=== PATIENT | male | born 1960 | race Caucasian/White ===

== ENCOUNTER 2020-12-31 11:50 | Outpatient (CLI) | payer MEDICAID | END 2020-12-31 11:51 | disposition home or self-care (01) | LOC: COV 11:50 | PROVIDERS: ATTEND Family Medicine | DX: Z20.822 Contact with and (suspected) exposure to COVID-19 (principal) ==

== ENCOUNTER 2021-10-14 11:04 | Emergency (ER) | payer MEDICAID ==
--- NOTE | 2021-10-14 12:44 | ED Physician Documentation ---
PD HPI LOWER EXT INJURY - Stated complaint Stated Complaint: L HIP PX/WEAKNESS - Chief complaint Chief Complaint: Ext Problem - History obtained from History obtained from: Patient - History of Present Illness PD HPI LOW EXT INJURY LOCATION: Left, Hip Type of injury: Other (he had sat down and felt an abrupt onset of pain left hip down laterally to knee with feeling of tightness/spasm of muscles. Has had pain for few months post ramus fracture and had gotten PT last week for ROM of the hip and Tx of IT band.). No: Fall, Blunt / blow Where injury occurred: Home Timing - onset: How many months ago (has had pain in pelvis and hip since May with fracture of ramus and muscle strain lateral hip. Was Rx opiate meds for initial few weeks. Currently with just Tylenol. ON DOAC for DVT, so not able to take regular NSAIDs.) Timing - details: Abrupt onset, Still present (had been doing reasonably well with slow healing and PT recently helping, but abrupt worse pain today with just sitting and twisting some. No new fall nor notable injury.) Worsened by: Moving (left hip, with feeling of spasm to left lateral thigh down to knee level.) Associated symptoms: No: Weakness, Numbness, Swelling, Discolored Similar symptoms before: Diagnosis (has had some pain in hip and pelvis from ramus fracture and hip muscle injury.) Recently seen: Other (physical therapy) Review of Systems Constitutional: denies: Fever, Chills Nose: denies: Rhinorrhea / runny nose, Congestion Throat: denies: Sore throat Cardiac: denies: Chest pain / pressure Respiratory: denies: Cough GI: denies: Abdominal Pain Skin: denies: Rash, Lesions Neurologic: denies: Focal weakness, Numbness PD PAST MEDICAL HISTORY - Past Medical History Cardiovascular: None Respiratory: None Neuro: None Endocrine/Autoimmune: None - Present Medications Home Medications: Ambulatory Orders Medication Instructions Recorded Confirmed Warfarin Sodium [Coumadin] 2 mg PO QDWARFARIN 10/14/21 10/14/21 Warfarin [Coumadin] 5 mg PO QDWARFARIN 10/14/21 10/14/21 dexAMETHasone [Decadron] 4 mg PO DAILY #5 tablet 10/14/21 oxyCODONE [Roxicodone] 5 mg PO Q8H PRN #18 tablet 10/14/21 tiZANidine [Zanaflex] 4 mg PO Q8H PRN #25 tablet 10/14/21 - Allergies Allergies/Adverse Reactions: Allergies Allergy/AdvReac Type Severity Reaction Status Date / Time adhesive Allergy Unknown Verified 10/14/21 11: meperidine [From Demerol] Allergy Unknown Verified 10/14/21 11: shellfish derived Allergy Anaphylaxis Verified 10/14/21 11:26 PD ED PE NORMAL - Vitals Vital signs reviewed: Yes - General General: Alert and oriented X 3, Well developed/nourished, Other (seems in marked pain with movement of left hip, with complaint of pain and spasms. ) - Back Back: No spinal TTP - Derm Derm: Normal color, Warm and dry, No rash - Extremities Extremities: No tenderness to palpate, Normal ROM s pain, Other (left hip tender laterally. Guarded ROM of the hip, so unable to assess passive ROM extent. ) - Neuro Neuro: Alert and oriented X 3, No motor deficit, No sensory deficit, Normal speech Results - Vitals Vitals: Vital Signs - 24 hr 10/14/21 10/14/21 10/14/21 11:19 13:25 15:00 Temperature 36.9 C Heart Rate 82 75 70 Respiratory 18 16 14 Rate Blood Pressure 117/59 L 112/58 L 121/55 L O2 Saturation 97 99 100 10/14/21 16:00 Temperature Heart Rate 73 Respiratory 19 Rate Blood Pressure 118/60 O2 Saturation 99 Oxygen O2 Source Room air - Rads (name of study) femur left Radiology: Prelim report reviewed (no fracture. Occult injury of hip cannot be excluded. ), See rad report CT pelvis Radiology: Prelim report reviewed (prior ramus fracture healing. No new fractures seen. Arthritic changes. ), See rad report PD MEDICAL DECISION MAKING - ED course Complexity details: reviewed results, re-evaluated patient (improved pain after IM meds for pain and PO antispasmodic. ), considered differential, d/w patient Departure - Departure Disposition: 01 Home, Self Care Clinical Impression: Chronic left hip pain Condition: Stable Record reviewed to determine appropriate education?: Yes Instructions: ED Muscle Pain Leg Cramps Prescriptions: dexAMETHasone [Decadron] 4 mg PO DAILY #5 tablet oxyCODONE [Roxicodone] 5 mg PO Q8H PRN #18 tablet PRN Reason: Pain tiZANidine [Zanaflex] 4 mg PO Q8H PRN #25 tablet PRN Reason: Spasms Comments: No new fractures are seen on your x-ray and CT scan of the pelvis and thigh. Presume some muscle spasms and a flareup of the arthritis. Continue current usual medications. Continue Tylenol 500 mg 4 times a day. To that add oxycodone 3 times a day as needed for worse pain. Also tizanidine muscle relaxant 3 times daily for spasms and stiffness. We can add Decadron steroid anti-inflammatory presuming some inflammation as well. This will not interfere with your Coumadin like NSAIDs would. Follow-up with your primary care, call for an appointment. If transmitted your prescriptions to [facility] pharmacy in [place]. My narcotic instructions I am prescribing a short course of narcotic pain medication for you. These are potentially dangerous and addictive medications that should be used carefully. These medications may constipate you. Take an sumc-dtw-rpqemjc stool softener such as docusate twice daily with plenty of water while taking these medications. If you go 24 hours without a bowel movement, take wsux-mfk-eycsoxs MiraLAX, per package instructions. Do not drink or drive while taking these medications. If you received narcotic or sedating medications while in the emergency departm ent do not drive for 24 hours. Store this medication in a safe, secure place and out of reach of children. It is a violation of federal law to give or sell this medication to another person or to use in a manner other than prescribed. The ED will not refill narcotic prescriptions, including prescriptions lost or stolen. You can dispose of unwanted medications at the [facility]'s office or at several pharmacies such as [facility]. Discharge Date/Time: 10/14/21 16:03
[2021-10-14] MEDS ORDERED: KETOROLAC 30 MG/ML VIAL IM STA (13:08)
[2021-10-14] MEDS ORDERED: HYDROmorphone 1 MG/ML CARPUJECT IM STA (13:09)
[2021-10-14] MEDS ORDERED: methocarbamoL 500 MG TABLET PO STA (13:09)
--- NOTE | 2021-10-14 14:51 | XRAY Report ---
PROCEDURE: Femur 2V LT INDICATIONS: left thigh pain today TECHNIQUE: 2 views of the femur were acquired. COMPARISON: None. FINDINGS: Bones: No fractures or dislocations. No suspicious bony lesions. Osteopenia is present. Soft tissues: No suspicious soft tissue calcifications or masses. IMPRESSION: Limited exam secondary to osteopenia. No visualized acute fracture or dislocation. However, occult in jury cannot be excluded. Recommend short interval imaging follow-up in 7-10 days as clinically indica tiffani for additional evaluation. Reviewed by: Monica Arias MD on 10/14/2021 2:50 PM PST Approved by: Monica Arias MD on 10/14/2021 2:50 PM PST Station ID: [id number]
--- NOTE | 2021-10-14 14:51 | CT Report ---
PROCEDURE: PELVIS WO INDICATIONS: worse pain left hip/pelvis, prior ramus fracture TECHNIQUE: Noncontrast 3 mm axial sections acquired through the bony pelvis, with coronal and sagittal reformatt ing. For radiation dose reduction, the following was used: automated exposure control, adjustment of mA and/or kV according to patient size. COMPARISON: X-ray hip and femur FINDINGS: Image quality: Excellent. Bones: The bones are mottled in appearance with osteopenia. There are areas of irregularity within t he superior acetabulum. In addition, areas of irregularity with superimposed sclerosis is present wit hin the superior and inferior left pubic rami. Soft tissues: The visualized soft tissues are unremarkable. IMPRESSION: 1. No gross fracture. However, there is diffuse osteopenia within the iliac bone and acetabulum as we ll as pubic rami. Rami appears to represent old fracture. While there are areas of irregularity withi n the acetabulum, this could represent areas of osteopenia. If concern for fracture persists, MRI is recommended. Reviewed by: Monica Arias MD on 10/14/2021 2:49 PM PST Approved by: Monica Arias MD on 10/14/2021 2:49 PM PST Station ID: [id number]
[2021-10-14] MEDS ORDERED: oxyCODONE 5 MG TABLET PO STA (15:26)
[2021-10-14] MEDS ORDERED: diazePAM 5 MG TABLET PO STA (15:27)
[2021-10-14 16:03] VITALS: BP 118/60
== END 2021-10-14 16:03 | disposition home or self-care (01) ==
LOC: ED 11:04
DX: M25.552 Pain in left hip (principal); G89.29 Other chronic pain; M79.652 Pain in left thigh; M62.838 Other muscle spasm; M85.89 Other specified disorders of bone density and structure, multiple sites; Z86.718 Personal history of other venous thrombosis and embolism; Z79.01 Long term (current) use of anticoagulants
CPT/HCPCS: 72192; 73552; 96372; 99283; 99284; A9270; J1170

== ENCOUNTER 2021-12-02 14:27 | Emergency (ER) | payer MEDICAID ==
[2021-12-02] MEDS ORDERED: HYDROmorphone 1 MG/ML CARPUJECT IVP STA (14:41)
--- NOTE | 2021-12-02 14:44 | ED Physician Documentation ---
History of Present Illness - Stated complaint Stated Complaint: LEFT HIP PX - Chief complaint Chief Complaint: Ext Problem - Additonal information Additional information: 61-year-old male presents emergency department for evaluation of acute left lower back pain. Reports that he had been shopping when he got back into his car (his sisters which usually causes pain) he developed a sudden pain in his low back with radiation to the thigh. He is unable to walk now without assistance. He has had this similarly in the past and thinks it sciatica. he feels like his right leg and calf are is spasm. No saddle anesthesia or fevers. unable to stand or ambulate secondary to pain and is infact writhing in pain on exam He does take Coumadin secondary to history of previous pulmonary embolus. Daily tobacco user Patient reports that he had a hip fracture in April 2021. It was treated nonoperatively. Chronic pain since then. He did discuss his pain with his primary doctor yesterday. He is prescribed a muscle relaxer as well as tramado l. The tramadol was not filled. denies fevers, saddle anesthesia. no loss of bowel or baldder function. + numbness/tingling lateral leg thigh left Review of Systems Constitutional: reports: Reviewed and negative Eyes: reports: Reviewed and negative Ears: reports: Reviewed and negative Nose: reports: Reviewed and negative Throat: reports: Reviewed and negative Cardiac: reports: Reviewed and negative GI: reports: Reviewed and negative Musculoskeletal: reports: Back pain, Extremity pain Neurologic: reports: Reviewed and negative Psychiatric: reports: Reviewed and negative PD PAST MEDICAL HISTORY - Past Medical History Cardiovascular: None Respiratory: None Neuro: None Endocrine/Autoimmune: None - Present Medications Home Medications: Ambulatory Orders Medication Instructions Recorded Confirmed Warfarin Sodium [Coumadin] 2 mg PO QDWARFARIN 10/14/21 10/14/21 Warfarin [Coumadin] 5 mg PO QDWARFARIN 10/14/21 10/14/21 dexAMETHasone [Decadron] 4 mg PO DAILY #5 tablet 10/14/21 oxyCODONE [Roxicodone] 5 mg PO Q8H PRN #18 tablet 10/14/21 tiZANidine [Zanaflex] 4 mg PO Q8H PRN #25 tablet 10/14/21 oxyCODONE [Roxicodone] 5 mg PO TID PRN #20 tablet 12/02/21 - Allergies Allergies/Adverse Reactions: Allergies Allergy/AdvReac Type Severity Reaction Status Date / Time adhesive Allergy Unknown Verified 12/02/21 14:35 meperidine [From Demerol] Allergy Unknown Verified 12/02/21 14:35 shellfish derived Allergy Anaphylaxis Verified 12/02/21 14:35 - Social History Does the pt smoke?: Yes Smoking Status: Current every day smoker PD ED PE EXPANDED - General General: Alert, In Pain (pt appears to be in pain, unable to find a position of comfort) - Cardiac Cardiac: Regular Rate, Radial strong equal, Pedal strong equal, Cap refill < 2 sec - Respiratory Respiratory: Clear to ausultation jason. No: Distress, Labored - Abdomen Abdomen: Normal Bowel sounds. No: Tender to palpation - Back Back: Soft tissue tenderness (Tenderness at the left SI point with radiation down the buttock into the left leg. No midline vertebral tenderness. motor strength 4/5 left leg. 2+ patellar bilaterally. numbness lateral left leg). No: Vertebral tenderness Results - Vitals Vitals: Vital Signs - 24 hr 12/02/21 14:31 Temperature 36.1 C L Heart Rate 98 Respiratory 20 Rate Blood Pressure 123/70 O2 Saturation 97 Oxygen O2 Source Room air - Rads (name of study) Lumbar/pelvic CT Radiology: Final report received (No significant change in ill-defined lucency and trabecular thickening involving the left iliac wing obturator ring femoral head and neck with surrounding muscular edema. Findings suggestive of patient's disease. Healing pathologic fracture of the left inferior pubic rami. Severe chronic pancreat) PD MEDICAL DECISION MAKING - ED course Complexity details: reviewed results, re-evaluated patient, considered differential, d/w patient ED course: 61-year-old male presents emergency department for evaluation of acute though chronic left low back and hip pain. He did have an iliac fracture in April of this last year which was treated conservatively. He had been out and about today and sat in his sister's car which exacerbated his pain presented to the ER unable to stand and unwilling to walk. No saddle anesthesia or loss of bowel/bladder incontinence Repeat lumbar and pelvic imaging it does show show the healing iliac fracture as well as a findings are suggestive of Paget's disease. Patient was administered multiple doses of Dilaudid here in the emergency department followed by Valium. Once this had occurred the patient was able to stand at the bedside though he was still unwilling to walk. He was thus administered 60 mg of Toradol IM and then able to stand at the bedside and grudgingly walk, albeit painful. Pt has a rx for flexeril. he is encouraged to take motrin and tylenol for pain. Will rx limited oxycodone for severe pain. I am prescribing a short course of short-acting opioid pain medication for this patient. I have reviewed the patients [employer]CISION INSTRUMENT [employer]ER AND REPAIRER and no concerning findings were noted. I have discussed that the opioids are for short term therapy only, and will not be refilled from the ED. Departure - Departure Disposition: Home, Self Care Clinical Impression: Left-sided low back pain with left-sided sciatica Qualifiers: Chronicity: chronic Qualified Code(s): M54.42 - Lumbago with sciatica, left side Condition: Stable Record reviewed to determine appropriate education?: Yes Instructions: ED Back Spasm No Trauma Ch Prescriptions: oxyCODONE [Roxicodone] 5 mg PO TID PRN #20 tablet PRN Reason: Pain Comments: Neil you are seen in the emergency department today for pain in your low back and spasm in your left leg. The CT scan of your back and pelvis did not reveal any new fractures. The old fracture is healing nicely. Please continue to use the muscle relaxer prescribed by your primary care doctor. I encourage use Tylenol or ibuprofen jxxx-csz-[id number] for pain and discomfort. For severe pain I have prescribed a limited amount of oxycodone. If at any point you lose control of your bowel or bladder function, develop high fevers or have numbness in your genital area then please return immediately to the ER. Please discuss this ED visit with your primary care provider. You would benefit from referral for physical therapy for longer-term management of your hip and back pain. Your prescriptions have been electronically sent to the [facility] in [place]. I am prescribing a short course of narcotic pain medication for you. These are potentially dangerous and addictive medications that should be used carefully. These medications may constipate you. Take an wvvo-kin-ipbexfc stool softener (docusate) twice daily with plenty of water while taking these medications. If you go 24 hours without a bowel movement, take wobk-nxp-xsnbjcl miralax, per package instructions. Do not drink or drive while taking these medications. If you received narcotic or sedating medications while in the emergency department, do not drive for 24 hours. Store this medication in a safe, secure place and out of reach of children. It is a violation of federal law to give or sell this medication to another person or to use in a manner other than prescribed. The ED will not refill narcotic prescriptions, including prescriptions lost or stolen. To dispose of unwanted medications: 1. [facility] at [address] in [place] has a medication drop box. They accept prescription medications (in pill form) Tuesday through Tuesday 9:00 a.m. to 5:00 p.m. 2. The [facility] [employer] accepts prescription medications (in pill form only) for disposal year round. Call for more information. 3. Contact the [facility] for the next [facility] sponsored prescription drug collection event. , [phone], or [phone]; Note that many narcotic pain relievers also contain Tylenol/acetaminophen. Please ensure that your total dose of acetaminophen from all sources does not exceed 3 g (3000 mg) per day.
[2021-12-02] MEDS ORDERED: HYDROmorphone 1 MG/ML CARPUJECT IM STA ×2 (14:53→15:39)
--- NOTE | 2021-12-02 16:01 | CT Report ---
PROCEDURE: LUMBAR SPINE WO INDICATIONS: left low back pain with radiation TECHNIQUE: Noncontrast 3 mm thick sections acquired from the T12 level to the sacrum. Sagittal and coronal refo rmats were constructed. For radiation dose reduction, the following was used: automated exposure co ntrol, adjustment of mA and/or kV according to patient size. COMPARISON: 10/14/[address] examination dated 12/02/2021. FINDINGS: Image quality: Excellent. Bones: There is normal bony alignment. No acute vertebral body compression fractures. There is diff use trabecular thickening involving the left femoral head and neck, left obturator ring, and left sofiya ac wing, as before. Healing mildly displaced pathologic fracture of the left inferior pubic ramus. Ce ntral spinal caliber is of normal overall caliber. No pars defects. Mild multilevel canal stenoses secondary to disc and facet disease. Multilevel foraminal stenoses, worst at L3-L4 and L4-L5 where th ere are moderate foraminal stenoses secondary to disc and facet disease. Soft tissues: Severe calcifications of the pancreas. There is thickening of the left iliacus muscle and left gluteus musculature adjacent to the left iliac wing. No retroperitoneal masses or hematomas. Visualized aorta is normal in caliber. IMPRESSION: 1. No significant change in ill-defined lucency and trabecular thickening involving the left iliac wi ng, obturator ring, femoral head and neck, with surrounding muscular edema. Findings suggestive of Pa get's disease. Nonemergent MRI of the pelvis with and without intravenous contrast is recommended for further assessment, and to evaluate for infection and neoplasm. 2. Healing pathologic fracture of the left inferior pubic ramus. 3. Severe chronic pancreatitis. Reviewed by: Jewell Miles MD on 12/02/2021 3:59 PM PST Approved by: Jewell Miles MD on 12/02/2021 3:59 PM PST Station ID: [id number]
--- NOTE | 2021-12-02 16:05 | CT Report ---
PROCEDURE: PELVIS WO INDICATIONS: hip fracture 2020 TECHNIQUE: Noncontrast 3 mm axial sections acquired through the bony pelvis, with coronal and sagittal reformatt ing. For radiation dose reduction, the following was used: automated exposure control, adjustment of mA and/or kV according to patient size. COMPARISON: 10/14/2021. FINDINGS: Image quality: Excellent. Bones: There is diffuse ill-defined lucency and trabecular thickening involving the left iliac wing, obturator ring, femoral head and neck. Ill-defined lucency and sclerosis within the right ischium an d inferior pubic ramus. Healing pathologic left inferior pubic ramus fracture is present. Mildly disp laced pathologic left femoral neck fracture (series 7 image 51). Soft tissues: There is swelling of the left iliacus, obturator internus, and gluteus musculature adj acent to the left iliac wing. IMPRESSION: 1. Lucency and trabecular thickening involving the left iliac bone, obturator ring, right ischium, le ft femoral head and neck, with adjacent muscular edema as described above, most suggestive of Paget's disease. Associated pathologic fractures of the left inferior pubic ramus and femoral neck. 2. Nonemergent MRI of the pelvis with and without intravenous contrast is recommended to assess for i nfection or neoplasm. Reviewed by: Jewell Miles MD on 12/02/2021 4:03 PM PST Approved by: Jewell Miles MD on 12/02/2021 4:03 PM PST Station ID: [id number]
[2021-12-02] MEDS ORDERED: diazePAM INJ 5 MG/ML SYRINGE IM STA (16:15)
[2021-12-02] MEDS ORDERED: KETOROLAC 60 MG/2 ML VIAL IM STA (16:44)
[2021-12-02] MEDS ORDERED: CHERRY SYRUP 10 ML UDC PO ONE (16:46)
[2021-12-02] MEDS ORDERED: DEXAMETHASONE 10 MG/ML VIAL PO STA (16:46)
[2021-12-02 18:46] VITALS: BP 150/60
== END 2021-12-02 18:45 | disposition home or self-care (01) ==
LOC: ED 14:27
DX: M54.42 Lumbago with sciatica, left side (principal); Z72.0 Tobacco use; Z86.711 Personal history of pulmonary embolism; Z79.01 Long term (current) use of anticoagulants
CPT/HCPCS: 72131; 72192; 96372; 99284; A9270; J1170

== ENCOUNTER 2021-12-06 11:10 | Outpatient (CLI) | payer MEDICAID | END 2021-12-06 11:11 | disposition critical access hospital (66) | LOC: EMS 11:10 | DX: R22.42 Localized swelling, mass and lump, left lower limb (principal); M79.605 Pain in left leg | CPT/HCPCS: A0425; A0429; A0999 ==

== ENCOUNTER 2021-12-06 11:26 | Inpatient (IN) | payer MEDICAID ==
[2021-12-06 11:53] LABS: BASOPHILS % (AUTO) 0.3 %; EOSINOPHILS % (AUTO) 0.1 %; HGB - HEMOGLOBIN 12.8 g/dL (14.0-18.0); LYMPHOCYTES # (AUTO) 1.5 10^3/uL (1.5-3.5); LYMPHOCYTES % (AUTO) 10.8 %; MEAN CORPUSCULAR HEMOGLOBIN 31.7 pg (27.0-31.0); MEAN CORPUSCULAR HGB CONC 33.7 g/dL (32.0-36.0); MEAN CORPUSCULAR VOLUME 94.1 fL (80.0-94.0); MEAN PLATELET VOLUME 8.6 fL (7.4-11.4); MONOCYTES # (AUTO) 1.4 10^3/uL (0.0-1.0); MONOCYTES % (AUTO) 10.2 %; NEUTROPHILS # (AUTO) 10.6 10^3/uL (1.5-6.6); NEUTROPHILS % (AUTO) 78.3 %; PLT - PLATELET COUNT 344 10^3/uL (130-450); RED BLOOD COUNT 4.04 10^6/uL (4.70-6.10); RED CELL DISTRIBUTION WIDTH 13.3 % (12.0-15.0); WHITE BLOOD COUNT 13.5 x10^3/uL (4.8-10.8)
[2021-12-06 12:03] LABS: CALCIUM 9.4 mg/dL (8.5-10.3); POTASSIUM 3.9 mmol/L (3.5-5.0)
[2021-12-06 12:07] LABS: ALKALINE PHOSPHATASE 141 IU/L (42-121); ALT ALANINE AMINOTRANSFERASE 13 IU/L (10-60); AST ASPARTATE AMINOTRANSFERASE 14 IU/L (10-42); BILIRUBIN,TOTAL 0.5 mg/dL (0.2-1.0); ETOH - ETHANOL < 5.0 mg/dL; LIPASE 23 U/L (22-51)
[2021-12-06 12:08] LABS: PT - PROTHROMBIN TIME 56.9 secs (9.9-12.6)
[2021-12-06] MEDS ORDERED: HYDROmorphone 1 MG/ML CARPUJECT IVP STA (12:13)
--- NOTE | 2021-12-06 12:17 | ED Physician Documentation ---
PD HPI LOWER EXT INJURY - Stated complaint Stated Complaint: GENERAL PX - Chief complaint Chief Complaint: Ext Problem - History obtained from History obtained from: Patient - Additional information Additional information: 61-year-old gentleman with alcohol and tobacco abuse history, quit drinking alcohol about 4 years ago, quit smoking 3 days ago. In December of last year he started to develop pain on the left side of the pelvis and then it became more severe in the summer and was subsequently diagnosed with pathologic fractures of the left pelvis in May by CT. He was doing okay with physical therapy but continues to have relapses of the pain, the most severe relapse started 5 days ago after getting out of the car. There was no specific injury. 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 He returns today now with more swelling above the left knee and pain that is intractable. He does note a 5 pound weight loss in the last few weeks with very poor appetite. No history of primary malignancy. He does have a history of pancreatitis in the past. 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 Review of Systems Ten Systems: 10 systems reviewed and negative Constitutional: reports: Weight Loss. denies: Fever, Chills Throat: denies: Sore throat Cardiac: denies: Chest pain / pressure, Palpitations Respiratory: denies: Dyspnea, Cough PD PAST MEDICAL HISTORY - Past Medical History Cardiovascular: None Respiratory: None Neuro: None Endocrine/Autoimmune: None - Present Medications Home Medications: Ambulatory Orders Medication Instructions Recorded Confirmed Warfarin Sodium [Coumadin] 2 mg PO QDWARFARIN 10/14/21 10/14/21 Warfarin [Coumadin] 5 mg PO QDWARFARIN 10/14/21 10/14/21 dexAMETHasone [Decadron] 4 mg PO DAILY #5 tablet 10/14/21 oxyCODONE [Roxicodone] 5 mg PO Q8H PRN #18 tablet 10/14/21 tiZANidine [Zanaflex] 4 mg PO Q8H PRN #25 tablet 10/14/21 oxyCODONE [Roxicodone] 5 mg PO TID PRN #20 tablet 12/02/21 - Allergies Allergies/Adverse Reactions: Allergies Allergy/AdvReac Type Severity Reaction Status Date / Time adhesive Allergy Unknown Verified 12/06/21 11:33 meperidine [From Demerol] Allergy Unknown Verified 12/06/21 11:33 shellfish derived Allergy Anaphylaxis Verified 12/06/21 11:33 - Social History Does the pt smoke?: Yes Smoking Status: Current every day smoker Does the pt drink ETOH?: Yes Does the pt have substance abuse?: No - Immunizations Immunizations are current?: No PD ED PE NORMAL - Vitals Vital signs reviewed: Yes - General General: Alert and oriented X 3, No acute distress - HEENT HEENT: PERRL, EOMI - Neck Neck: Supple, no meningeal sign, No bony TTP - Cardiac Cardiac: RRR, No murmur - Respiratory Respiratory: No respiratory distress, Clear bilaterally - Abdomen Abdomen: Normal bowel sounds, Soft, Non tender - Back Back: No CVA TTP, No spinal TTP - Derm Derm: Normal color, Warm and dry - Extremities Extremities: Other (He is holding the left hip externally rotated and flexed. Any movement causes him severe pain in the femur and hip. He is swollen in the area above the knee with tenderness there as well.) - Neuro Neuro: Alert and oriented X 3, Normal speech - Psych Psych: Normal mood, Normal affect Results - Vitals Vitals: Vital Signs - 24 hr 12/06/21 12/06/21 11:30 13:33 Temperature 36.3 C L 36.6 C Heart Rate 99 108 H Respiratory 18 16 Rate Blood Pressure 134/84 H 137/78 H O2 Saturation 100 97 Oxygen O2 Source Room air - Labs Labs: Laboratory Tests 12/06/21 12/06/21 12/06/21 11:47 11:47 11:47 WBC 13.5 H RBC 4.04 L Hgb 12.8 L Hct 38.0 L MCV 94.1 H MCH 31.7 H MCHC 33.7 RDW 13.3 Plt Count 344 MPV 8.6 Neut # (Auto) 10.6 H Lymph # (Auto) 1.5 [place] # (Auto) 1.4 H Eos # (Auto) 0.0 Baso # (Auto) 0.0 Absolute Nucleated RBC 0.00 Nucleated RBC % 0.0 PT 56.9 H INR 5.0 H* Sodium 132 L Potassium 3.9 Chloride 96 L Carbon Dioxide 26 Anion Gap 10.0 BUN 30 H Creatinine 1.0 Estimated GFR (MDRD) 76 L Glucose 169 H Calcium 9.4 Total Bilirubin AST ALT Alkaline Phosphatase Lipase Ethyl Alcohol 12/06/21 11:47 WBC RBC Hgb Hct MCV MCH MCHC RDW Plt Count MPV Neut # (Auto) Lymph # (Auto) [place] # (Auto) Eos # (Auto) Baso # (Auto) Absolute Nucleated RBC Nucleated RBC % PT INR Sodium Potassium Chloride Carbon Dioxide Anion Gap BUN Creatinine Estimated GFR (MDRD) Glucose Calcium Total Bilirubin 0.5 AST 14 ALT 13 Alkaline Phosphatase 141 H Lipase 23 Ethyl Alcohol < 5.0 PD MEDICAL DECISION MAKING - ED course ED course: 61-year-old gentleman Augustine presents with severe pain in the left hip. Extremity x-rays today show a femoral neck fracture, probably pathologic, potentially rela tiffani to Paget's disease although he does not carry a formal diagnosis of this. Differential diagnosis includes metastatic disease with pathologic fracture. As such a chest x-ray was done without pertinent positive findings. He also has more swelling in the leg now so a ultrasound was done to rule out DVT and there was none. He was administered 5 mg of zoledronic acid to treat Paget's disease. His INR is supratherapeutic at 5. Case discussed by phone with our orthopedic surgeon, Dr. West who feels we can manage this here after his INR is fixed or drifts down on the medicine service. Spoke with Dr. Nava for admission at 3:06 PM. Departure - Departure Disposition: [facility] DC/Xfer Clinical Impression: Pathologic fracture of femoral neck, Supratherapeutic INR Condition: Stable
[2021-12-06] MEDS ORDERED: MORPHINE 2 MG/ML CARPUJECT IVP STA (12:52)
[2021-12-06] MEDS ORDERED: KETOROLAC 15 MG/ML VIAL IVP STA (12:52)
--- NOTE | 2021-12-06 13:32 | Ultrasound Report ---
PROCEDURE: Duplex Ext Veins Left INDICATIONS: leg pain TECHNIQUE: Real-time imaging, as well as color and pulse Doppler interrogation, were performed of the lower extr emity deep veins from the inguinal ligament to the popliteal fossa. COMPARISON: None. FINDINGS: The deep veins are normally compressible, and free of intraluminal thrombus. Color and pu lse Doppler demonstrate normal phasic intraluminal flow. There is normal augmentation response to di stal compression maneuver. IMPRESSION: No evidence of left lower extremity deep venous thrombosis. Reviewed by: Dannie Headley DO on 12/06/2021 12:30 PM [facility] Approved by: Dannie Headley DO on 12/06/2021 12:30 PM [facility] Station ID: [id number]
--- NOTE | 2021-12-06 14:14 | XRAY Report ---
PROCEDURE: Chest 1 View X-Ray INDICATIONS: weight loss TECHNIQUE: One view of the chest was acquired. COMPARISON: None FINDINGS: Surgical changes and devices: Kyphoplasty changes of the midthoracic spine. Lungs and pleura: No pleural effusions or pneumothorax. Lungs are clear. Mediastinum: Mediastinal contours appear normal. Heart size is normal. Bones and chest wall: No suspicious bony lesions. Overlying soft tissues appear unremarkable. IMPRESSION: No evidence of an acute cardiopulmonary abnormality. Reviewed by: Dannie Headley DO on 12/06/2021 1:12 PM [facility] Approved by: Dannie Headley DO on 12/06/2021 1:12 PM [facility] Station ID: [id number]
--- NOTE | 2021-12-06 14:15 | XRAY Report ---
PROCEDURE: Knee 3 View LT INDICATIONS: leg pain TECHNIQUE: 3 views of the left knee(s) were acquired. COMPARISON: None. FINDINGS: Bones: No fractures or dislocations. No suspicious bony lesions. Diffuse osseous demineralization. Soft tissues: No joint effusion. No suspicious soft tissue calcifications. IMPRESSION: No evidence of an acute osseous abnormality. Reviewed by: Dannie Headley DO on 12/06/2021 1:14 PM [facility] Approved by: Dannie Headley DO on 12/06/2021 1:14 PM [facility] Station ID: [id number]
--- NOTE | 2021-12-06 14:18 | XRAY Report ---
PROCEDURE: Hip w/Pelvis 2-3V LT INDICATIONS: leg pain TECHNIQUE: AP pelvis with lateral view(s) of the left hip(s). COMPARISON: None. FINDINGS: Exam is limited given obliquity on every image. Bones: There is extensive osseous demineralization. There is a displaced and angulated left femoral n donte fracture. Evaluation of the pubic ring demonstrates no displaced fracture however limited in eval uation given overlying bowel and obliquity along with decreased mineralization. Soft tissues: The visualized bowel gas pattern is normal. No suspicious soft tissue calcifications. IMPRESSION: Displaced and angulated proximal left femur fracture. Reviewed by: Dannie Headley DO on 12/06/2021 1:16 PM [facility] Approved by: Dannie Headley DO on 12/06/2021 1:16 PM [facility] Station ID: [id number]
[2021-12-06] MEDS ORDERED: ZOLEDRONIC ACID 5 MG/100 ML IV STA (14:41)
[2021-12-06] MEDS ORDERED: ZOLEDRONIC ACID 3 MG in SODIUM CHLORIDE 0.9% 100ML 100 ML IV SCH (15:00)
[2021-12-06] MEDS ORDERED: ONDANSETRON 4 MG/2 ML VIAL IVP PRN (15:06)
[2021-12-06] MEDS ORDERED: ONDANSETRON ODT 4 MG TABLET TL PRN (15:06)
[2021-12-06 15:31] LABS: CORONAVIRUS 229E-RESP PCR NOT DETECTED; CORONAVIRUS HKU1-RESP PCR NOT DETECTED; CORONAVIRUS NL63-RESP PCR NOT DETECTED; CORONAVIRUS OC43-RESP PCR NOT DETECTED; HUMAN METAPNEUMOVIRUS NOT DETECTED; INFLUENZA A- RESP PCR PANEL NOT DETECTED; RHINOVIRUS/ENTEROVIRUS NOT DETECTED; SARS-CoV-2 -RESP PCR PANEL NOT DETECTED
[2021-12-06 15:32] LABS: B. PARAPERTUSSIS- RESP PCR PAN NOT DETECTED; B. PERTUSSIS- RESP PCR PANEL NOT DETECTED; C. PNEUMONIAE- RESP PCR PANEL NOT DETECTED; INFLUENZA B - RESP PCR PANEL NOT DETECTED; M. PNEUMONIAE- RESP PCR PANEL NOT DETECTED; PARAINFLUENZA VIRUS 1 NOT DETECTED; PARAINFLUENZA VIRUS 2 NOT DETECTED; PARAINFLUENZA VIRUS 3 NOT DETECTED; PARAINFLUENZA VIRUS 4 NOT DETECTED; RSV- RESP PCR PANEL NOT DETECTED
--- NOTE | 2021-12-06 15:58 | HISTORY & PHYSICAL EXAMINATION ---
Chief Complaint - Chief Complaint Chief Complaint: left hip pain History of Present Illness - Admitted From Admitted From:: emergency department - History of Present Illness HPI Comment/Other: Pt presented today to the ED due to continued left hip pain after he was seen 12/02. He had been in the car with his daughter driving when he had acute onset hip pain and was unable to bear weight. He had a previous left inferior pubic ramous pelvic fracture (05/2021) that occurred suddenly while he was sitting on the edge of his bathtub and was also found to have a femoral neck fracture at the ED on 12/02 that were again visualized today. He states that he has had a history of frequent fractures since the age of 3 when he fractured his left femur, fibula and tibia in a sledding accident. He has fractured ribs, both ra dius and ulna bones, wrist bones, and vertebrae. He denies any fevers, weight loss, decreased appetite, or trauma to the area. His PCP is Dr. Kruse at [facility] - he has not been in a while due to distance. History - Past Medical History Cardiovascular: reports: None Respiratory: reports: None Neuro: reports: Peripheral neuropathy Endocrine/Autoimmune: reports: None : reports: Nocturia HEENT: reports: None Psych: reports: Depression Musculoskeletal: reports: Other (frequent fractures starting at age 3 with left femur and tib/fib from a sledding accident, T7-T8 compression fracture, multiple broken ribs from wrestling, has broken both radius/ulna, multiple metacarpals, stress fx R leg) Derm: reports: None - Past Surgical History Ortho: reports: Other (fracture repairs) HEENT: reports: Tonsil/Adenoidectomy - Family & Social History Family History Comment/Other: The patient's mother is 84 yeras old and has Alzheimer's. His father is 87 years old and has a history of prostate cancer. He has one sister and one brother. He also has 2 half-sisters and 2 half-brothers, one of which struggles with depression. His in 2018 and he has no biological children. Living arrangement: At home Living Situation: With family Social History Notes: Patient lives at home in a 2-story home with his sister. 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 He has not worked since 2017 when he stopped to take care of his . - Substance History Use: Uses substance without health or social issues: Tobacco (patient reports he quit smoking this wk, has a previous history of 2 PPD x 50 years) Abuse: Recurrent use of substance despite neg consequences: Alcohol (patient reports alcohol abuse (bottle of schnapps daily) that he has struggle with for 45 years, he quit drinking in 2018 after the of his who from her alcoholism and liver failure) - POLST Patient has POLST: No Meds/Allgy - Home Medications Home Medications: Ambulatory Orders Medication Instructions Recorded Confirmed Warfarin Sodium [Coumadin] 2 mg PO QDWARFARIN 10/14/21 10/14/21 Warfarin [Coumadin] 5 mg PO QDWARFARIN 10/14/21 10/14/21 dexAMETHasone [Decadron] 4 mg PO DAILY #5 tablet 10/14/21 oxyCODONE [Roxicodone] 5 mg PO Q8H PRN #18 tablet 10/14/21 tiZANidine [Zanaflex] 4 mg PO Q8H PRN #25 tablet 10/14/21 oxyCODONE [Roxicodone] 5 mg PO TID PRN #20 tablet 12/02/21 - Allergies Allergies/Adverse Reactions: Allergies Allergy/AdvReac Type Severity Reaction Status Date / Time adhesive Allergy Unknown Verified 12/06/21 11:33 meperidine [From Demerol] Allergy Unknown Verified 12/06/21 11:33 shellfish derived Allergy Anaphylaxis Verified 12/06/21 11:33 Review of Systems - Constitutional Constitutional: denies: Fever, Poor appetite, Diaphoresis, Night sweats, Weight loss (previous wt loss endorsed but no recent unintentional) - Eyes Eyes: denies: Blurred vision, Spots in vision, Field loss, Vision loss, Dipolpia - Ears, Nose & Throat Ears, Nose & Throat: denies: Hearing loss, Tinnitus, Vertigo, Nosebleeds - Cardiovascular Cariovascular: denies: Irregular heart rate, Palpitations, Chest pain, Edema, Lightheadedness, Syncope - Respiratory Respiratory: denies: Cough, Wheezing, Snoring, SOB at rest, SOB with exertion - Gastrointestinal Gastrointestinal: denies: Abdominal pain, Abdominal distention, Constipation, Diarrhea, Change in bowel habits - Genitourinary Genitourinary: reports: Urgency, Nocturia (waking 4-5 x nightly with weak stream). denies: Dysuria - Musculoskeletal Musculoskeletal: reports: Joint pain (left hip down to knee) - Integumentary Integumentary: denies: Rash, Lesions, Lumps - Neurological Neurological: denies: Headache, Dizziness, Numbness - Psychiatric Psychiatric: reports: Depression, Suicidal. denies: Delusions, Hallucinations, Homicidal - Endocrine Endocrine: denies: Polyuria, Polydypsia - Hematologic/Lymphatic Hematologic/Lymphatic: denies: Anemia, Bruising Prior Level of Functionality: Patient states that he was previously very active with golf and walking. He is able to ambulate independently at home and complete all his daily tasks. His bedroom is upstairs in his home and since his pelvic fracture he has been scooting up the stairs on his buttock and lifting himself up with his arms at the top of the stairs. Exam - Vital Signs Vital Signs: Vital Signs x48h Temp Pulse Resp BP Pulse Ox 12/06/21 13:33 36.6 C 108 H 16 137/78 H 97 12/06/21 11:30 36.3 C L 99 18 134/84 H 100 - Physical Exam General Appearance: positive: No acute distress, Alert Eyes Bilateral: positive: Normal inspection, PERRL Neck: positive: Nml inspection, No JVD Respiratory: positive: Chest non-tender, No respiratory distress, Breath sounds nml Cardiovascular: positive: Regular rate & rhythm, No murmur, No gallop Peripheral Pulses: positive: 1+ Abdomen: positive: Non-tender, Nml bowel sounds, No distention Skin: positive: Color nml, No rash, Warm, Dry Extremities: positive: Nml appearance, No pedal edema, Other (tenderness around left hip and down to left knee, no signs of neurovascular compromise.) Neurologic/Psychiatric: positive: Oriented x3, Mood/affect nml Conclusion/Plan - Problem List (1) Pathologic fracture of femoral neck Conclusion/Plan: This fracture had intended to be fixed surgically tomorrow with Dr. West however after extensive discussion and review of history and imaging, this patient qualifies for a more extensive work up. This fracture would likely heal very poorly after repair due to underlying pathology. (2) Frequent fractures of bone Conclusion/Plan: Discussed case with orthopedic surgeon and there is concern for underlying pathology. Have considered etiologies such as Paget's disease of the bone, multiple myeloma, osteogenesis imperfecta, but his history does not match so far with our differential. His most recent pelvic fracture and femoral neck fracture have both been atraumatic and are pathologic based on xray results. His frequent fractures have severely disabled the patient from doing the things he loves and have contributed to his current suicidal ideation. Called [facility] for possible transfer for further work-up and surgical repair. (3) Supratherapeutic INR Conclusion/Plan: Patient presents with a supratherapeutic INR of 5 today. Has been given Vit K orally to lower this if he is to undergo surgery tomorrow. Will continue to monitor INR frequently. (4) Suicidal ideation Conclusion/Plan: Today he endorses that he has struggled with suicidal ideation that has been increased due to his inability to golf and do the things he loves. He has thought of a specific plan to shoot himself and he does have the means at his home. He states that he has never unlocked the gun cabinet and would not go through with it because "it would kill his mother" and he couldn't do that to her. He is currently taking Fluoxetine 10 mg from his PCP and had discussed increasing his dose to 20 mg recently. We will continue to monitor him and connect him with any resources we can. (5) Elevated WBC count Conclusion/Plan: Patient has elevated WBC at 13.5. Chest xray was unremarkable. Will order urinalysis to investigate further etiology. (6) BPH w urinary obs/LUTS Conclusion/Plan: Patient reports waking 4-5 times nightly to urinate with a weak stream. Recommend f/u with his PCP for further management. (7) Chronic pulmonary embolism Conclusion/Plan: Patient has a hx of developing PE in the past. He is on automotive specialty technician anticoagulation that was previously managed by his PCP. - Lab Results Fish Bones: 12/06/21 11:47 12/06/21 11:47
[2021-12-06] MEDS: MORPHINE 2 MG/ML CARPUJECT IVP PRN ×2 (16:27→19:34)
[2021-12-06] MEDS: SODIUM CHLORIDE 0.9% 1,000 ML IV SCH (17:09)
[2021-12-06] MEDS: SODIUM CHLORIDE FLUSH 0.9% 10 ML SYRINGE IVP SCH (17:09)
[2021-12-06] MEDS ORDERED: PHYTONADIONE 10 MG/ML AMP PO ONE (17:28)
[2021-12-06] MEDS ORDERED: CHERRY SYRUP 10 ML UDC PO ONE (17:28)
--- NOTE | 2021-12-06 19:28 | HISTORY & PHYSICAL EXAMINATION ---
HPI - History Obtained From History obtained from: Patient Exam limitations: No limitations - History of Present Illness Pain/Problem Location Description: Left hip and left thigh Severity at the worst: reports: Moderate HPI Comment/Other: This is a 61-year-old man is getting in a car and had difficulty on about December 02. He had marked difficulty getting out of the car. His pain was in the left hip and thigh. He was seen in the emergency room here at [facility], had CT scan and was discharged to home. He returns today with marked increase in pain in the same area as before without any history of injury. He was doing well up until April 2021. At that time he was playing 18 holes of golf. He sat on the edge of the bathtub, felt a pop and had pain in his pelvis, later diagnosed as having a pubic ramus fracture in September 2021. Is never been worked up for any pathologic fractures. His sister is a nurse and apparently has had fractures of her femur but related to trauma. His parents are alive in their 80s. He has a history of fractures in the past, dating back to a young age. He has been a smoker for approximately 50 years of cigarettes; states he quit smoking this week. He has a history of alcohol use for 40 years or more and quit in about 2018 when his . He has lost about 50 pounds of weight in the past 4 years; he says his weight loss was not intentional. He also has a history of pulmonary embolism; at least 2 or more since 2017.He is been on anticoagulation for the past 3 to 4 years with Coumadin. He denies diabetes. He is not aware of any malignancy. He does have urinary frequency and has to go to the bathroom at least once at night. He denies hematuria. His appetite fluctuates despite persistent weight loss. He does have suicidal ideation but no suicidal attempts. He moved from the [facility] to [facility] to live with his sister. PMH/PSH - Past Medical History Cardiovascular: positive: None Respiratory: positive: None, COPD Neuro: positive: Peripheral neuropathy Endocrine/Autoimmune: positive: None GI: positive: GERD : positive: Nocturia HEENT: positive: None Psych: positive: Depression Musculoskeletal: positive: Other (frequent fractures starting at age 3 with left femur and tib/fib from a sledding accident, T7-T8 compression fracture, multiple broken ribs from wrestling, has broken both radius/ulna, multiple metacarpals, stress fx R leg) Derm: positive: None - Past Surgical History General: positive: Other Ortho: positive: Other (fracture repairs) HEENT: positive: Tonsil/Adenoidectomy Social & Family Hx - Social History Does the pt smoke?: Yes Smoking Status: Former smoker Does the pt drink ETOH?: Yes Does the pt have substance abuse?: No - POLST Patient has POLST: No Meds/Allgy - Home Medications Home Medications: Ambulatory Orders Medication Instructions Recorded Confirmed Warfarin Sodium [Coumadin] 2 mg PO QDWARFARIN 10/14/21 10/14/21 Warfarin [Coumadin] 5 mg PO QDWARFARIN 10/14/21 10/14/21 dexAMETHasone [Decadron] 4 mg PO DAILY #5 tablet 10/14/21 oxyCODONE [Roxicodone] 5 mg PO Q8H PRN #18 tablet 10/14/21 tiZANidine [Zanaflex] 4 mg PO Q8H PRN #25 tablet 10/14/21 oxyCODONE [Roxicodone] 5 mg PO TID PRN #20 tablet 12/02/21 - Allergies Allergies/Adverse Reactions: Allergies Allergy/AdvReac Type Severity Reaction Status Date / Time adhesive Allergy Unknown Verified 12/06/21 11:33 meperidine [From Demerol] Allergy Unknown Verified 12/06/21 11:33 shellfish derived Allergy Anaphylaxis Verified 12/06/21 11:33 Exam - Vital Signs Vital Signs: Vital Signs x48h Temp Pulse Pulse Resp BP BP Pulse Ox 12/06/21 17:09 36.6 C 95 18 129/70 100 12/06/21 16:05 36.7 C 94 16 146/98 H 98 12/06/21 13:33 36.6 C 108 H 16 137/78 H 97 12/06/21 11:30 36.3 C L 99 18 134/84 H 100 - Physical Exam General Appearance: positive: Mild distress Respiratory: positive: Chest non-tender, No respiratory distress Peripheral Pulses: positive: 2+ Neurologic/Psychiatric: positive: Oriented x3, Motor nml, Sensation nml Comments/Other: Left hip is flexed shortened and externally rotated. He has marked pain with any attempted passive movement left hip. Left knee is nontender and without swelling. There is mild swelling to left thigh. Skin intact. There is no sign of expanding hematoma. Results - Lab Results Fish Bones: 12/06/21 11:47 12/06/21 11:47 Other Lab Results: Lab Results x24hrs 12/06/21 12/06/21 12/06/21 Range/Units 14:35 11:47 11:47 WBC (4.8-10.8) x10^3/uL RBC (4.70-6.10) 10^6/uL Hgb (14.0-18.0) g/dL Hct (42.0-52.0) % MCV (80.0-94.0) fL MCH (27.0-31.0) pg MCHC (32.0-36.0) g/dL RDW (12.0-15.0) % Plt Count (130-450) 10^3/uL MPV (7.4-11.4) fL Neut # (Auto) (1.5-6.6) 10^3/uL Lymph # (Auto) (1.5-3.5) 10^3/uL Morrison # (Auto) (0.0-1.0) 10^3/uL Eos # (Auto) (0.0-0.7) 10^3/uL Baso # (Auto) (0.0-0.1) 10^3/uL Absolute Nucleated RBC x10^3/uL Nucleated RBC % /100WBC PT (9.9-12.6) secs INR (0.8-1.2) Sodium 132 L (135-145) mmol/L Potassium 3.9 (3.5-5.0) mmol/L Chloride 96 L (101-111) mmol/L Carbon Dioxide 26 (21-32) mmol/L Anion Gap 10.0 (6-13) BUN 30 H (6-20) mg/dL Creatinine 1.0 (0.6-1.2) mg/dL Estimated GFR (MDRD) 76 L (>89) Glucose 169 H (70-100) mg/dL Calcium 9.4 (8.5-10.3) mg/dL Total Bilirubin 0.5 (0.2-1.0) mg/dL AST 14 (10-42) IU/L ALT 13 (10-60) IU/L Alkaline Phosphatase 141 H (42-121) IU/L Lipase 23 (22-51) U/L Nasal Adenovirus (PCR) NOT DETECTED Nasal B. parapertussis DNA (PCR) NOT DETECTED Nasal Coronavir 229E PCR NOT DETECTED Nasal Coronavir HKU1 PCR NOT DETECTED Nasal Coronavir NL63 PCR NOT DETECTED Nasal Coronavir OC43 PCR NOT DETECTED Nasal Enterovir/Rhinovir PCR NOT DETECTED Nasal Influenza B PCR NOT DETECTED Nasal Influenza A PCR NOT DETECTED Nasal Parainfluen 1 PCR NOT DETECTED Nasal Parainfluen 2 PCR NOT DETECTED Nasal Parainfluen 3 PCR NOT DETECTED Nasal Parainfluen 4 PCR NOT DETECTED Nasal RSV (PCR) NOT DETECTED Nasal B.pertussis DNA PCR NOT DETECTED Nasal C.pneumoniae (PCR) NOT DETECTED Randall Human Metapneumo PCR NOT DETECTED Nasal M.pneumoniae (PCR) NOT DETECTED Nasal SARS-CoV-2 (PCR) NOT DETECTED Ethyl Alcohol < 5.0 mg/dL 12/06/21 12/06/21 Range/Units 11:47 11:47 WBC 13.5 H (4.8-10.8) x10^3/uL RBC 4.04 L (4.70-6.10) 10^6/uL Hgb 12.8 L (14.0-18.0) g/dL Hct 38.0 L (42.0-52.0) % MCV 94.1 H (80.0-94.0) fL MCH 31.7 H (27.0-31.0) pg MCHC 33.7 (32.0-36.0) g/dL RDW 13.3 (12.0-15.0) % Plt Count 344 (130-450) 10^3/uL MPV 8.6 (7.4-11.4) fL Neut # (Auto) 10.6 H (1.5-6.6) 10^3/uL Lymph # (Auto) 1.5 (1.5-3.5) 10^3/uL Morrison # (Auto) 1.4 H (0.0-1.0) 10^3/uL Eos # (Auto) 0.0 (0.0-0.7) 10^3/uL Baso # (Auto) 0.0 (0.0-0.1) 10^3/uL Absolute Nucleated RBC 0.00 x10^3/uL Nucleated RBC % 0.0 /100WBC PT 56.9 H (9.9-12.6) secs INR 5.0 H* (0.8-1.2) Sodium (135-145) mmol/L Potassium (3.5-5.0) mmol/L Chloride (101-111) mmol/L Carbon Dioxide (21-32) mmol/L Anion Gap (6-13) BUN (6-20) mg/dL Creatinine (0.6-1.2) mg/dL Estimated GFR (MDRD) (>89) Glucose (70-100) mg/dL Calcium (8.5-10.3) mg/dL Total Bilirubin (0.2-1.0) mg/dL AST (10-42) IU/L ALT (10-60) IU/L Alkaline Phosphatase (42-121) IU/L Lipase (22-51) U/L Nasal Adenovirus (PCR) Nasal B. parapertussis DNA (PCR) Nasal Coronavir 229E PCR Nasal Coronavir HKU1 PCR Nasal Coronavir NL63 PCR Nasal Coronavir OC43 PCR Nasal Enterovir/Rhinovir PCR Nasal Influenza B PCR Nasal Influenza A PCR Nasal Parainfluen 1 PCR Nasal Parainfluen 2 PCR Nasal Parainfluen 3 PCR Nasal Parainfluen 4 PCR Nasal RSV (PCR) Nasal B.pertussis DNA PCR Nasal C.pneumoniae (PCR) Randall Human Metapneumo PCR Nasal M.pneumoniae (PCR) Nasal SARS-CoV-2 (PCR) Ethyl Alcohol mg/dL - Diagnostic Imaging Results Diagnostic Imaging Results: negative: Read independently (Displaced basilar neck fracture left hip. This is a pathologic fracture with multiple lytic lucencies involving the entire left femur, thinning of cortical bone left hip and left femur and changes in the left hemipelvis of a similar type.) Impression/Plan - Problem List Problem List: 1. Pathologic fracture left hip I do not know the etiology; the differential include metabolic bone disease and certainly malignancy. He needs a work-up for the bone disease including bone biopsy. Blood dyscrasia such as multiple myeloma need to be considered as well as metastatic disease. His alkaline phosphatase is 142 which is mildly elevated and is certainly not necessarily characteristic of Paget's disease as was mentioned by the radiologist.I have recommended the current CT scan of pelvis and entire left femur. Ordinarily, open reduction internal fixation of the left hip would be considered but I am concerned that his fracture will not heal and that an arthroplasty may need to be considered. 2. Chronic anticoagulation with abnormal INR of 5.0 This needs to be corrected as he is likely to need surgery for his hip fracture. He is not safe to proceed to surgery at this time. 3. Chronic anemia 4. Low BMI which suggest chronic disease and poor nutrition; This is associated with weight loss of about 50 pounds in the past 4 years 5. Chronic cigarette smoking history of a least 50 years; this increases his likelihood of malignancy 6. History of chronic alcohol use although he quit in about 2017 7. Benign prostatic hypertrophy by history 8. Suicidal ideation This patient presents a complex problem with pathologic fracture and multiple comorbidities; undiagnosed as to why he has a pathologic fracture. This gent mali would probably best served with a multidisciplinary level of care such as [facility]. However, there is a premium on beds and he may need to be treated here if he cannot be transferred with input from tertiary care center.I have discussed the case with our hospitalist, Dr Nava
[2021-12-06] MEDS: SODIUM CHLORIDE FLUSH 0.9% 10 ML SYRINGE IVP PRN (19:35)
[2021-12-06 19:41] LABS: BILIRUBIN,URINE NEGATIVE (NEGATIVE); GLUCOSE, URINE (UA) NEGATIVE (NEGATIVE); KETONES,URINE (UA) NEGATIVE (NEGATIVE); LEUKOCYTE ESTERASE, URINE NEGATIVE (NEGATIVE); NITRITE,URINE NEGATIVE (NEGATIVE); OCCULT BLOOD,URINE SMALL (NEGATIVE); PH,URINE 5.5 PH (5.0-7.5); PROTEIN,URINE 30 mg/dL (NEGATIVE); UROBILINOGEN,URINE 0.2 (NORMAL) E.U./dL (NORMAL)
[2021-12-06 19:42] LABS: CLARITY,URINE HAZY (CLEAR)
[2021-12-06 19:53] LABS: WBC,URINE 0-3 /HPF (0-3)
[2021-12-06 19:54] LABS: BACTERIA,URINE Rare /HPF (None Seen); MUCUS,URINE Few Strands; SQUAMOUS EPITHELIAL CELL,UR RARE Squamous (<= Few)
[2021-12-06 19:55] LABS: CASTS, URINE 3-5 Hyaline Casts /LPF
[2021-12-06 19:56] LABS: SPERM,URINE PRESENT
[2021-12-06] MEDS: FLUoxetine 10 MG CAPSULE PO SCH (20:26)
[2021-12-06] MEDS: oxyCODONE 5 MG TABLET PO PRN (20:27)
[2021-12-06] MEDS: ACETAMINOPHEN 325 MG TABLET PO PRN (20:27)
[2021-12-06] MEDS: TAMSULOSIN 0.4 MG CAPSULE PO SCH (20:27)
--- NOTE | 2021-12-06 20:47 | CT Report ---
PROCEDURE: PELVIS WO INDICATIONS: fracture TECHNIQUE: Noncontrast 3 mm axial sections acquired through the bony pelvis, with coronal and sagittal reformatt ing. For radiation dose reduction, the following was used: automated exposure control, adjustment of mA and/or kV according to patient size. COMPARISON: CT dated 12/02/2021. FINDINGS: Image quality: Diagnostic. Bones: Diffuse osteopenia as before. Redemonstration of diffuse ill-defined lucency and trabecular t hickening of the left iliac wing as well as the left pelvis. Findings involve the inferior and superi or pubic ramus on the left as well as the inferior pubic ramus on the right. No definite fracture of the right pelvis. Redemonstration of pathologic fracture through the femoral neck and left inferior p ubic ramus. Possible nondisplaced fracture of the proximal left superior pubic ramus. Degenerative ch anges of the bilateral femoral acetabular joints. Soft tissues: Vascular calcifications of the distal abdominal aorta and iliac vessels. No aneurysmal dilatation. Unremarkable noncontrast appearance of the pelvic soft tissues. Soft tissue swelling leland rounding the left femoral neck fracture. Small left hip joint effusion. Prostatomegaly. IMPRESSION: Redemonstration of lucency and trabecular thickening involving the left iliac bone, actually greater ring, ligation, left femoral head and neck consistent with Paget's disease. There is associated patho logic fracture of the left inferior pubic ramus and left femoral neck with possible nondisplaced frac ture of the left superior pubic ramus. Redemonstration of associated soft tissue edema surrounding th e fracture and small joint effusion. As before, consider nonemergent MRI of the pelvis/hip with and w ithout intravenous contrast to assess for possible infectious or neoplastic process. Reviewed by: oLuie Moore MD on 12/06/2021 8:45 PM PST Approved by: Louie Moore MD on 12/06/2021 8:45 PM PST Station ID: [id number]
--- NOTE | 2021-12-06 20:52 | CT Report ---
PROCEDURE: LOWER EXTREMITY WO - LT INDICATIONS: fracture TECHNIQUE: Noncontrast 3 mm axial sections acquired of the left femur, with coronal and sagittal reformats. COMPARISON: CT pelvis dated same day as well as 12/02/2021 FINDINGS: Image quality: Excellent. Diffuse osteopenia. There is lucency and trabecular thickening involving the visualized portions of t he left pelvis as well as the left femur extending from the femoral head through the distal third of the femoral diaphysis. Redemonstration of known pathologic fracture involving the left femoral neck. No other fractures seen. Moderate degenerative changes of the left knee. Associated soft tissue edema of the subcutaneous soft tissues of the left lower extremity. Edema surrounding the femoral neck wit h small left hip effusion. There are multiple enlarged pelvic sidewall lymph nodes on the left. IMPRESSION: Diffuse irregular trabecular thickening and lucency involving the left femur and visualized portions of the left pelvis compatible with suspected Paget's disease. Redemonstration of known fracture of th e left femoral neck. No other fractures identified. There is left pelvic sidewall adenopathy. Recommend nonemergent MRI with and without contrast of the left femur to evaluate for possible underl angélica infectious or neoplastic process. Reviewed by: Louie Moore MD on 12/06/2021 8:50 PM PST Approved by: Louie Moore MD on 12/06/2021 8:50 PM PST Station ID: [id number]
[2021-12-06 23:19] LABS: INR 3.3 (0.8-1.2); PT - PROTHROMBIN TIME 37.1 secs (9.9-12.6)
[2021-12-07] MEDS: SODIUM CHLORIDE FLUSH 0.9% 10 ML SYRINGE IVP SCH ×4 (01:27→23:49)
[2021-12-07] MEDS: SODIUM CHLORIDE 0.9% 1,000 ML IV SCH (02:44)
[2021-12-07] MEDS: MORPHINE 2 MG/ML CARPUJECT IVP PRN ×5 (05:48→23:49)
[2021-12-07 06:04] LABS: BASOPHILS # (AUTO) 0.1 10^3/uL (0.0-0.1); BASOPHILS % (AUTO) 0.7 %; EOSINOPHILS # (AUTO) 0.2 10^3/uL (0.0-0.7); HCT - HEMATOCRIT 31.6 % (42.0-52.0); HGB - HEMOGLOBIN 10.4 g/dL (14.0-18.0); LYMPHOCYTES # (AUTO) 1.5 10^3/uL (1.5-3.5); LYMPHOCYTES % (AUTO) 15.6 %; MEAN CORPUSCULAR HEMOGLOBIN 31.4 pg (27.0-31.0); MEAN CORPUSCULAR HGB CONC 32.9 g/dL (32.0-36.0); MEAN CORPUSCULAR VOLUME 95.5 fL (80.0-94.0); MEAN PLATELET VOLUME 8.7 fL (7.4-11.4); MONOCYTES # (AUTO) 0.9 10^3/uL (0.0-1.0); MONOCYTES % (AUTO) 9.9 %; NEUTROPHILS # (AUTO) 6.7 10^3/uL (1.5-6.6); NEUTROPHILS % (AUTO) 71.4 %; PLT - PLATELET COUNT 301 10^3/uL (130-450); RED BLOOD COUNT 3.31 10^6/uL (4.70-6.10); RED CELL DISTRIBUTION WIDTH 13.6 % (12.0-15.0); WHITE BLOOD COUNT 9.4 x10^3/uL (4.8-10.8)
[2021-12-07 06:08] LABS: CALCIUM 8.4 mg/dL (8.5-10.3); CREATININE 0.9 mg/dL (0.6-1.2); POTASSIUM 4.3 mmol/L (3.5-5.0)
[2021-12-07 06:35] LABS: INR 1.8 (0.8-1.2); PT - PROTHROMBIN TIME 19.6 secs (9.9-12.6)
--- NOTE | 2021-12-07 09:28 | PROVIDER PROGRESS NOTE ---
Subjective - Prog Note Date Prog Note Date: 12/07/21 Prog Note Time: 09:25 - Subjective Pt reports feeling: Worse Subjective: Patient is complaining of worsening pain of the hip today. He states that he was able to get some rest overnight, however no is uncomfortable. He denies any chest pain, shortness of breath or loss of sensation of the extremity. Objective - Vital Signs/Intake & Output Vital Signs: Vital Signs x48h Temp Pulse Resp BP Pulse Ox 12/07/21 08:00 36.6 C 77 21 128/52 L 100 Intake & Output: Intake & Output 12/04/21 12/05/21 12/06/21 12/07/21 23:59 23:59 23:59 23:59 Intake Total 470 958.333 Output Total 150 150 Balance 320 808.333 - Objective General Appearance: positive: Other (patient is drowsy this morning, has just received pain medication. He is in mild distress due to continued hip pain. Speaks in full sentences.) Eyes Bilateral: positive: Normal inspection, PERRL Neck: positive: Nml inspection, No JVD Respiratory: positive: Chest non-tender, No respiratory distress, Breath sounds nml Cardiovascular: positive: Regular rate & rhythm, No murmur, No gallop Peripheral Pulses: 1+ Dorsalis pedis (R), 1+ Dorsalis pedis (L) Abdomen: positive: Non-tender, Nml bowel sounds, No distention Skin: positive: Color nml, No rash, Warm, Dry Extremities: positive: Other (moderate pain around left hip down to knee. swelling has improved and there does not appear to be erythema around the area. no signs of neurovascular compromise.) Neurologic/Psychiatric: positive: Motor nml, Sensation nml, Mood/affect nml, O ther (Oriented to person and time, he recalls where he is but does forget deatils of the admission and does not recall conversation with surgeon last night.) - Lab Results Fish Bones: 12/07/21 05:51 12/07/21 05:51 Other Labs: Lab Results x24hrs 12/07/21 12/07/21 12/07/21 Range/Units 05:51 05:51 05:51 WBC 9.4 (4.8-10.8) x10^3/uL RBC 3.31 L (4.70-6.10) 10^6/uL Hgb 10.4 L (14.0-18.0) g/dL Hct 31.6 L (42.0-52.0) % MCV 95.5 H (80.0-94.0) fL MCH 31.4 H (27.0-31.0) pg MCHC 32.9 (32.0-36.0) g/dL RDW 13.6 (12.0-15.0) % Plt Count 301 (130-450) 10^3/uL MPV 8.7 (7.4-11.4) fL Neut # (Auto) 6.7 H (1.5-6.6) 10^3/uL Lymph # (Auto) 1.5 (1.5-3.5) 10^3/uL [place] # (Auto) 0.9 (0.0-1.0) 10^3/uL Eos # (Auto) 0.2 (0.0-0.7) 10^3/uL Baso # (Auto) 0.1 (0.0-0.1) 10^3/uL Absolute Nucleated RBC 0.00 x10^3/uL Nucleated RBC % 0.0 /100WBC PT 19.6 H (9.9-12.6) secs INR 1.8 H (0.8-1.2) Sodium 135 (135-145) mmol/L Potassium 4.3 (3.5-5.0) mmol/L Chloride 100 L (101-111) mmol/L Carbon Dioxide 25 (21-32) mmol/L Anion Gap 10.0 (6-13) BUN 30 H (6-20) mg/dL Creatinine 0.9 (0.6-1.2) mg/dL Estimated GFR (MDRD) 86 L (>89) Glucose 117 H (70-100) mg/dL Calcium 8.4 L (8.5-10.3) mg/dL Total Bilirubin (0.2-1.0) mg/dL AST (10-42) IU/L ALT (10-60) IU/L Alkaline Phosphatase (42-121) IU/L Lipase (22-51) U/L Urine Color Urine Clarity (CLEAR) Urine pH (5.0-7.5) PH Ur Specific [place] (1.002-1.030) Urine Protein (NEGATIVE) mg/dL Urine Glucose (UA) (NEGATIVE) mg/dL Urine Ketones (NEGATIVE) mg/dL Urine Occult Blood (NEGATIVE) Urine Nitrite (NEGATIVE) Urine Bilirubin (NEGATIVE) Urine Urobilinogen (NORMAL) E.U./dL Ur Leukocyte Esterase (NEGATIVE) Urine RBC (0-5) /HPF Urine WBC (0-3) /HPF Ur Squamous Epith Cells (<= Few) Urine Bacteria (None Seen) /HPF Urine Casts /LPF Urine Mucus Urine Sperm Urine Culture Comments Nasal Adenovirus (PCR) Nasal B. parapertussis DNA (PCR) Nasal Coronavir 229E PCR Nasal Coronavir HKU1 PCR Nasal Coronavir NL63 PCR Nasal Coronavir OC43 PCR Nasal Enterovir/Rhinovir PCR Nasal Influenza B PCR Nasal Influenza A PCR Nasal Parainfluen 1 PCR Nasal Parainfluen 2 PCR Nasal Parainfluen 3 PCR Nasal Parainfluen 4 PCR Nasal RSV (PCR) Nasal B.pertussis DNA PCR Nasal C.pneumoniae (PCR) [place] Human Metapneumo PCR Nasal M.pneumoniae (PCR) Nasal SARS-CoV-2 (PCR) Ethyl Alcohol mg/dL 12/06/21 12/06/21 12/06/21 Range/Units 23:06 19:30 14:35 WBC (4.8-10.8) x10^3/uL RBC (4.70-6.10) 10^6/uL Hgb (14.0-18.0) g/dL Hct (42.0-52.0) % MCV (80.0-94.0) fL MCH (27.0-31.0) pg MCHC (32.0-36.0) g/dL RDW (12.0-15.0) % Plt Count (130-450) 10^3/uL MPV (7.4-11.4) fL Neut # (Auto) (1.5-6.6) 10^3/uL Lymph # (Auto) (1.5-3.5) 10^3/uL [place] # (Auto) (0.0-1.0) 10^3/uL Eos # (Auto) (0.0-0.7) 10^3/uL Baso # (Auto) (0.0-0.1) 10^3/uL Absolute Nucleated RBC x10^3/uL Nucleated RBC % /100WBC PT 37.1 H (9.9-12.6) secs INR 3.3 H (0.8-1.2) Sodium (135-145) mmol/L Potassium (3.5-5.0) mmol/L Chloride (101-111) mmol/L Carbon Dioxide (21-32) mmol/L Anion Gap (6-13) BUN (6-20) mg/dL Creatinine (0.6-1.2) mg/dL Estimated GFR (MDRD) (>89) Glucose (70-100) mg/dL Calcium (8.5-10.3) mg/dL Total Bilirubin (0.2-1.0) mg/dL AST (10-42) IU/L ALT (10-60) IU/L Alkaline Phosphatase (42-121) IU/L Lipase (22-51) U/L Urine Color YELLOW Urine Clarity HAZY (CLEAR) Urine pH 5.5 (5.0-7.5) PH Ur Specific [place] >=1.030 H (1.002-1.030) Urine Protein 30 H (NEGATIVE) mg/dL Urine Glucose (UA) NEGATIVE (NEGATIVE) mg/dL Urine Ketones NEGATIVE (NEGATIVE) mg/dL Urine Occult Blood SMALL H (NEGATIVE) Urine Nitrite NEGATIVE (NEGATIVE) Urine Bilirubin NEGATIVE (NEGATIVE) Urine Urobilinogen 0.2 (NORMAL) (NORMAL) E.U./dL Ur Leukocyte Esterase NEGATIVE (NEGATIVE) Urine RBC 6-10 H (0-5) /HPF Urine WBC 0-3 (0-3) /HPF Ur Squamous Epith Cells RARE Squamous (<= Few) Urine Bacteria Rare (None Seen) /HPF Urine Casts 3-5 Hyaline Casts /LPF Urine Mucus Few Strands Urine Sperm PRESENT Urine Culture Comments NOT INDICATED Nasal Adenovirus (PCR) NOT DETECTED Nasal B. parapertussis DNA (PCR) NOT DETECTED Nasal Coronavir 229E PCR NOT DETECTED Nasal Coronavir HKU1 PCR NOT DETECTED Nasal Coronavir NL63 PCR NOT DETECTED Nasal Coronavir OC43 PCR NOT DETECTED Nasal Enterovir/Rhinovir PCR NOT DETECTED Nasal Influenza B PCR NOT DETECTED Nasal Influenza A PCR NOT DETECTED Nasal Parainfluen 1 PCR NOT DETECTED Nasal Parainfluen 2 PCR NOT DETECTED Nasal Parainfluen 3 PCR NOT DETECTED Nasal Parainfluen 4 PCR NOT DETECTED Nasal RSV (PCR) NOT DETECTED Nasal B.pertussis DNA PCR NOT DETECTED Nasal C.pneumoniae (PCR) NOT DETECTED [place] Human Metapneumo PCR NOT DETECTED Nasal M.pneumoniae (PCR) NOT DETECTED Nasal SARS-CoV-2 (PCR) NOT DETECTED Ethyl Alcohol mg/dL 12/06/21 12/06/21 12/06/21 Range/Units 11:47 11:47 11:47 WBC (4.8-10.8) x10^3/uL RBC (4.70-6.10) 10^6/uL Hgb (14.0-18.0) g/dL Hct (42.0-52.0) % MCV (80.0-94.0) fL MCH (27.0-31.0) pg MCHC (32.0-36.0) g/dL RDW (12.0-15.0) % Plt Count (130-450) 10^3/uL MPV (7.4-11.4) fL Neut # (Auto) (1.5-6.6) 10^3/uL Lymph # (Auto) (1.5-3.5) 10^3/uL [place] # (Auto) (0.0-1.0) 10^3/uL Eos # (Auto) (0.0-0.7) 10^3/uL Baso # (Auto) (0.0-0.1) 10^3/uL Absolute Nucleated RBC x10^3/uL Nucleated RBC % /100WBC PT 56.9 H (9.9-12.6) secs INR 5.0 H* (0.8-1.2) Sodium 132 L (135-145) mmol/L Potassium 3.9 (3.5-5.0) mmol/L Chloride 96 L (101-111) mmol/L Carbon Dioxide 26 (21-32) mmol/L Anion Gap 10.0 (6-13) BUN 30 H (6-20) mg/dL Creatinine 1.0 (0.6-1.2) mg/dL Estimated GFR (MDRD) 76 L (>89) Glucose 169 H (70-100) mg/dL Calcium 9.4 (8.5-10.3) mg/dL Total Bilirubin 0.5 (0.2-1.0) mg/dL AST 14 (10-42) IU/L ALT 13 (10-60) IU/L Alkaline Phosphatase 141 H (42-121) IU/L Lipase 23 (22-51) U/L Urine Color Urine Clarity (CLEAR) Urine pH (5.0-7.5) PH Ur Specific [place] (1.002-1.030) Urine Protein (NEGATIVE) mg/dL Urine Glucose (UA) (NEGATIVE) mg/dL Urine Ketones (NEGATIVE) mg/dL Urine Occult Blood (NEGATIVE) Urine Nitrite (NEGATIVE) Urine Bilirubin (NEGATIVE) Urine Urobilinogen (NORMAL) E.U./dL Ur Leukocyte Esterase (NEGATIVE) Urine RBC (0-5) /HPF Urine WBC (0-3) /HPF Ur Squamous Epith Cells (<= Few) Urine Bacteria (None Seen) /HPF Urine Casts /LPF Urine Mucus Urine Sperm Urine Culture Comments Nasal Adenovirus (PCR) Nasal B. parapertussis DNA (PCR) Nasal Coronavir 229E PCR Nasal Coronavir HKU1 PCR Nasal Coronavir NL63 PCR Nasal Coronavir OC43 PCR Nasal Enterovir/Rhinovir PCR Nasal Influenza B PCR Nasal Influenza A PCR Nasal Parainfluen 1 PCR Nasal Parainfluen 2 PCR Nasal Parainfluen 3 PCR Nasal Parainfluen 4 PCR Nasal RSV (PCR) Nasal B.pertussis DNA PCR Nasal C.pneumoniae (PCR) [place] Human Metapneumo PCR Nasal M.pneumoniae (PCR) Nasal SARS-CoV-2 (PCR) Ethyl Alcohol < 5.0 mg/dL 12/06/21 Range/Units 11:47 WBC 13.5 H (4.8-10.8) x10^3/uL RBC 4.04 L (4.70-6.10) 10^6/uL Hgb 12.8 L (14.0-18.0) g/dL Hct 38.0 L (42.0-52.0) % MCV 94.1 H (80.0-94.0) fL MCH 31.7 H (27.0-31.0) pg MCHC 33.7 (32.0-36.0) g/dL RDW 13.3 (12.0-15.0) % Plt Count 344 (130-450) 10^3/uL MPV 8.6 (7.4-11.4) fL Neut # (Auto) 10.6 H (1.5-6.6) 10^3/uL Lymph # (Auto) 1.5 (1.5-3.5) 10^3/uL [place] # (Auto) 1.4 H (0.0-1.0) 10^3/uL Eos # (Auto) 0.0 (0.0-0.7) 10^3/uL Baso # (Auto) 0.0 (0.0-0.1) 10^3/uL Absolute Nucleated RBC 0.00 x10^3/uL Nucleated RBC % 0.0 /100WBC PT (9.9-12.6) secs INR (0.8-1.2) Sodium (135-145) mmol/L Potassium (3.5-5.0) mmol/L Chloride (101-111) mmol/L Carbon Dioxide (21-32) mmol/L Anion Gap (6-13) BUN (6-20) mg/dL Creatinine (0.6-1.2) mg/dL Estimated GFR (MDRD) (>89) Glucose (70-100) mg/dL Calcium (8.5-10.3) mg/dL Total Bilirubin (0.2-1.0) mg/dL AST (10-42) IU/L ALT (10-60) IU/L Alkaline Phosphatase (42-121) IU/L Lipase (22-51) U/L Urine Color Urine Clarity (CLEAR) Urine pH (5.0-7.5) PH Ur Specific [place] (1.002-1.030) Urine Protein (NEGATIVE) mg/dL Urine Glucose (UA) (NEGATIVE) mg/dL Urine Ketones (NEGATIVE) mg/dL Urine Occult Blood (NEGATIVE) Urine Nitrite (NEGATIVE) Urine Bilirubin (NEGATIVE) Urine Urobilinogen (NORMAL) E.U./dL Ur Leukocyte Esterase (NEGATIVE) Urine RBC (0-5) /HPF Urine WBC (0-3) /HPF Ur Squamous Epith Cells (<= Few) Urine Bacteria (None Seen) /HPF Urine Casts /LPF Urine Mucus Urine Sperm Urine Culture Comments Nasal Adenovirus (PCR) Nasal B. parapertussis DNA (PCR) Nasal Coronavir 229E PCR Nasal Coronavir HKU1 PCR Nasal Coronavir NL63 PCR Nasal Coronavir OC43 PCR Nasal Enterovir/Rhinovir PCR Nasal Influenza B PCR Nasal Influenza A PCR Nasal Parainfluen 1 PCR Nasal Parainfluen 2 PCR Nasal Parainfluen 3 PCR Nasal Parainfluen 4 PCR Nasal RSV (PCR) Nasal B.pertussis DNA PCR Nasal C.pneumoniae (PCR) [place] Human Metapneumo PCR Nasal M.pneumoniae (PCR) Nasal SARS-CoV-2 (PCR) Ethyl Alcohol mg/dL Assessment/Plan - Problem List (1) Pathologic fracture of femoral neck Impression: Conclusion/Plan: This fracture had intended to be fixed surgically tomorrow with Dr. West however after extensive discussion and review of history and imaging, this patient qualifies for a more extensive work up. This fracture would likely heal very poorly after repair due to underlying pathology. Currently managing supportively with pain relief and awaiting transfer. Discussed the plan for transfer with the patient and he understands. (2) Frequent fractures of bone Conclusion/Plan: Discussed case with orthopedic surgeon and there is concern for underlying pathology. Have considered etiologies such as Paget's disease of the bone, multiple myeloma, osteogenesis imperfecta, or neoplastic process but his history does not match so far with our differential. CT of the pelvis and lower extremities were repeated yesterday and confirm the presence of multiple pathologic fractures as well as diffuse lucency of the left pelvis and femur. His frequent fractures have severely disabled the patient from doing the things he loves and have contributed to his current suicidal ideation. Awaiting call from transfer center to send patient to orthopedic oncologist or [facility]. (3) Supratherapeutic INR Conclusion/Plan: Patient presented with a supratherapeutic INR of 5 on admission. After Vit K orally, INR is now 1.8 today which is acceptable if patient is to undergo surgery elsewhere today. Will continue to monitor INR frequently. (4) Suicidal ideation Conclusion/Plan: Today he endorses that he has struggled with suicidal ideation that has been increased due to his inability to golf and do the things he loves. He has thought of a specific plan to shoot himself and he does have the means at his home. He states that he has never unlocked the gun cabinet and would not go through with it because "it would kill his mother" and he couldn't do that to her. He is currently taking Fluoxetine 10 mg from his PCP and had discussed increasing his dose to 20 mg recently. We will continue to monitor him and connect him with any resources we can. (5) Elevated WBC count Conclusion/Plan: Patient WBC levels have stabilized this morning at 9.4. Chest xray and urinalysis were unremarkable for infectious cause. (6) BPH w urinary obs/LUTS Conclusion/Plan: Patient reports waking 4-5 times nightly to urinate with a weak stream. Recommend f/u with his PCP for further management. (7) Chronic pulmonary embolism Conclusion/Plan: Patient has a hx of developing PE in the past. He is on terminal worker anticoagulation that was previously managed by his PCP.
[2021-12-07] MEDS: TAMSULOSIN 0.4 MG CAPSULE PO SCH (09:49)
[2021-12-07] MEDS: polyethylene glycoL 3350 17 GM PACKET PO SCH ×2 (09:50→12:18)
[2021-12-07] MEDS: ACETAMINOPHEN 325 MG TABLET PO PRN ×3 (11:07→21:13)
[2021-12-07] MEDS: oxyCODONE 5 MG TABLET PO PRN ×3 (11:07→21:13)
[2021-12-07] MEDS: CHOLECALCIFEROL 25 MCG TABLET PO SCH (12:15)
[2021-12-07] MEDS: CALCIUM CARBONATE CHEW 500 MG TABLET PO SCH ×2 (12:16→21:12)
--- NOTE | 2021-12-07 12:39 | PHARMACY PROGRESS NOTE ---
- Best Possible Medication History Admit Date and Time: 12/06/21 1506 Processed by: Pharmacy Medication History completed: Yes Patient Interview: Completed Secondary Source(s): Pharmacy records, Insurance records As the person ultimately responsible for medication therapy, providers are able to order a medication from an existing home medication list in [facility] via the "Reconcile Routine" prior to Confirmation of that medication by product support representative. Such practice is discouraged except when the physician, in their clinical judgment, deems that a medical need exists for a medication without regard to previous use.
[2021-12-07] MEDS: SODIUM CHLORIDE FLUSH 0.9% 10 ML SYRINGE IVP PRN (13:13)
[2021-12-07] MEDS: SENNA 8.6 MG TABLET PO SCH (13:18)
[2021-12-07] MEDS: DOCUSATE SODIUM 250 MG CAPSULE PO SCH (13:18)
[2021-12-07] MEDS: FLUoxetine 10 MG CAPSULE PO SCH (21:13)
[2021-12-08] MEDS ORDERED: oxyCODONE 5 MG TABLET PO PRN (00:25)
[2021-12-08] MEDS ORDERED: WARFARIN SODIUM 2 MG PO SCH (00:30)
[2021-12-08] MEDS: HYDROmorphone 1 MG/ML CARPUJECT IVP PRN ×3 (01:26→05:36)
[2021-12-08] MEDS: SODIUM CHLORIDE FLUSH 0.9% 10 ML SYRINGE IVP SCH ×4 (01:26→08:57)
[2021-12-08 05:36] LABS: BASOPHILS # (AUTO) 0.1 10^3/uL (0.0-0.1); BASOPHILS % (AUTO) 0.6 %; EOSINOPHILS # (AUTO) 0.3 10^3/uL (0.0-0.7); HCT - HEMATOCRIT 29.7 % (42.0-52.0); HGB - HEMOGLOBIN 9.8 g/dL (14.0-18.0); LYMPHOCYTES # (AUTO) 1.4 10^3/uL (1.5-3.5); MEAN CORPUSCULAR HEMOGLOBIN 31.3 pg (27.0-31.0); MEAN CORPUSCULAR VOLUME 94.9 fL (80.0-94.0); MEAN PLATELET VOLUME 8.5 fL (7.4-11.4); MONOCYTES # (AUTO) 0.9 10^3/uL (0.0-1.0); MONOCYTES % (AUTO) 9.4 %; NEUTROPHILS # (AUTO) 7.1 10^3/uL (1.5-6.6); NEUTROPHILS % (AUTO) 72.7 %; PLT - PLATELET COUNT 337 10^3/uL (130-450); RED BLOOD COUNT 3.13 10^6/uL (4.70-6.10); RED CELL DISTRIBUTION WIDTH 13.1 % (12.0-15.0); WHITE BLOOD COUNT 9.8 x10^3/uL (4.8-10.8)
[2021-12-08 05:43] LABS: INR 1.2 (0.8-1.2); PT - PROTHROMBIN TIME 13.9 secs (9.9-12.6)
[2021-12-08 05:45] LABS: CALCIUM 7.8 mg/dL (8.5-10.3); CREATININE 0.8 mg/dL (0.6-1.2); POTASSIUM 4.3 mmol/L (3.5-5.0)
[2021-12-08] MEDS: oxyCODONE 5 MG TABLET PO PRN ×2 (05:57→15:03)
--- NOTE | 2021-12-08 08:10 | PROVIDER PROGRESS NOTE ---
Assessment/Plan - Problem List (1) Pathologic fracture of femoral neck Assessment/Plan: CT of the chest and abdomen with contrast pending. MRI of the pelvis and femur with contrast pending. PSA, CEA, CA125 pending. The patient was presented to the orthopedic surgeon Dr. Browne at [facility] on 12/07/21. Given that she was sports medicine orthopedic surgeon she recommended talking to oncologic orthopedic surgery. After discussion with them they recommended medicine be the primary. Dr. Sherrie Bruce with the medicine service was contacted who did not want to admit the patient at the time but requested labs, tumor markers and imaging be done at [facility]. These have been ordered as listed above. (3) Chronic pulmonary embolism Assessment/Plan: Patient is normally on Coumadin 5 mg on Mondays and Tuesdays and 2 mg the rest of the days of the week. At presentation his Coumadin INR was 5. His Coumadin was held and he was given vitamin K 10 mg x 1. Recheck of INR was 1.8 and subsequently 1.2. Coumadin was resumed on 12/08/2021 (4) Elevated WBC count Assessment/Plan: Likely reactive due to pain from fracture. At presentation white blood cell count was 13.5. Currently it is 9.8. (5) Suicidal ideation Assessment/Plan: On fluoxetine 20 mg p.o. daily (6) BPH w urinary obs/LUTS Assessment/Plan: On tamsulosin 0.4 mg p.o. daily. (7) Anemia Assessment/Plan: Etiology: Hemodilution versus fracture/supratherapeutic INR. Hemoglobin at presentation was 12.8. 2 days later is 9.8. Will continue to monitor and transfuse if hemoglobin less than 7 - Current Meds Current Meds: Current Medications Generic Name Dose Route Start Last Admin Trade Name Freq PRN Reason Stop Dose Admin Acetaminophen 650 mg 12/06/21 15:06 12/07/21 21:13 Acetaminophen 325 Mg Tablet PO 650 mg Q4HR PRN Administration Pain 1 to 4 Calcium Carbonate/Glycine 500 mg 12/07/21 12:00 12/07/21 21:12 Calcium Carbonate Chew 500 Mg Tablet PO 500 mg BID PETEY Administration Cholecalciferol 50 mcg 12/07/21 12:00 12/07/21 12:15 Cholecalciferol 25 Mcg Tablet PO 50 mcg DAILY PETEY Administration Docusate Sodium 250 - 500 mg 12/07/21 13:00 12/07/21 13:18 Docusate Sodium 250 Mg Capsule PO 250 mg DAILY PETEY Administration Fluoxetine HCl 20 mg 12/06/21 21:00 12/07/21 21:13 Fluoxetine 10 Mg Capsule PO 20 mg QPM PETEY Administration Hydromorphone HCl 1 mg 12/08/21 01:21 12/08/21 05:36 Hydromorphone 1 Mg/Ml Carpuject IVP 1 mg Q2HR PRN Administration PAIN Oxycodone HCl 5 mg 12/06/21 15:06 12/08/21 05:57 Oxycodone 5 Mg Tablet PO 5 mg Q4HR PRN Administration Pain 5 to 7 Polyethylene Glycol 17 gm 12/07/21 09:00 12/07/21 12:18 Polyethylene Glycol 3350 17 Gm Packet PO 17 gm DAILY PETEY Administration Senna 8.6 - 17.2 mg 12/07/21 13:00 12/07/21 13:18 Senna 8.6 Mg Tablet PO 8.6 mg DAILY PETEY Administration Sodium Chloride 10 ml 12/06/21 15:06 12/07/21 13:13 Sodium Chloride Flush 0.9% 10 Ml Syringe IVP 10 ml PRN PRN Administration NEEDED PER PROVIDER ORDERS Sodium Chloride 10 ml 12/06/21 17:00 12/08/21 05:36 Sodium Chloride Flush 0.9% 10 Ml Syringe IVP 10 ml 0100,0900,1700 PETEY Administration Tamsulosin HCl 0.4 mg 12/06/21 21:00 12/07/21 09:49 Tamsulosin 0.4 Mg Capsule PO 0.4 mg DAILY PETEY Administration - Lab Result Fish Bone Diagrams: 12/08/21 05:19 12/08/21 05:19 Subjective - Subjective Patient Reports: Other (Resting in bed at time of exam. Appears uncomfortable. Reported pain 8 out of 10.) Objective Vital Signs: Vital Signs - 24 hr 12/07/21 12/08/21 12/08/21 16:00 00:00 08:08 Temperature 36.8 C 37.0 C 36.7 C Heart Rate [ 84 87 86 Brachial] Respiratory 14 18 16 Rate Blood Pressure 115/56 L 120/56 L 116/51 L [Right Brachial artery] O2 Saturation 97 98 96 Oxygen O2 Source Room air I&O (Last 24 Hrs): Intake and Output Totals x24h 12/06/21 12/07/21 12/08/21 23:59 23:59 23:59 Intake Total 470 2578.333 Output Total 150 575 450 Balance 320 2003.333 -450 General: Alert, Oriented x3, Moderate distress, Severe distress HEENT: PERRLA, EOMI Neck: Supple, No JVD Neuro: Alert, Non Focal, Oriented Times 3 Cardiovascular: Regular rate, No murmurs Respiratory: Chest non-tender, No respiratory distress, Breath sounds nml Abdomen: Normal bowel sounds, Soft, No tenderness Extremities: No clubbing, No cyanosis, No edema Skin: No rashes, No breakdown - Results Results: Laboratory Results WBC 9.8 x10^3/uL (4.8-10.8) 12/08/21 05:19 RBC 3.13 10^6/uL (4.70-6.10) L 12/08/21 05:19 Hgb 9.8 g/dL (14.0-18.0) L 12/08/21 05:19 Hct 29.7 % (42.0-52.0) L 12/08/21 05:19 MCV 94.9 fL (80.0-94.0) H 12/08/21 05:19 MCH 31.3 pg (27.0-31.0) H 12/08/21 05:19 MCHC 33.0 g/dL (32.0-36.0) 12/08/21 05:19 RDW 13.1 % (12.0-15.0) 12/08/21 05:19 Plt Count 337 10^3/uL (130-450) 12/08/21 05:19 MPV 8.5 fL (7.4-11.4) 12/08/21 05:19 Neut # (Auto) 7.1 10^3/uL (1.5-6.6) H 12/08/21 05:19 Lymph # (Auto) 1.4 10^3/uL (1.5-3.5) L 12/08/21 05:19 [place] # (Auto) 0.9 10^3/uL (0.0-1.0) 12/08/21 05:19 Eos # (Auto) 0.3 10^3/uL (0.0-0.7) 12/08/21 05:19 Baso # (Auto) 0.1 10^3/uL (0.0-0.1) 12/08/21 05:19 Absolute Nucleated RBC 0.00 x10^3/uL 12/08/21 05:19 Nucleated RBC % 0.0 /100WBC 12/08/21 05:19 PT 13.9 secs (9.9-12.6) H 12/08/21 05:19 INR 1.2 (0.8-1.2) 12/08/21 05:19 Sodium 135 mmol/L (135-145) 12/08/21 05:19 Potassium 4.3 mmol/L (3.5-5.0) 12/08/21 05:19 Chloride 101 mmol/L (101-111) 12/08/21 05:19 Carbon Dioxide 26 mmol/L (21-32) 12/08/21 05:19 Anion Gap 8.0 (6-13) 12/08/21 05:19 BUN 17 mg/dL (6-20) 12/08/21 05:19 Creatinine 0.8 mg/dL (0.6-1.2) 12/08/21 05:19 Estimated GFR (MDRD) 98 (>89) 12/08/21 05:19 Glucose 130 mg/dL (70-100) H 12/08/21 05:19 Calcium 7.8 mg/dL (8.5-10.3) L 12/08/21 05:19 Total Bilirubin 0.5 mg/dL (0.2-1.0) 12/06/21 11:47 AST 14 IU/L (10-42) 12/06/21 11:47 ALT 13 IU/L (10-60) 12/06/21 11:47 Alkaline Phosphatase 141 IU/L (42-121) H 12/06/21 11:47 Lipase 23 U/L (22-51) 12/06/21 11:47 25-OH Vitamin D Total 44 ng/mL (30-100) 12/07/21 11:36 Urine Color YELLOW 12/06/21 19:30 Urine Clarity HAZY (CLEAR) 12/06/21 19:30 Urine pH 5.5 PH (5.0-7.5) 12/06/21 19:30 Ur Specific [place] >=1.030 (1.002-1.030) H 12/06/21 19:30 Urine Protein 30 mg/dL (NEGATIVE) H 12/06/21 19:30 Urine Glucose (UA) NEGATIVE mg/dL (NEGATIVE) 12/06/21 19:30 Urine Ketones NEGATIVE mg/dL (NEGATIVE) 12/06/21 19:30 Urine Occult Blood SMALL (NEGATIVE) H 12/06/21 19:30 Urine Nitrite NEGATIVE (NEGATIVE) 12/06/21 19:30 Urine Bilirubin NEGATIVE (NEGATIVE) 12/06/21 19:30 Urine Urobilinogen 0.2 (NORMAL) E.U./dL (NORMAL) 12/06/21 19:30 Ur Leukocyte Esterase NEGATIVE (NEGATIVE) 12/06/21 19:30 Urine RBC 6-10 /HPF (0-5) H 12/06/21 19:30 Urine WBC 0-3 /HPF (0-3) 12/06/21 19:30 Ur Squamous Epith Cells RARE Squamous (<= Few) 12/06/21 19:30 Urine Bacteria Rare /HPF (None Seen) 12/06/21 19:30 Urine Casts 3-5 Hyaline Casts /LPF 12/06/21 19:30 Urine Mucus Few Strands 12/06/21 19:30 Urine Sperm PRESENT 12/06/21 19:30 Urine Culture Comments NOT INDICATED 12/06/21 19:30 Nasal Adenovirus (PCR) NOT DETECTED 12/06/21 14:35 Nasal B. parapertussis DNA (PCR) NOT DETECTED 12/06/21 14:35 Nasal Coronavir 229E PCR NOT DETECTED 12/06/21 14:35 Nasal Coronavir HKU1 PCR NOT DETECTED 12/06/21 14:35 Nasal Coronavir NL63 PCR NOT DETECTED 12/06/21 14:35 Nasal Coronavir OC43 PCR NOT DETECTED 12/06/21 14:35 Nasal Enterovir/Rhinovir PCR NOT DETECTED 12/06/21 14:35 Nasal Influenza B PCR NOT DETECTED 12/06/21 14:35 Nasal Influenza A PCR NOT DETECTED 12/06/21 14:35 Nasal Parainfluen 1 PCR NOT DETECTED 12/06/21 14:35 Nasal Parainfluen 2 PCR NOT DETECTED 12/06/21 14:35 Nasal Parainfluen 3 PCR NOT DETECTED 12/06/21 14:35 Nasal Parainfluen 4 PCR NOT DETECTED 12/06/21 14:35 Nasal RSV (PCR) NOT DETECTED 12/06/21 14:35 Nasal B.pertussis DNA PCR NOT DETECTED 12/06/21 14:35 Nasal C.pneumoniae (PCR) NOT DETECTED 12/06/21 14:35 [place] Human Metapneumo PCR NOT DETECTED 12/06/21 14:35 Nasal M.pneumoniae (PCR) NOT DETECTED 12/06/21 14:35 Nasal SARS-CoV-2 (PCR) NOT DETECTED 12/06/21 14:35 Ethyl Alcohol < 5.0 mg/dL 12/06/21 11:47 ABX Reporting Has patient been on IV antibiotics over the past 48 hours?: No
[2021-12-08] MEDS: polyethylene glycoL 3350 17 GM PACKET PO SCH (08:53)
[2021-12-08] MEDS: CALCIUM CARBONATE CHEW 500 MG TABLET PO SCH ×2 (08:53→21:08)
[2021-12-08] MEDS: SENNA 8.6 MG TABLET PO SCH (08:54)
[2021-12-08] MEDS: CHOLECALCIFEROL 25 MCG TABLET PO SCH (08:54)
[2021-12-08] MEDS: DOCUSATE SODIUM 250 MG CAPSULE PO SCH (08:54)
[2021-12-08] MEDS: TAMSULOSIN 0.4 MG CAPSULE PO SCH (08:55)
[2021-12-08] MEDS ORDERED: IOPAMIDOL-300 50 ML VIAL ONE (10:33)
[2021-12-08] MEDS ORDERED: iohexoL-300 100 ML VIAL ONE (10:33)
[2021-12-08] MEDS: KETOROLAC 15 MG/ML VIAL IVP PRN (11:18)
[2021-12-08] MEDS: SODIUM CHLORIDE FLUSH 0.9% 10 ML SYRINGE IVP PRN (11:19)
[2021-12-08] MEDS ORDERED: GADOBUTROL 7.5 MMOL/7.5 ML VIAL ONE (11:35)
--- NOTE | 2021-12-08 12:14 | CT Report ---
PROCEDURE: CHEST W INDICATIONS: lytic lesions on bones, CONTRAST: IV CONTRAST: Optiray 320 ml: 100 PO CONTRAST: Isovue 300 ml50 TECHNIQUE: After the administration of intravenous contrast, 1 mm axial images were acquired from the pulmonary apices through the posterior costophrenic angles. Axial 5 mm soft tissue kernel reconstructions were performed as well as 8 mm axial MIP and coronal and sagittal 5 mm reformations. For radiation dose reduction, the following was used: automated exposure control, adjustment of mA and/or kV according to patient size. COMPARISON: Correlation is made with prior pelvis and lumbar series CT examinations, 12/16/2021. Greta elation is made with prior lumbar MRI, 12/02/2021. Correlation is also made with the accompanying abdom en and pelvis CT, 12/08/2021. FINDINGS: Image quality: Excellent. Lungs and pleura: No acute air space opacities. Centrilobular emphysematous changes are seen, which are more prominent at the lung apices than at the lung bases. No areas of thickening can be seen jaqueline g the oblique fissures on each side, which are considered to be benign. No suspicious pulmonary nodul es are seen. No pleural effusions or pneumothorax. Central and peripheral airways are patent and nor mal in caliber. Mediastinum: Heart size is normal. No pericardial effusion. No mediastinal or hilar adenopathy by size criteria. Thoracic aorta and central pulmonary arteries are normal in size. Esophagus is wolf l in caliber. No hiatal hernia. Bones and chest wall: No suspicious bony lesions. Prior T7 and T8 compression deformity are seen, w ith particular plasty cement. No acute appearing vertebral body compression fractures. No axillary o r supraclavicular adenopathy by size criteria. The thyroid is normal in size and there are no incide ntal findings.. Abdomen: Areas of dense calcification of the pancreas can be seen. Visualized upper abdominal solid o rgans otherwise appear normal. Upper abdominal bowel loops are normal in caliber. IMPRESSION: No suspicious pulmonary nodules are seen. No richi findings of metastatic disease can be seen within the chest. Calcification can be seen of the pancreas, which is attributed to chronic pancreatitis. Incidental note is made of: Prior T7 and T8 compression deformities, with vertebroplasty cement. Reviewed by: Pino Coe MD on 12/08/2021 11:13 AM [facility] Approved by: Pino Coe MD on 12/08/2021 11:13 AM [facility] Station ID: [id number]
[2021-12-08] MEDS ORDERED: IOPAMIDOL-300 50 ML VIAL PO ONE (12:16)
[2021-12-08] MEDS ORDERED: iohexoL-300 100 ML VIAL IVP ONE (12:17)
--- NOTE | 2021-12-08 12:27 | CT Report ---
PROCEDURE: Abdomen/Pelvis W INDICATIONS: lytic lesions on bone CONTRAST: IV CONTRAST: Optiray 320 ml: 100 PO CONTRAST: Isovue 300 ml50 TECHNIQUE: After the administration of oral and IV contrast, 5 mm thick sections acquired from the diaphragms to the symphysis. 5 mm thick coronal and sagittal reformats were acquired. For radiation dose reducti on, the following was used: automated exposure control, adjustment of mA and/or kV according to javed ent size. COMPARISON: Correlation is made with the nursery and pelvis CT examinations, 12/06/2021. Correlation i s also made with prior pelvis and lumbar spine CT examinations, 12/02/2021. Correlation is also made wi th the accompanying chest CT, 12/08/2021. FINDINGS: Image quality: Excellent. ABDOMEN: Lung bases: Lung bases are clear. Heart size is normal. Solid organs: Liver and spleen are normal in size and enhancement. Gallbladder wall does not appear thickened. Biliary system is non dilated. Areas of dense calcification can be seen involving the pancreas. The pancreas overall is atrophic. No adrenal nodules. Kidneys demonstrate normal size and enhancement, without hydronephrosis. Peritoneum and bowel: Bowel loops demonstrate normal wall thickness and caliber. No free fluid or a ir. Nodes and vessels: No retroperitoneal or mesenteric adenopathy by size criteria. Aorta and inferior vena cava are normal in size. Atherosclerotic calcification is seen. Miscellaneous: A mild fat-containing periumbilical hernia is seen. PELVIS: Genitourinary: Bladder wall thickness is normal. Miscellaneous: No inguinal hernias are seen. Mildly enlarged left pelvic lymph nodes are seen, inclu ding a lymph node adjacent to the left external iliac artery on series 3 image 16 measuring 18 x 13 m m in greatest axial dimension. Bones: There is again seen significant lysis of the left acetabular region and the inferior aspect of the left iliac wing. Adjacent to the left iliac wing, there is a mild amount of abnormal enhancing s oft tissue seen, as on series 3 image 59. There is abnormal lysis of the left inferior pubic ramus. A likely underlying pathologic fracture with partial healing can be seen. There is a moderately displa sera impacted pathologic fracture of the intertrochanter region of the left proximal femur. An associa tiffani effusion can be seen adjacent to the fracture and the left femoral head and neck, as on series 3 image 70. IMPRESSION: History is demonstrated, there is a pathologic fracture of the left proximal femur with bony lysis seen of the left iliac wing, the left periacetabular region, and the left inferior pubic r amus. The left inferior pubic ramus demonstrates an apparent pathologic fracture with partial healing . No primary masses are seen. Mildly enlarged left pelvic sidewall adenopathy can be seen. Chronic pancreatitis. Incidental note is made of: Fat-containing periumbilical hernia Reviewed by: Pino Coe MD on 12/08/2021 11:26 AM [facility] Approved by: Pino Coe MD on 12/08/2021 11:26 AM [facility] Station ID: [id number]
[2021-12-08 13:32] LABS: CA 125 13.5 U/mL (0.0-35.0)
[2021-12-08 13:36] LABS: THYROID STIMULATING HORMONE 2.48 uIU/mL (0.34-5.60)
[2021-12-08 14:01] LABS: PSA FREE > 160.000 ng/mL (0.16-2.81)
[2021-12-08 14:02] LABS: PSA TOTAL > 1210.000 ng/mL (0.000-2.000)
[2021-12-08] MEDS: WARFARIN 1 MG TABLET PO SCH (15:03)
--- NOTE | 2021-12-08 16:02 | PROVIDER PROGRESS NOTE ---
Subjective - General Admit Date: 12/06/21 Procedure Performed: Anticipated procedure and transfer to [facility] - Other Other Information/Narrative: Patient does have pain about his hip and upper thigh. This is not improving with bedrest. His pain is well localized to the left hip and upper thigh. Objective - Patient Data Vital Signs: Vital Signs x48h Temp Pulse Resp BP Pulse Ox 12/08/21 08:08 36.7 C 86 16 116/51 L 96 Weight: Weight 12/06/21 12/07/21 12/08/21 23:59 23:59 23:59 Weight (kg) 52.5 kg 52.5 kg Intake & Output: Intake and Output Totals x24h 12/06/21 12/07/21 12/08/21 23:59 23:59 23:59 Intake Total 470 2578.333 220 Output Total 150 575 725 Balance 320 2003.333 -505 - Lab Results Lab Results: 12/08/21 05:19 12/08/21 05:19 Other Lab Results: Lab Results x24hrs 12/08/21 12/08/21 12/08/21 Range/Units 12:35 12:35 05:19 WBC (4.8-10.8) x10^3/uL RBC (4.70-6.10) 10^6/uL Hgb (14.0-18.0) g/dL Hct (42.0-52.0) % MCV (80.0-94.0) fL MCH (27.0-31.0) pg MCHC (32.0-36.0) g/dL RDW (12.0-15.0) % Plt Count (130-450) 10^3/uL MPV (7.4-11.4) fL Neut # (Auto) (1.5-6.6) 10^3/uL Lymph # (Auto) (1.5-3.5) 10^3/uL [place] # (Auto) (0.0-1.0) 10^3/uL Eos # (Auto) (0.0-0.7) 10^3/uL Baso # (Auto) (0.0-0.1) 10^3/uL Absolute Nucleated RBC x10^3/uL Nucleated RBC % /100WBC PT (9.9-12.6) secs INR (0.8-1.2) Sodium (135-145) mmol/L Potassium (3.5-5.0) mmol/L Chloride (101-111) mmol/L Carbon Dioxide (21-32) mmol/L Anion Gap (6-13) BUN (6-20) mg/dL Creatinine (0.6-1.2) mg/dL Estimated GFR (MDRD) (>89) Glucose (70-100) mg/dL Calcium (8.5-10.3) mg/dL Carcinoembryonic Ag 3.2 ng/mL CA 125 Antigen 13.5 (0.0-35.0) U/mL Prostate Specific Ag > 1210.000 H (0.000-2.000) ng/mL Free PSA > 160.000 H (0.16-2.81) ng/mL % Free PSA Calc TNP 25-OH Vitamin D Total (30-100) ng/mL TSH 2.48 (0.34-5.60) uIU/mL 12/08/21 12/08/21 12/08/21 Range/Units 05:19 05:19 05:19 WBC 9.8 (4.8-10.8) x10^3/uL RBC 3.13 L (4.70-6.10) 10^6/uL Hgb 9.8 L (14.0-18.0) g/dL Hct 29.7 L (42.0-52.0) % MCV 94.9 H (80.0-94.0) fL MCH 31.3 H (27.0-31.0) pg MCHC 33.0 (32.0-36.0) g/dL RDW 13.1 (12.0-15.0) % Plt Count 337 (130-450) 10^3/uL MPV 8.5 (7.4-11.4) fL Neut # (Auto) 7.1 H (1.5-6.6) 10^3/uL Lymph # (Auto) 1.4 L (1.5-3.5) 10^3/uL [place]ether # (Auto) 0.9 (0.0-1.0) 10^3/uL Eos # (Auto) 0.3 (0.0-0.7) 10^3/uL Baso # (Auto) 0.1 (0.0-0.1) 10^3/uL Absolute Nucleated RBC 0.00 x10^3/uL Nucleated RBC % 0.0 /100WBC PT 13.9 H (9.9-12.6) secs INR 1.2 (0.8-1.2) Sodium 135 (135-145) mmol/L Potassium 4.3 (3.5-5.0) mmol/L Chloride 101 (101-111) mmol/L Carbon Dioxide 26 (21-32) mmol/L Anion Gap 8.0 (6-13) BUN 17 (6-20) mg/dL Creatinine 0.8 (0.6-1.2) mg/dL Estimated GFR (MDRD) 98 (>89) Glucose 130 H (70-100) mg/dL Calcium 7.8 L (8.5-10.3) mg/dL Carcinoembryonic Ag ng/mL CA 125 Antigen (0.0-35.0) U/mL Prostate Specific Ag (0.000-2.000) ng/mL Free PSA (0.16-2.81) ng/mL % Free PSA Calc 25-OH Vitamin D Total (30-100) ng/mL TSH (0.34-5.60) uIU/mL 12/07/21 Range/Units 11:36 WBC (4.8-10.8) x10^3/uL RBC (4.70-6.10) 10^6/uL Hgb (14.0-18.0) g/dL Hct (42.0-52.0) % MCV (80.0-94.0) fL MCH (27.0-31.0) pg MCHC (32.0-36.0) g/dL RDW (12.0-15.0) % Plt Count (130-450) 10^3/uL MPV (7.4-11.4) fL Neut # (Auto) (1.5-6.6) 10^3/uL Lymph # (Auto) (1.5-3.5) 10^3/uL [place]ether # (Auto) (0.0-1.0) 10^3/uL Eos # (Auto) (0.0-0.7) 10^3/uL Baso # (Auto) (0.0-0.1) 10^3/uL Absolute Nucleated RBC x10^3/uL Nucleated RBC % /100WBC PT (9.9-12.6) secs INR (0.8-1.2) Sodium (135-145) mmol/L Potassium (3.5-5.0) mmol/L Chloride (101-111) mmol/L Carbon Dioxide (21-32) mmol/L Anion Gap (6-13) BUN (6-20) mg/dL Creatinine (0.6-1.2) mg/dL Estimated GFR (MDRD) (>89) Glucose (70-100) mg/dL Calcium (8.5-10.3) mg/dL Carcinoembryonic Ag ng/mL CA 125 Antigen (0.0-35.0) U/mL Prostate Specific Ag (0.000-2.000) ng/mL Free PSA (0.16-2.81) ng/mL % Free PSA Calc 25-OH Vitamin D Total 44 (30-100) ng/mL TSH (0.34-5.60) uIU/mL - Current Medications Current Medications: Current Medications Generic Name Dose Route Start Last Admin Trade Name Freq PRN Reason Stop Dose Admin Acetaminophen 650 mg 12/06/21 15:06 12/07/21 21:13 Acetaminophen 325 Mg Tablet PO 650 mg Q4HR PRN Administration Pain 1 to 4 Calcium Carbonate/Glycine 500 mg 12/07/21 12:00 12/08/21 08:53 Calcium Carbonate Chew 500 Mg Tablet PO 500 mg BID PETEY Administration Cholecalciferol 50 mcg 12/07/21 12:00 12/08/21 08:54 Cholecalciferol 25 Mcg Tablet PO 50 mcg DAILY PETEY Administration Docusate Sodium 250 - 500 mg 12/07/21 13:00 12/08/21 08:54 Docusate Sodium 250 Mg Capsule PO 250 mg DAILY PETEY Administration Fluoxetine HCl 20 mg 12/06/21 21:00 12/07/21 21:13 Fluoxetine 10 Mg Capsule PO 20 mg QPM PETEY Administration Ketorolac Tromethamine 15 mg 12/08/21 10:28 12/08/21 11:18 Ketorolac 15 Mg/Ml Vial IVP 12/13/21 10:27 15 mg Q6HR PRN Administration PAIN Oxycodone HCl 5 mg 12/06/21 15:06 12/08/21 15:03 Oxycodone 5 Mg Tablet PO 5 mg Q4HR PRN Administration Pain 5 to 7 Polyethylene Glycol 17 gm 12/07/21 09:00 12/08/21 08:53 Polyethylene Glycol 3350 17 Gm Packet PO 17 gm DAILY PETEY Administration Senna 8.6 - 17.2 mg 12/07/21 13:00 12/08/21 08:54 Senna 8.6 Mg Tablet PO 8.6 mg DAILY PETEY Administration Sodium Chloride 10 ml 12/06/21 15:06 12/08/21 11:19 Sodium Chloride Flush 0.9% 10 Ml Syringe IVP 10 ml PRN PRN Administration NEEDED PER PROVIDER ORDERS Sodium Chloride 10 ml 12/06/21 17:00 12/08/21 08:57 Sodium Chloride Flush 0.9% 10 Ml Syringe IVP 10 ml 0100,0900,1700 PETEY Administration Tamsulosin HCl 0.4 mg 12/06/21 21:00 12/08/21 08:55 Tamsulosin 0.4 Mg Capsule PO 0.4 mg DAILY PETEY Administration Warfarin Sodium 2 mg 12/08/21 14:00 12/08/21 15:03 Warfarin 1 Mg Tablet PO 2 mg [id number] PETEY Administration - Physical Exam Comments/Other: The left leg is shortened and rotated. There is no sign of expanding hematoma about the left hip. Neurovascular is intact left leg Impression/Plan - Problem List Problem List: 1. Pathologic fracture left hip with pathologic lesions to left pelvis, proximal femur and diaphysis of the left femur This is most likely secondary to metastatic cancer but a work-up needs to be obtained as is being done. I have discussed the case with the on-call orthopedic surgeon who agreed that this most likely would be excepted by [facility]. However, medicine at [facility] has delayed his transfer probably until Tuesday. In the meantime a work-up is being performed with prostate antigen levels being high. His CT of the chest was negative. He most likely will need a hemiarthroplasty or tumor prosthesis to his left hip area. He has multiple comorbidities as has been documented.
[2021-12-08] MEDS: HYDROmorphone PCA 20MG/100ML IV PRN (16:24)
[2021-12-08] MEDS: SODIUM CHLORIDE 0.9% 500 ML IV PRN (16:26)
[2021-12-08] MEDS: FLUoxetine 10 MG CAPSULE PO SCH (21:08)
[2021-12-09] MEDS: oxyCODONE 5 MG TABLET PO PRN (04:47)
[2021-12-09] MEDS: ACETAMINOPHEN 325 MG TABLET PO PRN (04:47)
[2021-12-09 06:10] LABS: BASOPHILS % (AUTO) 0.4 %; EOSINOPHILS # (AUTO) 0.3 10^3/uL (0.0-0.7); EOSINOPHILS % (AUTO) 3.2 %; HGB - HEMOGLOBIN 9.5 g/dL (14.0-18.0); LYMPHOCYTES # (AUTO) 1.5 10^3/uL (1.5-3.5); LYMPHOCYTES % (AUTO) 15.6 %; MEAN CORPUSCULAR HEMOGLOBIN 30.7 pg (27.0-31.0); MEAN CORPUSCULAR HGB CONC 32.8 g/dL (32.0-36.0); MEAN CORPUSCULAR VOLUME 93.9 fL (80.0-94.0); MEAN PLATELET VOLUME 8.4 fL (7.4-11.4); MONOCYTES # (AUTO) 0.9 10^3/uL (0.0-1.0); MONOCYTES % (AUTO) 9.8 %; NEUTROPHILS # (AUTO) 6.8 10^3/uL (1.5-6.6); NEUTROPHILS % (AUTO) 70.7 %; PLT - PLATELET COUNT 338 10^3/uL (130-450); RED BLOOD COUNT 3.09 10^6/uL (4.70-6.10); RED CELL DISTRIBUTION WIDTH 13.1 % (12.0-15.0); WHITE BLOOD COUNT 9.6 x10^3/uL (4.8-10.8)
[2021-12-09 06:17] LABS: CALCIUM 7.6 mg/dL (8.5-10.3); CREATININE 0.8 mg/dL (0.6-1.2); POTASSIUM 4.1 mmol/L (3.5-5.0)
[2021-12-09 06:28] LABS: INR 1.1 (0.8-1.2); PT - PROTHROMBIN TIME 12.3 secs (9.9-12.6)
--- NOTE | 2021-12-09 07:42 | PROVIDER PROGRESS NOTE ---
Assessment/Plan - Problem List (1) Pathologic fracture of femoral neck Assessment/Plan: 12/09/21 Suspect pathological femoral neck fracture is due to prostate cancer. Free PSA was greater than 160 and prostate specific antigen was greater than 1210. MRI of the pelvis pending Plan to discuss with hospitalist team at [place] once result present. Patient is currently on a NURSING HOME ASSISTANT ADMINISTRATOR Dilaudid pump. 12/08/21 CT of the chest and abdomen with contrast pending. MRI of the pelvis and femur with contrast pending. PSA, CEA, CA125 pending. The patient was presented to the orthopedic surgeon Dr. Browne at [facility] on 12/07/21. Given that she was sports medicine orthopedic surgeon she recommended talking to oncologic orthopedic surgery. After discussion with them they recommended medicine be the primary. Dr. Sherrie Bruce with the medicine service was contacted who did not want to admit the patient at the time but requested labs, tumor markers and imaging be done at [facility]. These have been ordered as listed above. (3) Chronic pulmonary embolism Assessment/Plan: Patient is normally on Coumadin 5 mg on Mondays and Tuesdays and 2 mg the rest of the days of the week. At presentation his Coumadin INR was 5. His Coumadin was held and he was given vitamin K 10 mg x 1. Recheck of INR was 1.8 and subsequently 1.2. Coumadin was resumed on 12/08/2021. INR on 12/09/2021 was 1.1. (4) Elevated WBC count Assessment/Plan: Resolved (5) Suicidal ideation Assessment/Plan: Fluoxetine 20 mg p.o. daily (6) BPH w urinary obs/LUTS Assessment/Plan: On tamsulosin. (7) Anemia Assessment/Plan: Stable. Hemoglobin 9.5. We will continue to monitor. - Current Meds Current Meds: Current Medications Generic Name Dose Route Start Last Admin Trade Name Freq PRN Reason Stop Dose Admin Acetaminophen 650 mg 12/06/21 15:06 12/09/21 04:47 Acetaminophen 325 Mg Tablet PO 650 mg Q4HR PRN Administration Pain 1 to 4 Calcium Carbonate/Glycine 500 mg 12/07/21 12:00 12/08/21 21:08 Calcium Carbonate Chew 500 Mg Tablet PO 500 mg BID PETEY Administration Cholecalciferol 50 mcg 12/07/21 12:00 12/08/21 08:54 Cholecalciferol 25 Mcg Tablet PO 50 mcg DAILY PETEY Administration Docusate Sodium 250 - 500 mg 12/07/21 13:00 12/08/21 08:54 Docusate Sodium 250 Mg Capsule PO 250 mg DAILY PETEY Administration Fluoxetine HCl 20 mg 12/06/21 21:00 12/08/21 21:08 Fluoxetine 10 Mg Capsule PO 20 mg QPM PETEY Administration Hydromorphone HCl 20 mg 12/08/21 15:38 12/08/21 16:24 Hydromorphone Risk Professional 20mg/100ml IV 20 mg PRN PRN Administration PAIN >8 Protocol Sodium Chloride 500 mls @ 20 mls/hr 12/08/21 15:47 12/08/21 16:26 Normal Saline 0.9% IV 20 mls/hr Q24H PRN Administration TKO RATE Ketorolac Tromethamine 15 mg 12/08/21 10:28 12/08/21 11:18 Ketorolac 15 Mg/Ml Vial IVP 12/13/21 10:27 15 mg Q6HR PRN Administration PAIN Oxycodone HCl 5 mg 12/06/21 15:06 12/09/21 04:47 Oxycodone 5 Mg Tablet PO 5 mg Q4HR PRN Administration Pain 5 to 7 Polyethylene Glycol 17 gm 12/07/21 09:00 12/08/21 08:53 Polyethylene Glycol 3350 17 Gm Packet PO 17 gm DAILY PETEY Administration Senna 8.6 - 17.2 mg 12/07/21 13:00 12/08/21 08:54 Senna 8.6 Mg Tablet PO 8.6 mg DAILY PETEY Administration Sodium Chloride 10 ml 12/06/21 15:06 12/08/21 11:19 Sodium Chloride Flush 0.9% 10 Ml Syringe IVP 10 ml PRN PRN Administration NEEDED PER PROVIDER ORDERS Sodium Chloride 10 ml 12/06/21 17:00 12/08/21 08:57 Sodium Chloride Flush 0.9% 10 Ml Syringe IVP 10 ml 0100,0900,1700 PETEY Administration Tamsulosin HCl 0.4 mg 12/06/21 21:00 12/08/21 08:55 Tamsulosin 0.4 Mg Capsule PO 0.4 mg DAILY PETEY Administration Warfarin Sodium 2 mg 12/08/21 14:00 12/08/21 15:03 Warfarin 1 Mg Tablet PO 2 mg [id number] PETEY Administration - Lab Result Fish Bone Diagrams: 12/10/21 06:19 12/10/21 06:19 - Additional Planning My Orders: My Active Orders 12/08/21 10:28 Ketorolac Inj (15Mg) [Toradol Inj (15Mg)] 15 mg IVP Q6HR PRN 12/08/21 15:38 HYDROmorphone NURSING HOME ASSISTANT ADMINISTRATOR 20MG/100ML [Dilaudid NURSING HOME ASSISTANT ADMINISTRATOR 20Mg/100Ml] 20 mg IV PRN PRN Subjective - Subjective Patient Reports: Other (Patient's pain persist. He rated it 6 out of 10 today. Appears uncomfortable.) Objective Vital Signs: Vital Signs - 24 hr 12/08/21 12/08/21 12/08/21 08:08 16:00 17:00 Temperature 36.7 C 36.5 C Heart Rate [ 86 87 Brachial] Respiratory 16 17 16 Rate Blood Pressure 116/51 L 122/57 L [Right Brachial artery] O2 Saturation 96 100 12/08/21 12/08/21 12/08/21 18:00 19:00 20:00 Temperature Heart Rate [ Brachial] Respiratory 16 16 14 Rate Blood Pressure [Right Brachial artery] O2 Saturation 12/08/21 12/08/21 12/08/21 21:00 22:00 23:00 Temperature Heart Rate [ Brachial] Respiratory 14 14 16 Rate Blood Pressure [Right Brachial artery] O2 Saturation 12/08/21 12/09/21 12/09/21 23:52 01:00 03:00 Temperature 36.7 C Heart Rate [ 96 Brachial] Respiratory 15 14 13 Rate Blood Pressure 120/63 [Right Brachial artery] O2 Saturation 94 12/09/21 12/09/21 05:00 06:32 Temperature Heart Rate [ Brachial] Respiratory 12 13 Rate Blood Pressure [Right Brachial artery] O2 Saturation Oxygen O2 Source Room air I&O (Last 24 Hrs): Intake and Output Totals x24h 12/07/21 12/08/21 12/09/21 23:59 23:59 23:59 Intake Total 2578.333 660 200 Output Total 575 1325 150 Balance 2003.333 -061 50 Comments/Notes: General: Alert, Oriented x3, Moderate distress, Severe distress HEENT: PERRLA, EOMI Neck: Supple, No JVD Neuro: Alert, Oriented Times 3 Cardiovascular: Regular rate, No murmurs Respiratory: Chest non-tender, No respiratory distress, Breath sounds nml Abdomen: Normal bowel sounds, Soft, No tenderness Extremities: No clubbing, No cyanosis, No edema Skin: No rashes, No breakdown - Results Results: Laboratory Results WBC 9.6 x10^3/uL (4.8-10.8) 12/09/21 05:41 RBC 3.09 10^6/uL (4.70-6.10) L 12/09/21 05:41 Hgb 9.5 g/dL (14.0-18.0) L 12/09/21 05:41 Hct 29.0 % (42.0-52.0) L 12/09/21 05:41 MCV 93.9 fL (80.0-94.0) 12/09/21 05:41 MCH 30.7 pg (27.0-31.0) 12/09/21 05:41 MCHC 32.8 g/dL (32.0-36.0) 12/09/21 05:41 RDW 13.1 % (12.0-15.0) 12/09/21 05:41 Plt Count 338 10^3/uL (130-450) 12/09/21 05:41 MPV 8.4 fL (7.4-11.4) 12/09/21 05:41 Neut # (Auto) 6.8 10^3/uL (1.5-6.6) H 12/09/21 05:41 Lymph # (Auto) 1.5 10^3/uL (1.5-3.5) 12/09/21 05:41 [place] # (Auto) 0.9 10^3/uL (0.0-1.0) 12/09/21 05:41 Eos # (Auto) 0.3 10^3/uL (0.0-0.7) 12/09/21 05:41 Baso # (Auto) 0.0 10^3/uL (0.0-0.1) 12/09/21 05:41 Absolute Nucleated RBC 0.00 x10^3/uL 12/09/21 05:41 Nucleated RBC % 0.0 /100WBC 12/09/21 05:41 PT 12.3 secs (9.9-12.6) 12/09/21 05:41 INR 1.1 (0.8-1.2) 12/09/21 05:41 Sodium 135 mmol/L (135-145) 12/09/21 05:41 Potassium 4.1 mmol/L (3.5-5.0) 12/09/21 05:41 Chloride 100 mmol/L (101-111) L 12/09/21 05:41 Carbon Dioxide 27 mmol/L (21-32) 12/09/21 05:41 Anion Gap 8.0 (6-13) 12/09/21 05:41 BUN 19 mg/dL (6-20) 12/09/21 05:41 Creatinine 0.8 mg/dL (0.6-1.2) 12/09/21 05:41 Estimated GFR (MDRD) 98 (>89) 12/09/21 05:41 Glucose 157 mg/dL (70-100) H 12/09/21 05:41 Calcium 7.6 mg/dL (8.5-10.3) L 12/09/21 05:41 Total Bilirubin 0.5 mg/dL (0.2-1.0) 12/06/21 11:47 AST 14 IU/L (10-42) 12/06/21 11:47 ALT 13 IU/L (10-60) 12/06/21 11:47 Alkaline Phosphatase 141 IU/L (42-121) H 12/06/21 11:47 Lipase 23 U/L (22-51) 12/06/21 11:47 Carcinoembryonic Ag 3.2 ng/mL 12/08/21 12:35 CA 125 Antigen 13.5 U/mL (0.0-35.0) 12/08/21 05:19 Prostate Specific Ag > 1210.000 ng/mL (0.000-2.000) H 12/08/21 12:35 Free PSA > 160.000 ng/mL (0.16-2.81) H 12/08/21 12:35 % Free PSA Calc TNP 12/08/21 12:35 25-OH Vitamin D Total 44 ng/mL (30-100) 12/07/21 11:36 TSH 2.48 uIU/mL (0.34-5.60) 12/08/21 05:19 Urine Color YELLOW 12/06/21 19:30 Urine Clarity HAZY (CLEAR) 12/06/21 19:30 Urine pH 5.5 PH (5.0-7.5) 12/06/21 19:30 Ur Specific Agar >=1.030 (1.002-1.030) H 12/06/21 19:30 Urine Protein 30 mg/dL (NEGATIVE) H 12/06/21 19:30 Urine Glucose (UA) NEGATIVE mg/dL (NEGATIVE) 12/06/21 19:30 Urine Ketones NEGATIVE mg/dL (NEGATIVE) 12/06/21 19:30 Urine Occult Blood SMALL (NEGATIVE) H 12/06/21 19:30 Urine Nitrite NEGATIVE (NEGATIVE) 12/06/21 19:30 Urine Bilirubin NEGATIVE (NEGATIVE) 12/06/21 19:30 Urine Urobilinogen 0.2 (NORMAL) E.U./dL (NORMAL) 12/06/21 19:30 Ur Leukocyte Esterase NEGATIVE (NEGATIVE) 12/06/21 19:30 Urine RBC 6-10 /HPF (0-5) H 12/06/21 19:30 Urine WBC 0-3 /HPF (0-3) 12/06/21 19:30 Ur Squamous Epith Cells RARE Squamous (<= Few) 12/06/21 19:30 Urine Bacteria Rare /HPF (None Seen) 12/06/21 19:30 Urine Casts 3-5 Hyaline Casts /LPF 12/06/21 19:30 Urine Mucus Few Strands 12/06/21 19:30 Urine Sperm PRESENT 12/06/21 19:30 Urine Culture Comments NOT INDICATED 12/06/21 19:30 Nasal Adenovirus (PCR) NOT DETECTED 12/06/21 14:35 Nasal B. parapertussis DNA (PCR) NOT DETECTED 12/06/21 14:35 Nasal Coronavir 229E PCR NOT DETECTED 12/06/21 14:35 Nasal Coronavir HKU1 PCR NOT DETECTED 12/06/21 14:35 Nasal Coronavir NL63 PCR NOT DETECTED 12/06/21 14:35 Nasal Coronavir OC43 PCR NOT DETECTED 12/06/21 14:35 Nasal Enterovir/Rhinovir PCR NOT DETECTED 12/06/21 14:35 Nasal Influenza B PCR NOT DETECTED 12/06/21 14:35 Nasal Influenza A PCR NOT DETECTED 12/06/21 14:35 Nasal Parainfluen 1 PCR NOT DETECTED 12/06/21 14:35 Nasal Parainfluen 2 PCR NOT DETECTED 12/06/21 14:35 Nasal Parainfluen 3 PCR NOT DETECTED 12/06/21 14:35 Nasal Parainfluen 4 PCR NOT DETECTED 12/06/21 14:35 Nasal RSV (PCR) NOT DETECTED 12/06/21 14:35 Nasal B.pertussis DNA PCR NOT DETECTED 12/06/21 14:35 Nasal C.pneumoniae (PCR) NOT DETECTED 12/06/21 14:35 Randall Human Metapneumo PCR NOT DETECTED 12/06/21 14:35 Nasal M.pneumoniae (PCR) NOT DETECTED 12/06/21 14:35 Nasal SARS-CoV-2 (PCR) NOT DETECTED 12/06/21 14:35 Ethyl Alcohol < 5.0 mg/dL 12/06/21 11:47 ABX Reporting Has patient been on IV antibiotics over the past 48 hours?: No
[2021-12-09] MEDS: SODIUM CHLORIDE FLUSH 0.9% 10 ML SYRINGE IVP SCH ×3 (08:54→23:42)
[2021-12-09] MEDS: KETOROLAC 15 MG/ML VIAL IVP PRN (08:54)
[2021-12-09] MEDS ORDERED: KETOROLAC 15 MG/ML VIAL ONE (08:58)
[2021-12-09] MEDS: polyethylene glycoL 3350 17 GM PACKET PO SCH (10:17)
[2021-12-09] MEDS: DOCUSATE SODIUM 250 MG CAPSULE PO SCH (10:18)
[2021-12-09] MEDS: CHOLECALCIFEROL 25 MCG TABLET PO SCH (10:18)
[2021-12-09] MEDS: SENNA 8.6 MG TABLET PO SCH (10:19)
[2021-12-09] MEDS: TAMSULOSIN 0.4 MG CAPSULE PO SCH (10:19)
[2021-12-09] MEDS: CALCIUM CARBONATE CHEW 500 MG TABLET PO SCH ×2 (10:19→21:14)
[2021-12-09] MEDS: WARFARIN 1 MG TABLET PO SCH (13:34)
[2021-12-09] MEDS ORDERED: GADOBUTROL 10 MMOL/10 ML VIAL IVP ONE (13:34)
--- NOTE | 2021-12-09 14:56 | MRI Report ---
PROCEDURE: Pelvis W/WO INDICATIONS: lytic bone lesion CONTRAST: IV CONTRAST: Gadavist ml: 5.2 TECHNIQUE: Coronal ultra fast SE, sagittal breath-hold T2 FSE; axial T1 FSE with and without fat saturation thro ugh the pelvis. Optional long- and short-axis uterine nonbreath-hold T2 FSE through the uterus. Sag ittal or axial dynamic ultra fast GE during administration of contrast. Post-contrast axial or coron al ultra fast GE / 2-D spoiled GE with fat saturation from the iliac crests to the symphysis. Option al diffusion weighted imaging and ADC may be performed. COMPARISON: Reference is made to the CT pelvis dated December 08, 2021. Findings: MUSCULATURE: T2 hyperintense signal within the vastus intermedius and lateralis as well as the glutea l muscles and obturator internus, compatible with edema. Reticulated T2 hyperintense signal in the left pelvic/soft tissues, compatible with anasarca. HAMSTRING ATTACHMENTS: No significant abnormality. BONES/JOINTS: Mildly displaced, angulated fracture of the femoral neck is again seen. Abnormal signa l is seen throughout the osseous structures with varying degrees of contrast enhancement, compatible with extensive metastatic disease. Minimal angulated contour of the left ischium, compatible with sub acute fracture. A T1 hypointense/T2 hyperintense, well-circumscribed lesion is seen in the left proximal femur, also consistent with metastatic disease. Small joint effusion. PELVIC STRUCTURES: The lower pelvic intraperitoneal structures are unremarkable. Impression: 1.Redemonstrated mildly displaced, angulated fracture of the left femoral neck. 2.Left pelvic/hip anasarca. 3.Regional intramuscular edema of the left hip. 4.Subacute fracture of the left ischium. 5.Extensive left greater than right osseous metastatic disease. Reviewed by: Nakul Walsh MD on 12/09/2021 2:55 PM PST Approved by: Nakul Walsh MD on 12/09/2021 2:55 PM PST Station ID: [id number]
[2021-12-09] MEDS: HYDROmorphone PCA 20MG/100ML IV PRN (15:23)
[2021-12-09] MEDS: SODIUM CHLORIDE 0.9% 500 ML IV PRN (18:18)
[2021-12-09] MEDS: FLUoxetine 10 MG CAPSULE PO SCH (21:14)
[2021-12-10] MEDS: KETOROLAC 15 MG/ML VIAL IVP PRN ×2 (01:55→17:32)
[2021-12-10 06:39] LABS: BASOPHILS % (AUTO) 0.5 %; EOSINOPHILS # (AUTO) 0.4 10^3/uL (0.0-0.7); EOSINOPHILS % (AUTO) 4.4 %; HCT - HEMATOCRIT 30.5 % (42.0-52.0); HGB - HEMOGLOBIN 9.9 g/dL (14.0-18.0); LYMPHOCYTES # (AUTO) 1.6 10^3/uL (1.5-3.5); LYMPHOCYTES % (AUTO) 18.6 %; MEAN CORPUSCULAR HEMOGLOBIN 30.9 pg (27.0-31.0); MEAN CORPUSCULAR HGB CONC 32.5 g/dL (32.0-36.0); MEAN CORPUSCULAR VOLUME 95.3 fL (80.0-94.0); MEAN PLATELET VOLUME 8.3 fL (7.4-11.4); MONOCYTES # (AUTO) 0.7 10^3/uL (0.0-1.0); MONOCYTES % (AUTO) 8.6 %; NEUTROPHILS # (AUTO) 5.8 10^3/uL (1.5-6.6); NEUTROPHILS % (AUTO) 67.7 %; PLT - PLATELET COUNT 354 10^3/uL (130-450); RED CELL DISTRIBUTION WIDTH 12.8 % (12.0-15.0); WHITE BLOOD COUNT 8.5 x10^3/uL (4.8-10.8)
[2021-12-10 06:41] LABS: INR 1.3 (0.8-1.2); PT - PROTHROMBIN TIME 14.1 secs (9.9-12.6)
[2021-12-10 06:45] LABS: CALCIUM 7.4 mg/dL (8.5-10.3); CREATININE 0.8 mg/dL (0.6-1.2); POTASSIUM 4.3 mmol/L (3.5-5.0)
--- NOTE | 2021-12-10 07:18 | PROVIDER PROGRESS NOTE ---
Assessment/Plan - Problem List (1) Pathologic fracture of femoral neck Assessment/Plan: 12/10/21 Continue pain management with Dilaudid via Dilaudid BOWL TOPPER pump and Toradol. I called out to [facility] [place] again today about transferring the patient to their facility. Awaiting a callback. 12/09/21 Suspect pathological femoral neck fracture is due to prostate cancer. Free PSA was greater than 160 and prostate specific antigen was greater than 1210. MRI of the pelvis pending Plan to discuss with hospitalist team at [place] once result present. Patient is currently on a BOWL TOPPER Dilaudid pump. 12/08/21 CT of the chest and abdomen with contrast pending. MRI of the pelvis and femur with contrast pending. PSA, CEA, CA125 pending. The patient was presented to the orthopedic surgeon Dr. Browne at [facility] on 12/07/21. Given that she was sports medicine orthopedic surgeon she recommended talking to oncologic orthopedic surgery. After discussion with them they recommended medicine be the primary. Dr. Sherrie Bruce with the medicine service was contacted who did not want to admit the patient at the time but requested labs, tumor markers and imaging be done at [facility]. These have been ordered as listed above. (3) Chronic pulmonary embolism Assessment/Plan: Patient is normally on Coumadin 5 mg on Mondays and Tuesdays and 2 mg the rest of the days of the week. At presentation his Coumadin INR was 5. His Coumadin was held and he was given vitamin K 10 mg x 1. Recheck of INR was 1.8 and subsequently 1.2. Coumadin was resumed on 12/08/2021. INR on 12/10/2021 was 1.3. (4) Elevated WBC count Assessment/Plan: Resolved (5) Suicidal ideation Assessment/Plan: Fluoxetine 20 mg p.o. daily (6) BPH w urinary obs/LUTS Assessment/Plan: On tamsulosin. (7) Anemia Assessment/Plan: Stable. Hemoglobin 9.9. We will continue to monitor. - Current Meds Current Meds: Current Medications Generic Name Dose Route Start Last Admin Trade Name Freq PRN Reason Stop Dose Admin Acetaminophen 650 mg 12/06/21 15:06 12/09/21 04:47 Acetaminophen 325 Mg Tablet PO 650 mg Q4HR PRN Administration Pain 1 to 4 Calcium Carbonate/Glycine 500 mg 12/07/21 12:00 12/09/21 21:14 Calcium Carbonate Chew 500 Mg Tablet PO 500 mg BID PETEY Administration Cholecalciferol 50 mcg 12/07/21 12:00 12/09/21 10:18 Cholecalciferol 25 Mcg Tablet PO 50 mcg DAILY PETEY Administration Docusate Sodium 250 - 500 mg 12/07/21 13:00 12/09/21 10:18 Docusate Sodium 250 Mg Capsule PO 250 mg DAILY PETEY Administration Fluoxetine HCl 20 mg 12/06/21 21:00 12/09/21 21:14 Fluoxetine 10 Mg Capsule PO 20 mg QPM PETEY Administration Hydromorphone HCl 20 mg 12/08/21 15:38 12/09/21 15:23 Hydromorphone Control Specialist 20mg/100ml IV 20 mg PRN PRN Administration PAIN >8 Protocol Sodium Chloride 500 mls @ 20 mls/hr 12/08/21 15:47 12/09/21 22:55 Normal Saline 0.9% IV 20 mls/hr Q24H PRN Infusion TKO RATE Ketorolac Tromethamine 15 mg 12/08/21 10:28 12/10/21 01:55 Ketorolac 15 Mg/Ml Vial IVP 12/13/21 10:27 15 mg Q6HR PRN Administration PAIN Oxycodone HCl 5 mg 12/06/21 15:06 12/09/21 04:47 Oxycodone 5 Mg Tablet PO 5 mg Q4HR PRN Administration Pain 5 to 7 Polyethylene Glycol 17 gm 12/07/21 09:00 12/09/21 10:17 Polyethylene Glycol 3350 17 Gm Packet PO 17 gm DAILY PETEY Administration Senna 8.6 - 17.2 mg 12/07/21 13:00 12/09/21 10:19 Senna 8.6 Mg Tablet PO 8.6 mg DAILY PETEY Administration Sodium Chloride 10 ml 12/06/21 15:06 12/08/21 11:19 Sodium Chloride Flush 0.9% 10 Ml Syringe IVP 10 ml PRN PRN Administration NEEDED PER PROVIDER ORDERS Sodium Chloride 10 ml 12/06/21 17:00 12/09/21 23:42 Sodium Chloride Flush 0.9% 10 Ml Syringe IVP Not Given 0100,0900,1700 [facility] Tamsulosin HCl 0.4 mg 12/06/21 21:00 12/09/21 10:19 Tamsulosin 0.4 Mg Capsule PO 0.4 mg DAILY [facility] Administration Warfarin Sodium 2 mg 12/08/21 14:00 12/09/21 13:34 Warfarin 1 Mg Tablet PO 2 mg [id number] [facility] Administration - Lab Result [place] Bone Diagrams: 12/10/21 06:19 12/10/21 06:19 Subjective - Subjective Patient Reports: Other (Patient's pain persist. He rated it 6-8 out of 10 today. Appears uncomfortable.) Objective Vital Signs: Vital Signs - 24 hr 12/09/21 12/09/21 12/09/21 07:56 09:00 13:00 Temperature 36.4 C L Heart Rate [ 108 H Brachial] Respiratory 16 16 16 Rate Blood Pressure 116/66 [Right Brachial artery] O2 Saturation 94 12/09/21 12/09/21 12/09/21 15:00 15:36 16:00 Temperature 36.6 C Heart Rate [ 86 Brachial] Respiratory 16 16 16 Rate Blood Pressure 115/61 [Right Brachial artery] O2 Saturation 94 12/09/21 12/09/21 12/09/21 19:00 21:17 23:00 Temperature Heart Rate [ Brachial] Respiratory 16 16 20 Rate Blood Pressure [Right Brachial artery] O2 Saturation 12/09/21 12/10/21 12/10/21 23:39 03:42 06:07 Temperature 36.8 C Heart Rate [ 92 Brachial] Respiratory 20 15 14 Rate Blood Pressure 125/62 [Right Brachial artery] O2 Saturation 93 Oxygen O2 Source Room air I&O (Last 24 Hrs): Intake and Output Totals x24h 12/08/21 12/09/21 12/10/21 23:59 23:59 23:59 Intake Total 660 1562.333 150 Output Total 1325 650 200 Balance -665 912.333 -50 Comments/Notes: General: Alert, Oriented x3, Moderate distress, Severe distress HEENT: PERRLA, EOMI Neck: Supple, No JVD Neuro: Alert, Oriented Times 3 Cardiovascular: Regular rate, No murmurs Respiratory: Chest non-tender, No respiratory distress, Breath sounds nml Abdomen: Normal bowel sounds, Soft, No tenderness Extremities: No clubbing, No cyanosis, No edema Skin: No rashes, No breakdown - Results Results: Laboratory Results WBC 8.5 x10^3/uL (4.8-10.8) 12/10/21 06:19 RBC 3.20 10^6/uL (4.70-6.10) L 12/10/21 06:19 Hgb 9.9 g/dL (14.0-18.0) L 12/10/21 06:19 Hct 30.5 % (42.0-52.0) L 12/10/21 06:19 MCV 95.3 fL (80.0-94.0) H 12/10/21 06:19 MCH 30.9 pg (27.0-31.0) 12/10/21 06:19 MCHC 32.5 g/dL (32.0-36.0) 12/10/21 06:19 RDW 12.8 % (12.0-15.0) 12/10/21 06:19 Plt Count 354 10^3/uL (130-450) 12/10/21 06:19 MPV 8.3 fL (7.4-11.4) 12/10/21 06:19 Neut # (Auto) 5.8 10^3/uL (1.5-6.6) 12/10/21 06:19 Lymph # (Auto) 1.6 10^3/uL (1.5-3.5) 12/10/21 06:19 [place] # (Auto) 0.7 10^3/uL (0.0-1.0) 12/10/21 06:19 Eos # (Auto) 0.4 10^3/uL (0.0-0.7) 12/10/21 06:19 Baso # (Auto) 0.0 10^3/uL (0.0-0.1) 12/10/21 06:19 Absolute Nucleated RBC 0.00 x10^3/uL 12/10/21 06:19 Nucleated RBC % 0.0 /100WBC 12/10/21 06:19 PT 14.1 secs (9.9-12.6) H 12/10/21 06:19 INR 1.3 (0.8-1.2) H 12/10/21 06:19 Sodium 135 mmol/L (135-145) 12/10/21 06:19 Potassium 4.3 mmol/L (3.5-5.0) 12/10/21 06:19 Chloride 99 mmol/L (101-111) L 12/10/21 06:19 Carbon Dioxide 28 mmol/L (21-32) 12/10/21 06:19 Anion Gap 8.0 (6-13) 12/10/21 06:19 BUN 22 mg/dL (6-20) H 12/10/21 06:19 Creatinine 0.8 mg/dL (0.6-1.2) 12/10/21 06:19 Estimated GFR (MDRD) 98 (>89) 12/10/21 06:19 Glucose 140 mg/dL (70-100) H 12/10/21 06:19 Calcium 7.4 mg/dL (8.5-10.3) L 12/10/21 06:19 Total Bilirubin 0.5 mg/dL (0.2-1.0) 12/06/21 11:47 AST 14 IU/L (10-42) 12/06/21 11:47 ALT 13 IU/L (10-60) 12/06/21 11:47 Alkaline Phosphatase 141 IU/L (42-121) H 12/06/21 11:47 Lipase 23 U/L (22-51) 12/06/21 11:47 Carcinoembryonic Ag 3.2 ng/mL 12/08/21 12:35 CA 125 Antigen 13.5 U/mL (0.0-35.0) 12/08/21 05:19 Prostate Specific Ag > 1210.000 ng/mL (0.000-2.000) H 12/08/21 12:35 Free PSA > 160.000 ng/mL (0.16-2.81) H 12/08/21 12:35 % Free PSA Calc TNP 12/08/21 12:35 25-OH Vitamin D Total 44 ng/mL (30-100) 12/07/21 11:36 TSH 2.48 uIU/mL (0.34-5.60) 12/08/21 05:19 Urine Color YELLOW 12/06/21 19:30 Urine Clarity HAZY (CLEAR) 12/06/21 19:30 Urine pH 5.5 PH (5.0-7.5) 12/06/21 19:30 Ur Specific [place] >=1.030 (1.002-1.030) H 12/06/21 19:30 Urine Protein 30 mg/dL (NEGATIVE) H 12/06/21 19:30 Urine Glucose (UA) NEGATIVE mg/dL (NEGATIVE) 12/06/21 19:30 Urine Ketones NEGATIVE mg/dL (NEGATIVE) 12/06/21 19:30 Urine Occult Blood SMALL (NEGATIVE) H 12/06/21 19:30 Urine Nitrite NEGATIVE (NEGATIVE) 12/06/21 19:30 Urine Bilirubin NEGATIVE (NEGATIVE) 12/06/21 19:30 Urine Urobilinogen 0.2 (NORMAL) E.U./dL (NORMAL) 12/06/21 19:30 Ur Leukocyte Esterase NEGATIVE (NEGATIVE) 12/06/21 19:30 Urine RBC 6-10 /HPF (0-5) H 12/06/21 19:30 Urine WBC 0-3 /HPF (0-3) 12/06/21 19:30 Ur Squamous Epith Cells RARE Squamous (<= Few) 12/06/21 19:30 Urine Bacteria Rare /HPF (None Seen) 12/06/21 19:30 Urine Casts 3-5 Hyaline Casts /LPF 12/06/21 19:30 Urine Mucus Few Strands 12/06/21 19:30 Urine Sperm PRESENT 12/06/21 19:30 Urine Culture Comments NOT INDICATED 12/06/21 19:30 Nasal Adenovirus (PCR) NOT DETECTED 12/06/21 14:35 Nasal B. parapertussis DNA (PCR) NOT DETECTED 12/06/21 14:35 Nasal Coronavir 229E PCR NOT DETECTED 12/06/21 14:35 Nasal Coronavir HKU1 PCR NOT DETECTED 12/06/21 14:35 Nasal Coronavir NL63 PCR NOT DETECTED 12/06/21 14:35 Nasal Coronavir OC43 PCR NOT DETECTED 12/06/21 14:35 Nasal Enterovir/Rhinovir PCR NOT DETECTED 12/06/21 14:35 Nasal Influenza B PCR NOT DETECTED 12/06/21 14:35 Nasal Influenza A PCR NOT DETECTED 12/06/21 14:35 Nasal Parainfluen 1 PCR NOT DETECTED 12/06/21 14:35 Nasal Parainfluen 2 PCR NOT DETECTED 12/06/21 14:35 Nasal Parainfluen 3 PCR NOT DETECTED 12/06/21 14:35 Nasal Parainfluen 4 PCR NOT DETECTED 12/06/21 14:35 Nasal RSV (PCR) NOT DETECTED 12/06/21 14:35 Nasal B.pertussis DNA PCR NOT DETECTED 12/06/21 14:35 Nasal C.pneumoniae (PCR) NOT DETECTED 12/06/21 14:35 [place] Human Metapneumo PCR NOT DETECTED 12/06/21 14:35 Nasal M.pneumoniae (PCR) NOT DETECTED 12/06/21 14:35 Nasal SARS-CoV-2 (PCR) NOT DETECTED 12/06/21 14:35 Ethyl Alcohol < 5.0 mg/dL 12/06/21 11:47 ABX Reporting Has patient been on IV antibiotics over the past 48 hours?: No
[2021-12-10] MEDS: polyethylene glycoL 3350 17 GM PACKET PO SCH (08:25)
[2021-12-10] MEDS: CALCIUM CARBONATE CHEW 500 MG TABLET PO SCH ×2 (08:25→20:04)
[2021-12-10] MEDS: CHOLECALCIFEROL 25 MCG TABLET PO SCH (08:25)
[2021-12-10] MEDS: DOCUSATE SODIUM 250 MG CAPSULE PO SCH (08:26)
[2021-12-10] MEDS: TAMSULOSIN 0.4 MG CAPSULE PO SCH (08:27)
[2021-12-10] MEDS: SENNA 8.6 MG TABLET PO SCH (08:27)
[2021-12-10] MEDS: SODIUM CHLORIDE FLUSH 0.9% 10 ML SYRINGE IVP SCH ×2 (12:27→15:54)
[2021-12-10] MEDS: HYDROmorphone PCA 20MG/100ML IV PRN (12:55)
[2021-12-10] MEDS ORDERED: WARFARIN 5 MG TABLET PO SCH (14:00)
[2021-12-10] MEDS: SODIUM CHLORIDE FLUSH 0.9% 10 ML SYRINGE IVP PRN (17:32)
[2021-12-10] MEDS: SODIUM CHLORIDE 0.9% 500 ML IV PRN (18:05)
[2021-12-10] MEDS ORDERED: LACTULOSE 10 GM /15 ML UDC PO ONE (19:29)
[2021-12-10] MEDS: FLUoxetine 10 MG CAPSULE PO SCH (20:04)
[2021-12-11] MEDS: SODIUM CHLORIDE FLUSH 0.9% 10 ML SYRINGE IVP SCH ×3 (00:54→14:57)
[2021-12-11] MEDS: KETOROLAC 15 MG/ML VIAL IVP PRN (01:03)
[2021-12-11 09:21] LABS: BASOPHILS % (AUTO) 0.5 %; EOSINOPHILS # (AUTO) 0.3 10^3/uL (0.0-0.7); HCT - HEMATOCRIT 29.7 % (42.0-52.0); HGB - HEMOGLOBIN 9.9 g/dL (14.0-18.0); LYMPHOCYTES # (AUTO) 1.2 10^3/uL (1.5-3.5); LYMPHOCYTES % (AUTO) 14.4 %; MEAN CORPUSCULAR HEMOGLOBIN 31.3 pg (27.0-31.0); MEAN CORPUSCULAR HGB CONC 33.3 g/dL (32.0-36.0); MEAN PLATELET VOLUME 8.4 fL (7.4-11.4); MONOCYTES # (AUTO) 0.7 10^3/uL (0.0-1.0); MONOCYTES % (AUTO) 8.4 %; NEUTROPHILS # (AUTO) 6.2 10^3/uL (1.5-6.6); NEUTROPHILS % (AUTO) 73.3 %; PLT - PLATELET COUNT 364 10^3/uL (130-450); RED BLOOD COUNT 3.16 10^6/uL (4.70-6.10); RED CELL DISTRIBUTION WIDTH 12.7 % (12.0-15.0); WHITE BLOOD COUNT 8.5 x10^3/uL (4.8-10.8)
[2021-12-11 09:35] LABS: CALCIUM 7.5 mg/dL (8.5-10.3); CREATININE 0.7 mg/dL (0.6-1.2); POTASSIUM 4.1 mmol/L (3.5-5.0)
[2021-12-11] MEDS: CALCIUM CARBONATE CHEW 500 MG TABLET PO SCH ×2 (10:52→20:17)
[2021-12-11] MEDS: CHOLECALCIFEROL 25 MCG TABLET PO SCH (10:53)
[2021-12-11] MEDS: DOCUSATE SODIUM 250 MG CAPSULE PO SCH (10:56)
[2021-12-11] MEDS: SENNA 8.6 MG TABLET PO SCH (10:57)
[2021-12-11] MEDS: polyethylene glycoL 3350 17 GM PACKET PO SCH (10:58)
[2021-12-11] MEDS: HYDROmorphone PCA 20MG/100ML IV PRN (11:06)
[2021-12-11] MEDS: TAMSULOSIN 0.4 MG CAPSULE PO SCH (11:21)
--- NOTE | 2021-12-11 11:50 | PROVIDER PROGRESS NOTE ---
Assessment/Plan - Problem List (1) Pathologic fracture of femoral neck Assessment/Plan: 12/11/21 Dr. Bond with orthopedics surgery at [facility] agreed to see the patient in consult upon arrival at the facility. He plans to potentially do surgery on 12/14/2021 Awaiting a call from the hospitalist team to discuss the patient for acceptance to their service as primary. The call has been limited to date by bed availability. In the meantime we will continue managing patient's pain on Dilaudid pump. 12/09/21 Suspect pathological femoral neck fracture is due to prostate cancer. Free PSA was greater than 160 and prostate specific antigen was greater than 1210. MRI of the pelvis pending Plan to discuss with hospitalist team at [place] once result present. Patient is currently on a IT HELP DESK MANAGER Dilaudid pump. 12/08/21 CT of the chest and abdomen with contrast pending. MRI of the pelvis and femur with contrast pending. PSA, CEA, CA125 pending. The patient was presented to the orthopedic surgeon Dr. Browne at [facility] on 12/07/21. Given that she was sports medicine orthopedic surgeon she recommended talking to oncologic orthopedic surgery. After discussion with them they recommended medicine be the primary. Dr. Sherrie Bruce with the medicine service was contacted who did not want to admit the patient at the time but requested labs, tumor markers and imaging be done at [facility]. These have been ordered as listed above. (3) Chronic pulmonary embolism Assessment/Plan: Patient is normally on Coumadin 5 mg on Mondays and Tuesdays and 2 mg the rest of the days of the week. At presentation his Coumadin INR was 5. His Coumadin was held and he was given vitamin K 10 mg x 1. Recheck of INR was 1.8 and subsequently 1.2. Coumadin was resumed on 12/08/2021. INR on 12/11/2021 pending. (5) Suicidal ideation Assessment/Plan: Fluoxetine 20 mg p.o. daily (6) BPH w urinary obs/LUTS Assessment/Plan: On tamsulosin. (7) Anemia Assessment/Plan: Stable. Hemoglobin 9.9. We will continue to monitor. - Current Meds Current Meds: Current Medications Generic Name Dose Route Start Last Admin Trade Name Freq PRN Reason Stop Dose Admin Acetaminophen 650 mg 12/06/21 15:06 12/09/21 04:47 Acetaminophen 325 Mg Tablet PO 650 mg Q4HR PRN Administration Pain 1 to 4 Calcium Carbonate/Glycine 500 mg 12/07/21 12:00 12/11/21 10:52 Calcium Carbonate Chew 500 Mg Tablet PO 500 mg BID PETEY Administration Cholecalciferol 50 mcg 12/07/21 12:00 12/11/21 10:53 Cholecalciferol 25 Mcg Tablet PO 50 mcg DAILY PETEY Administration Docusate Sodium 250 - 500 mg 12/07/21 13:00 12/11/21 10:56 Docusate Sodium 250 Mg Capsule PO 250 mg DAILY PETEY Administration Fluoxetine HCl 20 mg 12/06/21 21:00 12/10/21 20:04 Fluoxetine 10 Mg Capsule PO 20 mg QPM PETEY Administration Hydromorphone HCl 20 mg 12/08/21 15:38 12/11/21 11:06 Hydromorphone Restaurant Cashier 20mg/100ml IV 20 mg PRN PRN Administration PAIN >8 Protocol Sodium Chloride 500 mls @ 20 mls/hr 12/08/21 15:47 12/10/21 18:05 Normal Saline 0.9% IV 20 mls/hr Q24H PRN Administration TKO RATE Ketorolac Tromethamine 15 mg 12/08/21 10:28 12/11/21 01:03 Ketorolac 15 Mg/Ml Vial IVP 12/13/21 10:27 15 mg Q6HR PRN Administration PAIN Oxycodone HCl 5 mg 12/06/21 15:06 12/09/21 04:47 Oxycodone 5 Mg Tablet PO 5 mg Q4HR PRN Administration Pain 5 to 7 Polyethylene Glycol 17 gm 12/07/21 09:00 12/11/21 10:58 Polyethylene Glycol 3350 17 Gm Packet PO Not Given DAILY PETEY Senna 8.6 - 17.2 mg 12/07/21 13:00 12/11/21 10:57 Senna 8.6 Mg Tablet PO 8.6 mg DAILY PETEY Administration Sodium Chloride 10 ml 12/06/21 15:06 12/10/21 17:32 Sodium Chloride Flush 0.9% 10 Ml Syringe IVP 10 ml PRN PRN Administration NEEDED PER PROVIDER ORDERS Sodium Chloride 10 ml 12/06/21 17:00 12/11/21 10:59 Sodium Chloride Flush 0.9% 10 Ml Syringe IVP 10 ml 0100,0900,1700 PETEY Administration Tamsulosin HCl 0.4 mg 12/06/21 21:00 12/11/21 11:21 Tamsulosin 0.4 Mg Capsule PO 0.4 mg DAILY PETEY Administration Warfarin Sodium 5 mg 12/10/21 14:00 12/10/21 13:31 Warfarin 5 Mg Tablet PO 5 mg MOTH PETEY Administration Warfarin Sodium 2 mg 12/08/21 14:00 12/09/21 13:34 Warfarin 1 Mg Tablet PO 2 mg SuTuWeFrSa PETEY Administration - Lab Result Fish Bone Diagrams: 12/11/21 09:07 12/11/21 09:07 - Additional Planning My Orders: My Active Orders 12/12/21 05:00 BMP - BASIC METABOLIC PANEL [CHEM] DAILYLAB CBC - COMP BLD CT W/AUTO DIFF [HEME] DAILYLAB 12/13/21 05:00 BMP - BASIC METABOLIC PANEL [CHEM] DAILYLAB CBC - COMP BLD CT W/AUTO DIFF [HEME] DAILYLAB 12/14/21 05:00 BMP - BASIC METABOLIC PANEL [CHEM] DAILYLAB CBC - COMP BLD CT W/AUTO DIFF [HEME] DAILYLAB 12/15/21 05:00 BMP - BASIC METABOLIC PANEL [CHEM] DAILYLAB CBC - COMP BLD CT W/AUTO DIFF [HEME] DAILYLAB 12/16/21 05:00 BMP - BASIC METABOLIC PANEL [CHEM] DAILYLAB CBC - COMP BLD CT W/AUTO DIFF [HEME] DAILYLAB 12/17/21 05:00 BMP - BASIC METABOLIC PANEL [CHEM] DAILYLAB CBC - COMP BLD CT W/AUTO DIFF [HEME] DAILYLAB 12/18/21 05:00 BMP - BASIC METABOLIC PANEL [CHEM] DAILYLAB CBC - COMP BLD CT W/AUTO DIFF [HEME] DAILYLAB Subjective - Subjective Patient Reports: Other (Patient's pain persist. He rated it 6-8 out of 10.) Objective Vital Signs: Vital Signs - 24 hr 12/10/21 12/10/21 12/10/21 14:00 15:50 17:34 Temperature 36.6 C Heart Rate [ 88 Brachial] Respiratory 15 19 18 Rate Blood Pressure 116/49 L [Right Brachial artery] O2 Saturation 96 12/10/21 12/11/21 12/11/21 21:39 00:34 01:09 Temperature 36.8 C Heart Rate [ 93 Brachial] Respiratory 16 16 15 Rate Blood Pressure 128/60 [Right Brachial artery] O2 Saturation 92 12/11/21 12/11/21 06:00 07:59 Temperature 36.7 C Heart Rate [ 83 Brachial] Respiratory 16 21 Rate Blood Pressure 123/68 [Right Brachial artery] O2 Saturation 93 Oxygen O2 Source Room air I&O (Last 24 Hrs): Intake and Output Totals x24h 12/09/21 12/10/21 12/11/21 23:59 23:59 23:59 Intake Total 5729.843 3553.333 360 Output Total 650 825 350 Balance 912.333 378.333 10 Comments/Notes: General: Alert, Oriented x3, Moderate distress, Severe distress HEENT: PERRLA, EOMI Neck: Supple, No JVD Neuro: Alert, Oriented Times 3 Cardiovascular: Regular rate, No murmurs Respiratory: Chest non-tender, No respiratory distress, Breath sounds nml Abdomen: Normal bowel sounds, Soft, No tenderness Extremities: No clubbing, No cyanosis, No edema Skin: No rashes, No breakdown - Results Results: Laboratory Results WBC 8.5 x10^3/uL (4.8-10.8) 12/11/21 09:07 RBC 3.16 10^6/uL (4.70-6.10) L 12/11/21 09:07 Hgb 9.9 g/dL (14.0-18.0) L 12/11/21 09:07 Hct 29.7 % (42.0-52.0) L 12/11/21 09:07 MCV 94.0 fL (80.0-94.0) 12/11/21 09:07 MCH 31.3 pg (27.0-31.0) H 12/11/21 09:07 MCHC 33.3 g/dL (32.0-36.0) 12/11/21 09:07 RDW 12.7 % (12.0-15.0) 12/11/21 09:07 Plt Count 364 10^3/uL (130-450) 12/11/21 09:07 MPV 8.4 fL (7.4-11.4) 12/11/21 09:07 Neut # (Auto) 6.2 10^3/uL (1.5-6.6) 12/11/21 09:07 Lymph # (Auto) 1.2 10^3/uL (1.5-3.5) L 12/11/21 09:07 [place] # (Auto) 0.7 10^3/uL (0.0-1.0) 12/11/21 09:07 Eos # (Auto) 0.3 10^3/uL (0.0-0.7) 12/11/21 09:07 Baso # (Auto) 0.0 10^3/uL (0.0-0.1) 12/11/21 09:07 Absolute Nucleated RBC 0.00 x10^3/uL 12/11/21 09:07 Nucleated RBC % 0.0 /100WBC 12/11/21 09:07 PT 14.1 secs (9.9-12.6) H 12/10/21 06:19 INR 1.3 (0.8-1.2) H 12/10/21 06:19 Sodium 132 mmol/L (135-145) L 12/11/21 09:07 Potassium 4.1 mmol/L (3.5-5.0) 12/11/21 09:07 Chloride 98 mmol/L (101-111) L 12/11/21 09:07 Carbon Dioxide 26 mmol/L (21-32) 12/11/21 09:07 Anion Gap 8.0 (6-13) 12/11/21 09:07 BUN 19 mg/dL (6-20) 12/11/21 09:07 Creatinine 0.7 mg/dL (0.6-1.2) 12/11/21 09:07 Estimated GFR (MDRD) 114 (>89) 12/11/21 09:07 Glucose 191 mg/dL (70-100) H 12/11/21 09:07 Calcium 7.5 mg/dL (8.5-10.3) L 12/11/21 09:07 Total Bilirubin 0.5 mg/dL (0.2-1.0) 12/06/21 11:47 AST 14 IU/L (10-42) 12/06/21 11:47 ALT 13 IU/L (10-60) 12/06/21 11:47 Alkaline Phosphatase 141 IU/L (42-121) H 12/06/21 11:47 Lipase 23 U/L (22-51) 12/06/21 11:47 Carcinoembryonic Ag 3.2 ng/mL 12/08/21 12:35 CA 125 Antigen 13.5 U/mL (0.0-35.0) 12/08/21 05:19 Prostate Specific Ag > 1210.000 ng/mL (0.000-2.000) H 12/08/21 12:35 Free PSA > 160.000 ng/mL (0.16-2.81) H 12/08/21 12:35 % Free PSA Calc TNP 12/08/21 12:35 25-OH Vitamin D Total 44 ng/mL (30-100) 12/07/21 11:36 TSH 2.48 uIU/mL (0.34-5.60) 12/08/21 05:19 Urine Color YELLOW 12/06/21 19:30 Urine Clarity HAZY (CLEAR) 12/06/21 19:30 Urine pH 5.5 PH (5.0-7.5) 12/06/21 19:30 Ur Specific [place] >=1.030 (1.002-1.030) H 12/06/21 19:30 Urine Protein 30 mg/dL (NEGATIVE) H 12/06/21 19:30 Urine Glucose (UA) NEGATIVE mg/dL (NEGATIVE) 12/06/21 19:30 Urine Ketones NEGATIVE mg/dL (NEGATIVE) 12/06/21 19:30 Urine Occult Blood SMALL (NEGATIVE) H 12/06/21 19:30 Urine Nitrite NEGATIVE (NEGATIVE) 12/06/21 19:30 Urine Bilirubin NEGATIVE (NEGATIVE) 12/06/21 19:30 Urine Urobilinogen 0.2 (NORMAL) E.U./dL (NORMAL) 12/06/21 19:30 Ur Leukocyte Esterase NEGATIVE (NEGATIVE) 12/06/21 19:30 Urine RBC 6-10 /HPF (0-5) H 12/06/21 19:30 Urine WBC 0-3 /HPF (0-3) 12/06/21 19:30 Ur Squamous Epith Cells RARE Squamous (<= Few) 12/06/21 19:30 Urine Bacteria Rare /HPF (None Seen) 12/06/21 19:30 Urine Casts 3-5 Hyaline Casts /LPF 12/06/21 19:30 Urine Mucus Few Strands 12/06/21 19:30 Urine Sperm PRESENT 12/06/21 19:30 Urine Culture Comments NOT INDICATED 12/06/21 19:30 Nasal Adenovirus (PCR) NOT DETECTED 12/06/21 14:35 Nasal B. parapertussis DNA (PCR) NOT DETECTED 12/06/21 14:35 Nasal Coronavir 229E PCR NOT DETECTED 12/06/21 14:35 Nasal Coronavir HKU1 PCR NOT DETECTED 12/06/21 14:35 Nasal Coronavir NL63 PCR NOT DETECTED 12/06/21 14:35 Nasal Coronavir OC43 PCR NOT DETECTED 12/06/21 14:35 Nasal Enterovir/Rhinovir PCR NOT DETECTED 12/06/21 14:35 Nasal Influenza B PCR NOT DETECTED 12/06/21 14:35 Nasal Influenza A PCR NOT DETECTED 12/06/21 14:35 Nasal Parainfluen 1 PCR NOT DETECTED 12/06/21 14:35 Nasal Parainfluen 2 PCR NOT DETECTED 12/06/21 14:35 Nasal Parainfluen 3 PCR NOT DETECTED 12/06/21 14:35 Nasal Parainfluen 4 PCR NOT DETECTED 12/06/21 14:35 Nasal RSV (PCR) NOT DETECTED 12/06/21 14:35 Nasal B.pertussis DNA PCR NOT DETECTED 12/06/21 14:35 Nasal C.pneumoniae (PCR) NOT DETECTED 12/06/21 14:35 [place] Human Metapneumo PCR NOT DETECTED 12/06/21 14:35 Nasal M.pneumoniae (PCR) NOT DETECTED 12/06/21 14:35 Nasal SARS-CoV-2 (PCR) NOT DETECTED 12/06/21 14:35 Ethyl Alcohol < 5.0 mg/dL 12/06/21 11:47 ABX Reporting Has patient been on IV antibiotics over the past 48 hours?: No
[2021-12-11 12:34] LABS: PT - PROTHROMBIN TIME 22.7 secs (9.9-12.6)
[2021-12-11] MEDS: WARFARIN 1 MG TABLET PO SCH (13:50)
[2021-12-11] MEDS: FLUoxetine 10 MG CAPSULE PO SCH (20:17)
[2021-12-12] MEDS: SODIUM CHLORIDE FLUSH 0.9% 10 ML SYRINGE IVP SCH ×3 (02:21→18:33)
[2021-12-12] MEDS: KETOROLAC 15 MG/ML VIAL IVP PRN ×3 (02:27→21:39)
[2021-12-12] MEDS: HYDROmorphone PCA 20MG/100ML IV PRN (07:02)
[2021-12-12 07:52] LABS: CALCIUM 7.8 mg/dL (8.5-10.3); CREATININE 0.7 mg/dL (0.6-1.2); POTASSIUM 4.7 mmol/L (3.5-5.0)
[2021-12-12 07:55] LABS: BASOPHILS % (AUTO) 0.3 %; EOSINOPHILS # (AUTO) 0.1 10^3/uL (0.0-0.7); EOSINOPHILS % (AUTO) 0.7 %; HCT - HEMATOCRIT 31.3 % (42.0-52.0); HGB - HEMOGLOBIN 10.5 g/dL (14.0-18.0); LYMPHOCYTES # (AUTO) 1.5 10^3/uL (1.5-3.5); LYMPHOCYTES % (AUTO) 12.7 %; MEAN CORPUSCULAR HGB CONC 33.5 g/dL (32.0-36.0); MEAN CORPUSCULAR VOLUME 92.3 fL (80.0-94.0); MEAN PLATELET VOLUME 8.5 fL (7.4-11.4); MONOCYTES # (AUTO) 1.3 10^3/uL (0.0-1.0); MONOCYTES % (AUTO) 10.6 %; NEUTROPHILS # (AUTO) 8.9 10^3/uL (1.5-6.6); NEUTROPHILS % (AUTO) 75.4 %; PLT - PLATELET COUNT 450 10^3/uL (130-450); RED BLOOD COUNT 3.39 10^6/uL (4.70-6.10); RED CELL DISTRIBUTION WIDTH 12.5 % (12.0-15.0); WHITE BLOOD COUNT 11.9 x10^3/uL (4.8-10.8)
--- NOTE | 2021-12-12 07:57 | PROVIDER PROGRESS NOTE ---
Assessment/Plan - Problem List (1) Pathologic fracture of femoral neck Assessment/Plan: 12/12/[address] Amelie Cota with the hospitalist service at today who officially accepted the patient for transfer. I was informed by the transfer center that a bed would likely be available tomorrow 12/13/2021. Thus anticipating transferring the patient on 12/13/2021. Will continue pain management with Dilaudid FREELANCE INTERPRETER/TRANSLATOR pump in the meantime. 12/11/21 Dr. Bond with orthopedics surgery at [facility] agreed to see the patient in consult upon arrival at the facility. He plans to potentially do surgery on 12/14/2021 Awaiting a call from the hospitalist team to discuss the patient for acceptance to their service as primary. The call has been limited to date by bed availability. In the meantime we will continue managing patient's pain on Dilaudid pump. 12/09/21 Suspect pathological femoral neck fracture is due to prostate cancer. Free PSA was greater than 160 and prostate specific antigen was greater than 1210. MRI of the pelvis pending Plan to discuss with hospitalist team at [place] once result present. Patient is currently on a FREELANCE INTERPRETER/TRANSLATOR Dilaudid pump. 12/08/21 CT of the chest and abdomen with contrast pending. MRI of the pelvis and femur with contrast pending. PSA, CEA, CA125 pending. The patient was presented to the orthopedic surgeon Dr. Browne at [facility] on 12/07/21. Given that she was sports medicine orthopedic surgeon she recommended talking to oncologic orthopedic surgery. After discussion with them they recommended medicine be the primary. Dr. Sherrie Bruce with the medicine service was contacted who did not want to admit the patient at the time but requested labs, tumor markers and imaging be done at [facility]. These have been ordered as listed above. (3) Chronic pulmonary embolism Assessment/Plan: Patient is normally on Coumadin 5 mg on Mondays and Tuesdays and 2 mg the rest of the days of the week. At presentation his Coumadin INR was 5. His Coumadin was held and he was given vitamin K 10 mg x 1. Recheck of INR was 1.8 and subsequently 1.2. Coumadin was resumed on 12/08/2021. INR on 12/12/[address] Amelie Cota's (hospitalist at [facility]) request Coumadin was stopped today. Will recheck INR tomorrow (5) Suicidal ideation Assessment/Plan: Fluoxetine 20 mg p.o. daily (6) BPH w urinary obs/LUTS Assessment/Plan: On tamsulosin. (7) Anemia Assessment/Plan: Stable. Hemoglobin 10.5 We will continue to monitor. (8) Constipation Assessment/Plan: On MiraLAX, Dulcolax suppositories and senna daily. Patient given a dose of lactulose 20 g x 1 today. - Current Meds Current Meds: Current Medications Generic Name Dose Route Start Last Admin Trade Name Freq PRN Reason Stop Dose Admin Acetaminophen 650 mg 12/06/21 15:06 12/09/21 04:47 Acetaminophen 325 Mg Tablet PO 650 mg Q4HR PRN Administration Pain 1 to 4 Calcium Carbonate/Glycine 500 mg 12/07/21 12:00 12/11/21 20:17 Calcium Carbonate Chew 500 Mg Tablet PO 500 mg BID PETEY Administration Cholecalciferol 50 mcg 12/07/21 12:00 12/11/21 10:53 Cholecalciferol 25 Mcg Tablet PO 50 mcg DAILY PETEY Administration Docusate Sodium 250 - 500 mg 12/07/21 13:00 12/11/21 10:56 Docusate Sodium 250 Mg Capsule PO 250 mg DAILY PETEY Administration Fluoxetine HCl 20 mg 12/06/21 21:00 12/11/21 20:17 Fluoxetine 10 Mg Capsule PO 20 mg QPM PETEY Administration Hydromorphone HCl 20 mg 12/08/21 15:38 12/12/21 07:02 Hydromorphone Long Distance Billing Operator 20mg/100ml IV 20 mg PRN PRN Administration PAIN >8 Protocol Sodium Chloride 500 mls @ 20 mls/hr 12/08/21 15:47 12/12/21 00:21 Normal Saline 0.9% IV Infused Q24H PRN Infusion TKO RATE Ketorolac Tromethamine 15 mg 12/08/21 10:28 12/12/21 02:27 Ketorolac 15 Mg/Ml Vial IVP 12/13/21 10:27 15 mg Q6HR PRN Administration PAIN Oxycodone HCl 5 mg 12/06/21 15:06 12/09/21 04:47 Oxycodone 5 Mg Tablet PO 5 mg Q4HR PRN Administration Pain 5 to 7 Polyethylene Glycol 17 gm 12/07/21 09:00 12/11/21 10:58 Polyethylene Glycol 3350 17 Gm Packet PO Not Given DAILY PETEY Senna 8.6 - 17.2 mg 12/07/21 13:00 12/11/21 10:57 Senna 8.6 Mg Tablet PO 8.6 mg DAILY PETEY Administration Sodium Chloride 10 ml 12/06/21 15:06 12/10/21 17:32 Sodium Chloride Flush 0.9% 10 Ml Syringe IVP 10 ml PRN PRN Administration NEEDED PER PROVIDER ORDERS Sodium Chloride 10 ml 12/06/21 17:00 12/12/21 02:21 Sodium Chloride Flush 0.9% 10 Ml Syringe IVP Not Given 0100,0900,1700 [facility] Tamsulosin HCl 0.4 mg 12/06/21 21:00 12/11/21 11:21 Tamsulosin 0.4 Mg Capsule PO 0.4 mg DAILY PETEY Administration Warfarin Sodium 5 mg 12/10/21 14:00 12/10/21 13:31 Warfarin 5 Mg Tablet PO 5 mg MOTH PETEY Administration Warfarin Sodium 2 mg 12/08/21 14:00 12/11/21 13:50 Warfarin 1 Mg Tablet PO 2 mg [id number] PETEY Administration - Lab Result Fish Bone Diagrams: 12/12/21 06:54 12/12/21 06:54 - Additional Planning My Orders: My Active Orders 12/12/21 06:54 CBC - COMP BLD CT W/AUTO DIFF [HEME] DAILYLAB PT WITH INR [COAG] DAILYLAB 12/13/21 05:00 BMP - BASIC METABOLIC PANEL [CHEM] DAILYLAB CBC - COMP BLD CT W/AUTO DIFF [HEME] DAILYLAB PT WITH INR [COAG] DAILYLAB 12/14/21 05:00 BMP - BASIC METABOLIC PANEL [CHEM] DAILYLAB CBC - COMP BLD CT W/AUTO DIFF [HEME] DAILYLAB PT WITH INR [COAG] DAILYLAB 12/15/21 05:00 BMP - BASIC METABOLIC PANEL [CHEM] DAILYLAB CBC - COMP BLD CT W/AUTO DIFF [HEME] DAILYLAB 12/16/21 05:00 BMP - BASIC METABOLIC PANEL [CHEM] DAILYLAB CBC - COMP BLD CT W/AUTO DIFF [HEME] DAILYLAB 12/17/21 05:00 BMP - BASIC METABOLIC PANEL [CHEM] DAILYLAB CBC - COMP BLD CT W/AUTO DIFF [HEME] DAILYLAB 12/18/21 05:00 BMP - BASIC METABOLIC PANEL [CHEM] DAILYLAB CBC - COMP BLD CT W/AUTO DIFF [HEME] DAILYLAB Subjective - Subjective Patient Reports: Other (Patient appeared more comfortable today. Complained of constipation.) Objective Vital Signs: Vital Signs - 24 hr 12/11/21 12/11/21 12/11/21 07:59 10:00 14:00 Temperature 36.7 C Heart Rate [ 83 Brachial] Respiratory 21 16 16 Rate Blood Pressure 123/68 [Right Brachial artery] O2 Saturation 93 12/11/21 12/11/21 12/11/21 16:00 18:00 19:30 Temperature 37.3 C Heart Rate [ 88 Brachial] Respiratory 20 14 18 Rate Blood Pressure 117/58 L [Right Brachial artery] O2 Saturation 92 12/12/21 12/12/21 12/12/21 00:21 02:00 06:00 Temperature 37.5 C Heart Rate [ 104 H Brachial] Respiratory 16 16 16 Rate Blood Pressure 132/61 H [Right Brachial artery] O2 Saturation 93 12/12/21 12/12/21 07:42 07:44 Temperature 36.4 C L Heart Rate [ 95 Brachial] Respiratory 16 19 Rate Blood Pressure 126/63 [Right Brachial artery] O2 Saturation 91 L Oxygen O2 Source Room air I&O (Last 24 Hrs): Intake and Output Totals x24h 12/10/21 12/11/21 12/12/21 23:59 23:59 23:59 Intake Total 8033.528 6085 0 Output Total 825 940 800 Balance 378.333 320 -800 Comments/Notes: General: Alert, Oriented x3, Moderate distress, Severe distress HEENT: PERRLA, EOMI Neck: Supple, No JVD Neuro: Alert, Oriented Times 3 Cardiovascular: Regular rate, No murmurs Respiratory: Chest non-tender, No respiratory distress, Breath sounds nml Abdomen: Normal bowel sounds, Soft, No tenderness Extremities: No clubbing, No cyanosis, No edema Skin: No rashes, No breakdown - Results Results: Laboratory Results WBC 8.5 x10^3/uL (4.8-10.8) 12/11/21 09:07 RBC 3.16 10^6/uL (4.70-6.10) L 12/11/21 09:07 Hgb 9.9 g/dL (14.0-18.0) L 12/11/21 09:07 Hct 29.7 % (42.0-52.0) L 12/11/21 09:07 MCV 94.0 fL (80.0-94.0) 12/11/21 09:07 MCH 31.3 pg (27.0-31.0) H 12/11/21 09:07 MCHC 33.3 g/dL (32.0-36.0) 12/11/21 09:07 RDW 12.7 % (12.0-15.0) 12/11/21 09:07 Plt Count 364 10^3/uL (130-450) 12/11/21 09:07 MPV 8.4 fL (7.4-11.4) 12/11/21 09:07 Neut # (Auto) 6.2 10^3/uL (1.5-6.6) 12/11/21 09:07 Lymph # (Auto) 1.2 10^3/uL (1.5-3.5) L 12/11/21 09:07 Loup # (Auto) 0.7 10^3/uL (0.0-1.0) 12/11/21 09:07 Eos # (Auto) 0.3 10^3/uL (0.0-0.7) 12/11/21 09:07 Baso # (Auto) 0.0 10^3/uL (0.0-0.1) 12/11/21 09:07 Absolute Nucleated RBC 0.00 x10^3/uL 12/11/21 09:07 Nucleated RBC % 0.0 /100WBC 12/11/21 09:07 PT 22.7 secs (9.9-12.6) H 12/11/21 12:20 INR 2.0 (0.8-1.2) H 12/11/21 12:20 Sodium 130 mmol/L (135-145) L 12/12/21 06:54 Potassium 4.7 mmol/L (3.5-5.0) 12/12/21 06:54 Chloride 97 mmol/L (101-111) L 12/12/21 06:54 Carbon Dioxide 25 mmol/L (21-32) 12/12/21 06:54 Anion Gap 8.0 (6-13) 12/12/21 06:54 BUN 13 mg/dL (6-20) 12/12/21 06:54 Creatinine 0.7 mg/dL (0.6-1.2) 12/12/21 06:54 Estimated GFR (MDRD) 114 (>89) 12/12/21 06:54 Glucose 135 mg/dL (70-100) H 12/12/21 06:54 Calcium 7.8 mg/dL (8.5-10.3) L 12/12/21 06:54 Total Bilirubin 0.5 mg/dL (0.2-1.0) 12/06/21 11:47 AST 14 IU/L (10-42) 12/06/21 11:47 ALT 13 IU/L (10-60) 12/06/21 11:47 Alkaline Phosphatase 141 IU/L (42-121) H 12/06/21 11:47 Lipase 23 U/L (22-51) 12/06/21 11:47 Carcinoembryonic Ag 3.2 ng/mL 12/08/21 12:35 CA 125 Antigen 13.5 U/mL (0.0-35.0) 12/08/21 05:19 Prostate Specific Ag > 1210.000 ng/mL (0.000-2.000) H 12/08/21 12:35 Free PSA > 160.000 ng/mL (0.16-2.81) H 12/08/21 12:35 % Free PSA Calc TNP 12/08/21 12:35 25-OH Vitamin D Total 44 ng/mL (30-100) 12/07/21 11:36 TSH 2.48 uIU/mL (0.34-5.60) 12/08/21 05:19 Urine Color YELLOW 12/06/21 19:30 Urine Clarity HAZY (CLEAR) 12/06/21 19:30 Urine pH 5.5 PH (5.0-7.5) 12/06/21 19:30 Ur Specific Dell >=1.030 (1.002-1.030) H 12/06/21 19:30 Urine Protein 30 mg/dL (NEGATIVE) H 12/06/21 19:30 Urine Glucose (UA) NEGATIVE mg/dL (NEGATIVE) 12/06/21 19:30 Urine Ketones NEGATIVE mg/dL (NEGATIVE) 12/06/21 19:30 Urine Occult Blood SMALL (NEGATIVE) H 12/06/21 19:30 Urine Nitrite NEGATIVE (NEGATIVE) 12/06/21 19:30 Urine Bilirubin NEGATIVE (NEGATIVE) 12/06/21 19:30 Urine Urobilinogen 0.2 (NORMAL) E.U./dL (NORMAL) 12/06/21 19:30 Ur Leukocyte Esterase NEGATIVE (NEGATIVE) 12/06/21 19:30 Urine RBC 6-10 /HPF (0-5) H 12/06/21 19:30 Urine WBC 0-3 /HPF (0-3) 12/06/21 19:30 Ur Squamous Epith Cells RARE Squamous (<= Few) 12/06/21 19:30 Urine Bacteria Rare /HPF (None Seen) 12/06/21 19:30 Urine Casts 3-5 Hyaline Casts /LPF 12/06/21 19:30 Urine Mucus Few Strands 12/06/21 19:30 Urine Sperm PRESENT 12/06/21 19:30 Urine Culture Comments NOT INDICATED 12/06/21 19:30 Nasal Adenovirus (PCR) NOT DETECTED 12/06/21 14:35 Nasal B. parapertussis DNA (PCR) NOT DETECTED 12/06/21 14:35 Nasal Coronavir 229E PCR NOT DETECTED 12/06/21 14:35 Nasal Coronavir HKU1 PCR NOT DETECTED 12/06/21 14:35 Nasal Coronavir NL63 PCR NOT DETECTED 12/06/21 14:35 Nasal Coronavir OC43 PCR NOT DETECTED 12/06/21 14:35 Nasal Enterovir/Rhinovir PCR NOT DETECTED 12/06/21 14:35 Nasal Influenza B PCR NOT DETECTED 12/06/21 14:35 Nasal Influenza A PCR NOT DETECTED 12/06/21 14:35 Nasal Parainfluen 1 PCR NOT DETECTED 12/06/21 14:35 Nasal Parainfluen 2 PCR NOT DETECTED 12/06/21 14:35 Nasal Parainfluen 3 PCR NOT DETECTED 12/06/21 14:35 Nasal Parainfluen 4 PCR NOT DETECTED 12/06/21 14:35 Nasal RSV (PCR) NOT DETECTED 12/06/21 14:35 Nasal B.pertussis DNA PCR NOT DETECTED 12/06/21 14:35 Nasal C.pneumoniae (PCR) NOT DETECTED 12/06/21 14:35 Randall Human Metapneumo PCR NOT DETECTED 12/06/21 14:35 Nasal M.pneumoniae (PCR) NOT DETECTED 12/06/21 14:35 Nasal SARS-CoV-2 (PCR) NOT DETECTED 12/06/21 14:35 Ethyl Alcohol < 5.0 mg/dL 12/06/21 11:47
[2021-12-12 08:04] LABS: INR 3.1 (0.8-1.2); PT - PROTHROMBIN TIME 34.1 secs (9.9-12.6)
[2021-12-12] MEDS ORDERED: BISACODYL 10 MG SUPP PR ONE (09:00)
[2021-12-12] MEDS ORDERED: LACTULOSE 10 GM /15 ML UDC PO ONE (10:58)
[2021-12-12] MEDS: oxyCODONE 5 MG TABLET PO PRN ×2 (11:05→18:33)
[2021-12-12] MEDS: ACETAMINOPHEN 325 MG TABLET PO PRN (11:05)
[2021-12-12] MEDS: CHOLECALCIFEROL 25 MCG TABLET PO SCH (11:05)
[2021-12-12] MEDS: DOCUSATE SODIUM 250 MG CAPSULE PO SCH (11:05)
[2021-12-12] MEDS: TAMSULOSIN 0.4 MG CAPSULE PO SCH (11:05)
[2021-12-12] MEDS: SENNA 8.6 MG TABLET PO SCH (11:05)
[2021-12-12] MEDS: polyethylene glycoL 3350 17 GM PACKET PO SCH (11:06)
[2021-12-12] MEDS: CALCIUM CARBONATE CHEW 500 MG TABLET PO SCH ×2 (11:06→21:39)
[2021-12-12] MEDS: SODIUM CHLORIDE FLUSH 0.9% 10 ML SYRINGE IVP PRN (13:37)
[2021-12-12 15:06] LABS: B. PARAPERTUSSIS- RESP PCR PAN NOT DETECTED; B. PERTUSSIS- RESP PCR PANEL NOT DETECTED; C. PNEUMONIAE- RESP PCR PANEL NOT DETECTED; CORONAVIRUS 229E-RESP PCR NOT DETECTED; CORONAVIRUS HKU1-RESP PCR NOT DETECTED; CORONAVIRUS NL63-RESP PCR NOT DETECTED; CORONAVIRUS OC43-RESP PCR NOT DETECTED; HUMAN METAPNEUMOVIRUS NOT DETECTED; INFLUENZA A- RESP PCR PANEL NOT DETECTED; INFLUENZA B - RESP PCR PANEL NOT DETECTED; M. PNEUMONIAE- RESP PCR PANEL NOT DETECTED; PARAINFLUENZA VIRUS 1 NOT DETECTED; PARAINFLUENZA VIRUS 2 NOT DETECTED; PARAINFLUENZA VIRUS 3 NOT DETECTED; PARAINFLUENZA VIRUS 4 NOT DETECTED; RHINOVIRUS/ENTEROVIRUS NOT DETECTED; RSV- RESP PCR PANEL NOT DETECTED; SARS-CoV-2 -RESP PCR PANEL NOT DETECTED
[2021-12-12] MEDS: FLUoxetine 10 MG CAPSULE PO SCH (21:39)
[2021-12-12] MEDS: SODIUM CHLORIDE 0.9% 500 ML IV PRN (21:39)
[2021-12-13] MEDS ORDERED: HYDROmorphone PCA 20MG/100ML IV PRN (01:02)
--- NOTE | 2021-12-13 01:18 | PROVIDER PROGRESS NOTE ---
Offline Cutter Note - Offline Cutter Note Offline Cutter Note: I was asked to see patient with hypersomnolence on MAITRE D Dilaudid pump, with mew low BP of 97/55 and new tachycardia with HR 136. I evaluated the patient: He was awake, answering questions normally, changing the channels on his TV controller. He had no complaints of pain and appeared in no distress. Vital signs were repeated.: Blood pressure 130/80, heart rate 136. Chest clear, heart tachycardic, abdomen soft Currently is getting Dilaudid MAITRE D pump set up 0.2 mg at its lowest continuous drip and he adjusteddose higher on his own. Labs and chart were reviewed. A STAT was EKG ordered which I interpreted: SVT, rate 143, right superior axis deviation, low voltage in the precordial leads, poor R wave progression, biphasic T waves in the inferior leads. There is no EKG for comparison. He apparently had no EKG done as a preop evaluation for possible hip surgery here. He has had no EKG at this institution in this EMR for comparison. Imp: SVT Hypotension while on continuous Dilaudid MAITRE D pump. Plan: Decrease the Dilaudid MAITRE D pump setting down to minimal rate being 0.1 mg Obtain stat troponin, D-dimer, free T4. Obtain a stat INR. His Coumadin was stopped yesterday in preparation for upcoming surgery, but he has a history of recurrent PEs and this SVT with R axis deviation may be a sign of a PE. If the INR is now subtherapeutic, will put him on IV heparin drip which then can be turned off 6 hours before orthopedic surgery. An urgent Echo would be the next plan, however we have no Echo service over the weekend (today is Tuesday), and also he is being transferred to [facility] in several hours. We will need to update the Hospitalist service that is excepting him, regarding this new arrhythmia. Will give a saline bolus for his "soft" BP and tachycardia. Will give diltiazem IV push for rate control. If necessary, we will transfer him to the ICU and begin a diltiazem IV drip, for rate control. CRITICAL CARE TIME SPENT: 30 min
[2021-12-13] MEDS ORDERED: SODIUM CHLORIDE 0.9% 500 ML IV ONE ×2 (01:20→10:34)
[2021-12-13 01:58] LABS: INR 4.1 (0.8-1.2); PT - PROTHROMBIN TIME 45.4 secs (9.9-12.6)
[2021-12-13 02:04] LABS: D-DIMER 857.9 ng/mL (200.0-255.0)
[2021-12-13] MEDS: SODIUM CHLORIDE FLUSH 0.9% 10 ML SYRINGE IVP SCH ×2 (02:37→09:22)
[2021-12-13 06:51] LABS: BASOPHILS # (AUTO) 0.1 10^3/uL (0.0-0.1); BASOPHILS % (AUTO) 0.5 %; EOSINOPHILS # (AUTO) 0.2 10^3/uL (0.0-0.7); EOSINOPHILS % (AUTO) 1.2 %; HCT - HEMATOCRIT 27.6 % (42.0-52.0); HGB - HEMOGLOBIN 9.2 g/dL (14.0-18.0); LYMPHOCYTES # (AUTO) 1.3 10^3/uL (1.5-3.5); LYMPHOCYTES % (AUTO) 10.4 %; MEAN CORPUSCULAR HEMOGLOBIN 30.6 pg (27.0-31.0); MEAN CORPUSCULAR HGB CONC 33.3 g/dL (32.0-36.0); MEAN CORPUSCULAR VOLUME 91.7 fL (80.0-94.0); MEAN PLATELET VOLUME 8.5 fL (7.4-11.4); MONOCYTES % (AUTO) 7.9 %; NEUTROPHILS # (AUTO) 10.2 10^3/uL (1.5-6.6); NEUTROPHILS % (AUTO) 79.5 %; PLT - PLATELET COUNT 472 10^3/uL (130-450); RED BLOOD COUNT 3.01 10^6/uL (4.70-6.10); RED CELL DISTRIBUTION WIDTH 12.8 % (12.0-15.0); WHITE BLOOD COUNT 12.9 x10^3/uL (4.8-10.8)
[2021-12-13 07:02] LABS: CALCIUM 7.5 mg/dL (8.5-10.3); CREATININE 0.7 mg/dL (0.6-1.2); POTASSIUM 4.7 mmol/L (3.5-5.0)
[2021-12-13 07:11] LABS: INR 4.1 (0.8-1.2); PT - PROTHROMBIN TIME 45.2 secs (9.9-12.6)
[2021-12-13] MEDS ORDERED: CHERRY SYRUP 10 ML UDC PO ONE (07:44)
[2021-12-13] MEDS ORDERED: PHYTONADIONE 10 MG/ML AMP PO ONE (07:44)
[2021-12-13] MEDS ORDERED: PHYTONADIONE INJ (ADULT) 10 MG in SODIUM CHLORIDE 0.9% 50 ML IV ONE (09:00)
[2021-12-13] MEDS: CHOLECALCIFEROL 25 MCG TABLET PO SCH (09:22)
[2021-12-13] MEDS: ACETAMINOPHEN 325 MG TABLET PO PRN ×2 (09:22→14:00)
[2021-12-13] MEDS: TAMSULOSIN 0.4 MG CAPSULE PO SCH (09:22)
[2021-12-13] MEDS: oxyCODONE 5 MG TABLET PO PRN ×2 (09:22→14:00)
[2021-12-13] MEDS: polyethylene glycoL 3350 17 GM PACKET PO SCH (09:23)
[2021-12-13] MEDS: CALCIUM CARBONATE CHEW 500 MG TABLET PO SCH (09:23)
[2021-12-13] MEDS: SENNA 8.6 MG TABLET PO SCH (09:23)
[2021-12-13] MEDS: DOCUSATE SODIUM 250 MG CAPSULE PO SCH (09:23)
[2021-12-13] MEDS ORDERED: diltiaZEM INJ 5 MG/ML VIAL IVP ONE (11:55)
[2021-12-13] MEDS ORDERED: diltiaZEM 30 MG TABLET PO STA (11:56)
--- NOTE | 2021-12-13 12:08 | DISCHARGE SUMMARY ---
Discharge Summary Admit Date: 12/06/21 Discharge Date: 12/13/21 Discharging Provider: Riccardo Menon Primary Care Provider: Dr Kruse at [facility] Code Status: Attempt Resuscitation Condition at Discharge: Stable Discharge Disposition: 02 Transfer Acute Care Hosp - DIAGNOSES Admission Diagnoses: Pathological left femoral neck fracture Frequent fractures of bone Supratherapeutic INR Suicidal ideation Elevated WBC BPH Chronic pulmonary embolism Discharge Diagnoses with Status of Each Condition: Pathological left femoral neck fracture: Acute. Presumed secondary to presumed metastatic prostate cancer Frequent fractures of bone Supratherapeutic INR: Coumadin held. 10 mg vitamin K IV given x1. Suicidal ideation: Situational due to excruciating pain. Elevated WBC: Acute. Reactive. Due to pain BPH: On tamsulosin Chronic pulmonary embolism: Coumadin on hold since 12/11/21 due to supratherapeutic INR. INR on 12/13/21 is 4.1. Patient given 10 mg of vitamin K IV x1 Anemia: Stable hemoglobin 9.2 to 10.5 Constipation: Acute. Likely secondary to Dilaudid REHABILITATION THERAPY AIDE pump. Status post bowel regimen. Resolved. - HPI History of Present Illness: Pt presented today to the ED due to continued left hip pain after he was seen 12/02. He had been in the car with his daughter driving when he had acute onset hip pain and was unable to bear weight. He had a previous left inferior pubic ra mous pelvic fracture (05/2021) that occurred suddenly while he was sitting on the edge of his bathtub and was also found to have a femoral neck fracture at the ED on 12/02 that were again visualized today. He states that he has had a history of frequent fractures since the age of 3 when he fractured his left femur, fibula and tibia in a sledding accident. He has fractured ribs, both radius and ulna b ones, wrist bones, and vertebrae. He denies any fevers, weight loss, decreased appetite, or trauma to the area. His PCP is Dr. Kruse at [facility] - he has not been in a while due to distance. Patient was admitted on 12/06/2021 with left hip pain. Work-up in the ED showed a pathological left femoral neck fracture. Further imaging showed metastatic disease in the pelvis. Free PSA level was greater than 160 and specific prostate antigen was greater than 1210. As a result it is presumed that the fracture is due to prostate cancer metastatic to bone. After discussions between Dr. Aristides West (orthopedic surgeon at [facility]) and Dr. Bond (Orthopedic surgeon at [facility]), Dr. Bond agreed to see the patient in consult. The patient's care was then presented to Dr. Amelie Cota Who accepted the patient to the hospitalist service. Throughout the patient's hospital stay he has been treated with Dilaudid via REHABILITATION THERAPY AIDE pump. However he mostly rated his pain at least 6 out of 10. The patient was on Coumadin for chronic pulmonary embolism. He last received this on 12/11/2021. INR on 12/13/2021 was 4.3. As a result he was given 10 mg IV of vitamin K. The patient does not have any signs of bleeding. Hemoglobin has been stable between 9.2 and 10.5 throughout his hospital stay Overnight of 12/12/2021 he went into SVT which was nonsustained and HR as high as 142. With IV hydration this improved and resolved. In the morning of 12/13/2021 he was in SVT again with a heart rate as high as 121. He was administered diltiazem 10 mg IV x1 and then given diltiazem 30 mg p.o. x1 prior to transfer to the [facility]. - ALLERGIES Allergies/Adverse Reactions: Allergies Allergy/AdvReac Type Severity Reaction Status Date / Time adhesive Allergy Unknown Verified 12/06/21 11:33 meperidine [From Demerol] Allergy Unknown Verified 12/06/21 11:33 shellfish derived Allergy Anaphylaxis Verified 12/06/21 11:33 - MEDICATIONS Home Medications: Ambulatory Orders Medication Instructions Recorded Confirmed Warfarin [Coumadin] 5 mg PO MOTH 10/14/21 12/07/21 Acetaminophen [Acetaminophen Extra 1,000 mg PO Q8H PRN 12/07/21 12/07/21 Strength] Ascorbic Acid [Vitamin C] 500 mg PO BID 12/07/21 12/07/21 Calcium Carbonate [Tums (Calcium 500 mg PO BID PRN 12/07/21 12/07/21 Carbonate 500mg)] Cholecalciferol (Vitamin D3) 100 mcg PO DAILY 12/07/21 12/07/21 [Vitamin D3] Cyclobenzaprine HCl 5 mg PO TID PRN 12/07/21 12/07/21 FLUoxetine [PROzac] 20 mg PO DAILY 12/07/21 12/07/21 Vitamin B Complex 1 each PO DAILY 12/07/21 12/07/21 Warfarin Sodium [Coumadin] 2 mg PO SUTUWEFRSA 12/07/21 12/07/21 oxyCODONE [Roxicodone] 5 mg PO TID PRN 12/07/21 12/07/21 - PHYSICAL EXAM AT DISCHARGE General Appearance: positive: Alert, Moderate distress Eyes Bilateral: positive: PERRL, EOMI ENT: positive: No signs of dehydration Neck: positive: No JVD, Trachea midline Respiratory: positive: Chest non-tender, No respiratory distress, Breath sounds nml. negative: Wheezes, Rales, Rhonchi Cardiovascular: positive: No murmur, Tachycardia Abdomen: positive: Non-tender, No organomegaly, Nml bowel sounds, No distention. negative: Guarding, Rebound Skin: positive: Color nml, No rash, Warm, Dry Extremities: positive: No pedal edema Neurologic/Psychiatric: positive: Oriented x3, Mood/affect nml - LABS Result Diagrams: 12/13/21 05:40 12/13/21 05:40 - TIME SPENT Time Spent in Discharge (Minutes): 20
--- NOTE | 2021-12-13 12:16 | Discharge Plan ---
Discharge Plan Problem Reviewed?: Yes Disposition: 02 Transfer Acute Care Hosp Condition: Stable Diet: Cardiac Activity Restrictions: Per Therapy Health Concerns: Patient was admitted on 12/06/2021 with left hip pain. Work-up in the ED showed a pathological left femoral neck fracture. Further imaging showed metastatic disease in the pelvis. Free PSA level was greater than 160 and specific prostate antigen was greater than 1210. As a result it is presumed that the fracture is due to prostate cancer metastatic to bone. After discussions Between Dr. Aristides West (orthopedic surgeon at [facility]) and Dr. Bond (Orthopedic surgeon at [facility]), Dr. Bond agreed to see the patient in consult. The patient's care was then presented to Dr. Amelie Cota Who accepted the patient to the hospitalist service. Throughout the patient's hospital stay he has been treated with Dilaudid via CONTRACT RUNNER pump. However he mostly rated his pain at least 6 out of 10. The patient was on Coumadin for chronic pulmonary embolism. He last received this on 12/11/2021. INR on 12/13/2021 was 4.3. As a result he was given 10 mg IV of vitamin K. The patient does not have any signs of bleeding. Hemoglobin has been stable between 9.2 and 10.5 throughout his hospital stay Overnight of 12/12/2021 he went into SVT which was nonsustained and HR as high as 142. With IV hydration this improved and resolved. In the morning of 12/13/2021 he was in SVT again with a heart rate as high as 121. He was administered diltiazem 10 mg IV x1 and then given diltiazem 30 mg p.o. x1 prior to transfer to the [facility]. No Smoking: If you smoke, Please STOP! Call for help.
[2021-12-13] MEDS ORDERED: HYDROmorphone 1 MG/ML CARPUJECT IVP PRN (13:27)
[2021-12-13 14:00] VITALS: BP 113/53
[2021-12-13] MEDS: SODIUM CHLORIDE FLUSH 0.9% 10 ML SYRINGE IVP PRN (14:21)
== END 2021-12-13 14:35 | disposition short-term general hospital (02) | DRG 543 ==
LOC: EDUNIT# → ED 11:26 → MS2 15:06
PROVIDERS: ADMIT Specialist; ATTEND Internal Medicine
DX: M84.552A Pathological fracture in neoplastic disease, left femur, initial encounter for fracture (principal); C79.51 Secondary malignant neoplasm of bone; R45.851 Suicidal ideations; I27.82 Chronic pulmonary embolism; I47.1 Supraventricular tachycardia; C61 Malignant neoplasm of prostate; D64.9 Anemia, unspecified; D72.829 Elevated white blood cell count, unspecified; T40.2X5A Adverse effect of other opioids, initial encounter; K59.03 Drug induced constipation; Y92.239 Unspecified place in hospital as the place of occurrence of the external cause; F32.A Depression, unspecified; I95.9 Hypotension, unspecified; G62.9 Polyneuropathy, unspecified; N40.1 Benign prostatic hyperplasia with lower urinary tract symptoms; R35.1 Nocturia; R39.12 Poor urinary stream; R39.15 Urgency of urination; R79.1 Abnormal coagulation profile; Z20.822 Contact with and (suspected) exposure to COVID-19; Z56.0 Unemployment, unspecified; Z79.01 Long term (current) use of anticoagulants; Z79.899 Other long term (current) drug therapy; Z80.42 Family history of malignant neoplasm of prostate; Z81.8 Family history of other mental and behavioral disorders; Z82.0 Family history of epilepsy and other diseases of the nervous system; Z87.891 Personal history of nicotine dependence; Z88.5 Allergy status to narcotic agent; Z91.013 Allergy to seafood; Z91.048 Other nonmedicinal substance allergy status
CPT/HCPCS: 0202U; 36415; 71045; 71260; 72192; 72197; 73502; 73562; 73700; 74177; 80048; 80320; 81001; 82247; 82306; 82378; 83690; 84075; 84153; 84154; 84439; 84443; 84450; 84460; 84484; 85025; 85379; 85610; 86304; 93005; 93971; 96374; 96375; 99284; 99285; A9270; A9585; J1170; J3489; J7040; Q9967; 87086

== ENCOUNTER 2022-04-21 09:21 | Outpatient (CLI) | payer MEDICAID ==
--- NOTE | 2022-04-22 11:40 | Nuclear Medicine Report ---
PROCEDURE: Bone Whole Body INDICATIONS: PROSTATE CA RADIOPHARMACEUTICAL: 24.9 mCi Tc-99m MDP IV. TECHNIQUE: Delayed whole-body scintigrams were obtained approximately 3-4 hours after intravenous injection of r adiotracer. Anterior and posterior views were acquired from vertex to feet. Additional left and rig ht oblique views of the skull, cervical spine and pelvis were obtained. COMPARISON: CT abdomen/pelvis with contrast, 12/08/2021. CT chest with contrast, 12/08/2021. MRI with and without contrast pelvis, 12/09/2021. FINDINGS: There were areas of abnormal activity involving the left iliac bone, ischium and pubis, th e right inferior pubic ramus, sacrum, and proximal right femur, consistent with osseous metastases. There is photopenia in the left hip, likely secondary to hip arthroplasty. Increased uptake in the pr oximal left femur is indeterminate because of associated postsurgical change. No lesions are identified in skull, sternum, scapulae, ribs, and visualized long bones. There is phot openia in left hip, likely related to hip arthroplasty. Increase activity in the right femur is noted . IMPRESSION: 1. Areas of abnormal uptake in the left hemipelvis, right inferior pubic ramus, sacrum, proximal righ t femur, consistent with osseous metastasis. 2. Arthroplasty of the left hip. Increased activity in the proximal left femur is indeterminate becau se of associated postsurgical change. Metastatic disease is likely present given history of pathologi bettye fracture. Reviewed by: Marcel Johnson MD on 04/22/2022 11:38 AM PDT Approved by: Marcel Johnson MD on 04/22/2022 11:38 AM PDT Station ID: [id number]
== END 2022-04-21 09:22 | disposition home or self-care (01) ==
LOC: DI 09:21
PROVIDERS: ATTEND Internal Medicine Hematology & Oncology
DX: C61 Malignant neoplasm of prostate (principal); C79.51 Secondary malignant neoplasm of bone; Z96.642 Presence of left artificial hip joint
CPT/HCPCS: 78306

== ENCOUNTER 2022-12-08 12:38 | Outpatient (CLI) | payer MEDICAID ==
--- NOTE | 2022-12-08 18:58 | XRAY Report ---
PROCEDURE: Thoracic Spine 2 View INDICATIONS: METASTATIC BONE PAIN TECHNIQUE: 3 views of the thoracic spine were acquired. COMPARISON: None. FINDINGS: Bones: Generalized decreased osseous mineralization present. T7 and T8 vertebroplasty noted. No new c ompression fractures. No lytic or blastic lesion Soft tissues: No paravertebral stripe thickening. IMPRESSION: T7 and T8 vertebroplasty. No acute compression fractures Reviewed by: Hollis Watson MD on 12/08/2022 5:57 PM AKST Approved by: Hollis Watson MD on 12/08/2022 5:57 PM AKST Station ID: [id number]
== END 2022-12-08 12:39 | disposition home or self-care (01) ==
LOC: DI 12:38
PROVIDERS: ATTEND Physician Assistant
DX: C61 Malignant neoplasm of prostate (principal); M89.8X9 Other specified disorders of bone, unspecified site

== ENCOUNTER 2023-09-05 11:03 | Outpatient (CLI) | payer MEDICAID ==
[2023-09-05 12:47] LABS: ESTIMATED AVERAGE GLUCOSE 151 mg/dL (70-100); HEMOGLOBIN A1c% 6.9 % (4.27-6.07)
== END 2023-09-05 11:04 | disposition home or self-care (01) ==
LOC: LAB 11:03
PROVIDERS: ATTEND Nurse Practitioner Adult Health
DX: E11.42 Type 2 diabetes mellitus with diabetic polyneuropathy (principal)
CPT/HCPCS: 36415; 83036

== ENCOUNTER 2024-02-27 08:00 | Outpatient (CLI) | payer MEDICAID | END 2024-02-27 23:59 | disposition home or self-care (01) | LOC: PC 08:00 | PROVIDERS: ATTEND Nurse Practitioner Adult Health | DX: Z51.5 Encounter for palliative care (principal); G89.3 Neoplasm related pain (acute) (chronic); C61 Malignant neoplasm of prostate; C79.51 Secondary malignant neoplasm of bone; Z66 Do not resuscitate; I48.0 Paroxysmal atrial fibrillation; M62.81 Muscle weakness (generalized); F41.8 Other specified anxiety disorders; Z71.89 Other specified counseling; R53.83 Other fatigue | CPT/HCPCS: 99215 ==

== ENCOUNTER 2024-05-14 11:50 | Outpatient (CLI) | payer MEDICARE | END 2024-05-14 23:59 | disposition home or self-care (01) | LOC: PC 11:50 | PROVIDERS: ATTEND Nurse Practitioner Adult Health | DX: Z51.5 Encounter for palliative care (principal); C61 Malignant neoplasm of prostate; C79.51 Secondary malignant neoplasm of bone; G89.3 Neoplasm related pain (acute) (chronic); G62.9 Polyneuropathy, unspecified; R26.2 Difficulty in walking, not elsewhere classified; F41.8 Other specified anxiety disorders; R63.4 Abnormal weight loss; M62.81 Muscle weakness (generalized); Z68.1 Body mass index [BMI] 19.9 or less, adult; Z79.899 Other long term (current) drug therapy | CPT/HCPCS: 99215 ==

== ENCOUNTER 2024-08-22 09:20 | Emergency (ER) | payer MEDICARE ==
[2024-08-22 10:09] LABS: BASOPHILS # (AUTO) 0.1 10^3/uL (0.0-0.1); BASOPHILS % (AUTO) 0.8 %; EOSINOPHILS # (AUTO) 0.1 10^3/uL (0.0-0.7); EOSINOPHILS % (AUTO) 0.8 %; HGB - HEMOGLOBIN 13.3 g/dL (14.0-18.0); LYMPHOCYTES # (AUTO) 1.5 10^3/uL (1.5-3.5); MEAN CORPUSCULAR HEMOGLOBIN 33.8 pg (27.0-31.0); MEAN CORPUSCULAR HGB CONC 32.4 g/dL (32.0-36.0); MEAN CORPUSCULAR VOLUME 104.1 fL (80.0-94.0); MEAN PLATELET VOLUME 10.1 fL (7.4-11.4); MONOCYTES # (AUTO) 0.6 10^3/uL (0.0-1.0); MONOCYTES % (AUTO) 7.5 %; NEUTROPHILS % (AUTO) 72.5 %; PLT - PLATELET COUNT 248 10^3/uL (130-450); RED BLOOD COUNT 3.94 10^6/uL (4.70-6.10); WHITE BLOOD COUNT 8.3 x10^3/uL (4.8-10.8)
[2024-08-22 10:19] LABS: INR 1.1 (0.8-1.2); PT - PROTHROMBIN TIME 11.9 secs (9.9-12.6)
[2024-08-22 10:20] LABS: ALBUMIN/GLOBULIN RATIO 2.1 (1.0-2.2); BILIRUBIN,TOTAL 0.3 mg/dL (0.2-1.0); CREATININE 0.8 mg/dL (0.6-1.3); MAGNESIUM 1.9 mg/dL (1.7-2.3); POTASSIUM 3.7 mmol/L (3.5-4.5); TOTAL PROTEIN 5.9 g/dL (6.4-8.9)
[2024-08-22] MEDS ORDERED: iohexoL-300 100 ML VIAL ONE (11:17)
[2024-08-22] MEDS: iohexoL-300 100 ML VIAL IVP ONE (11:40)
--- NOTE | 2024-08-22 11:50 | CT Report ---
PROCEDURE: Head WO INDICATIONS: left eye blurring today TECHNIQUE: Noncontrast 4.5 mm thick angled axial sections acquired from the foramen magnum to the vertex. For r adiation dose reduction, the following was used: automated exposure control, adjustment of mA and/or kV according to patient size. COMPARISON: None. FINDINGS: Image quality: Excellent. CSF spaces: Basal cisterns are patent. No extra-axial fluid collections. Ventricles are normal in size and shape. Brain: No midline shift. No intracranial masses or hemorrhage. [place]o-white matter interface is norm al. Intracranial carotid calcifications. Age-related volume loss and mild, age-appropriate small ves laurence ischemic change. Skull and face: Calvarium and visualized facial bones are intact, without suspicious lesions. Sinuses: Visualized sinuses and mastoids are clear. IMPRESSION: No acute intracranial pathology. Reviewed by: Bobby Light MD on 08/22/2024 11:49 AM PDT Approved by: Bobby Light MD on 08/22/2024 11:49 AM PDT Station ID: [id number]
--- NOTE | 2024-08-22 12:04 | ED Physician Documentation ---
PD HPI OPHTHO - Stated complaint Stated Complaint: LT EYE BLURRED - Chief complaint Chief Complaint: Heent - History obtained from History obtained from: Patient - History of Present Illness Timing - onset: How many hours ago (few), Today Timing - duration: Hours Timing - details: Abrupt onset, Still present Location: Left Quality / character: Other (The patient denies any pain in the eye. He states that just started seeming cloudy with floating pattern of black spots.) Associated symptoms: No: FB sensation, Photophobia, Headache Contributing factors: Other (DOAC alf) Similar symptoms before: Has not had sx before Review of Systems Constitutional: denies: Fever, Chills Nose: denies: Rhinorrhea / runny nose, Congestion Throat: denies: Sore throat Respiratory: denies: Cough PD PAST MEDICAL HISTORY - Past Medical History Cardiovascular: None Respiratory: None, COPD Neuro: Peripheral neuropathy Endocrine/Autoimmune: None GI: GERD : Nocturia HEENT: None Psych: Depression Musculoskeletal: Other Derm: None - Past Surgical History General: Other Ortho: Other HEENT: Tonsil/Adenoidectomy - Present Medications Home Medications: Ambulatory Orders Medication Instructions Recorded Confirmed Acetaminophen [Acetaminophen Extra 650 mg PO Q8H PRN 12/07/21 05/14/24 Strength] Ascorbic Acid [Vitamin C] 500 mg PO BID 12/07/21 05/14/24 Cholecalciferol (Vitamin D3) 100 mcg PO DAILY 12/07/21 05/14/24 [Vitamin D3] FLUoxetine [PROzac] 60 mg PO DAILY 12/07/21 05/14/24 Vitamin B Complex 1 each PO DAILY 12/07/21 05/14/24 Abiraterone Acetate [Zytiga] 250 mg PO DAILY 04/20/22 05/14/24 Prednisone [Jacquelin] 5 mg PO BID 04/20/22 05/14/24 Apixaban [Eliquis] 5 mg PO UD 03/15/23 05/14/24 Docusate Sodium [Stool Softener] 250 mg PO BID 03/15/23 05/14/24 Mv-Min/Folic/K1/Lycopen/Lutein 1 each PO DAILY 03/15/23 05/14/24 [Centrum Silver Men Tablet] Tamsulosin [Flomax] 0.4 mg PO BID 03/15/23 05/14/24 Calcium Carb/Mag Ox/Zinc Sulf 2 each PO DAILY 02/13/24 05/14/24 [Lvk-Fsd-Spbe 334-134-5 mg Tab] Albuterol Sulf [Ventolin Hfa 2 puffs INH QID #1 each 08/22/24 Inhaler] Amox/Clav 875/125 [Augmentin] 1 each PO BID #10 tablet 08/22/24 - Allergies Allergies/Adverse Reactions: Allergies Allergy/AdvReac Type Severity Reaction Status Date / Time adhesive Allergy Unknown Verified 08/22/24 09:27 meperidine [From Demerol] Allergy Unknown Verified 08/22/24 09:27 shellfish derived Allergy Anaphylaxis Verified 08/22/24 09:27 - Social History Does the pt smoke?: Yes Smoking Status: Current every day smoker Does the pt drink ETOH?: Yes Does the pt have substance abuse?: No - Immunizations Immunizations are current?: No - POLST Patient has POLST: No PD ED PE NORMAL - Vitals Vital signs reviewed: Yes - General General: Alert and oriented X 3, No acute distress, Well developed/nourished - HEENT HEENT: PERRL (constricted pupils but reactive.), EOMI - Neck Neck: Supple, no meningeal sign, No adenopathy, No bruit - Cardiac Cardiac: RRR, No murmur - Respiratory Respiratory: No respiratory distress, Clear bilaterally - Derm Derm: Normal color, Warm and dry - Extremities Extremities: Normal ROM s pain, No edema, No calf tenderness / cord - Neuro Neuro: Alert and oriented X 3, broker in charge 2-12 intact, No motor deficit, No sensory deficit, Normal speech PD ED PE EXPANDED - Eyes Eyes: Anterior chambers clear, Unable to visualize fundi (cloudier view of left fundus. Generally has no visual field defects.). No: Hyphema Results - Vitals Vitals: Vital Signs - 24 hr 08/22/24 08/22/24 08/22/24 09:27 10:01 10:31 Temperature 36.5 C Heart Rate 84 70 65 Respiratory 16 17 20 Rate Blood Pressure 149/85 H O2 Saturation 100 97 98 08/22/24 08/22/24 08/22/24 11:01 11:30 12:00 Temperature Heart Rate 61 81 70 Respiratory 16 16 16 Rate Blood Pressure 98/76 165/92 H O2 Saturation 99 99 99 08/22/24 08/22/24 08/22/24 12:30 13:00 13:30 Temperature Heart Rate 70 69 79 Respiratory 16 14 17 Rate Blood Pressure 151/92 H 140/71 H 145/75 H O2 Saturation 97 97 98 Oxygen O2 Source Room air - Labs Labs: Laboratory Tests 08/22/24 08/22/24 08/22/24 09:40 09:40 09:40 WBC 8.3 RBC 3.94 L Hgb 13.3 L Hct 41.0 L MCV 104.1 H MCH 33.8 H MCHC 32.4 RDW 13.0 Plt Count 248 MPV 10.1 Neut # (Auto) 6.0 Lymph # (Auto) 1.5 [place] # (Auto) 0.6 Eos # (Auto) 0.1 Baso # (Auto) 0.1 Absolute Nucleated RBC 0.00 Nucleated RBC % 0.0 PT 11.9 INR 1.1 Sodium 140 Potassium 3.7 Chloride 108 Carbon Dioxide 26 Anion Gap 6.0 BUN 21 H Creatinine 0.8 Estimated GFR (MDRD) 97 Glucose 281 H Calcium 9.0 Magnesium 1.9 Total Bilirubin 0.3 AST 19 ALT 27 Alkaline Phosphatase 61 Total Protein 5.9 L Albumin 4.0 Globulin 1.9 L Albumin/Globulin Ratio 2.1 Lipase 44 - Rads (name of study) head CT and CT angio Relevant Findings:: Prelim report reviewed, EMP independent interpretation of test (no ICH, mass, acute process in head. Angio showing normal flow. Lung right upper lobe with groound glass patch 1x3 cm c/w pneumonia vs tumor and recommends 3 month followup imaging with current treatment for pneumonia. ) PD Medical Decision Making - ED course Complexity details: reviewed results (head CT without acute process. CT angio did not show any acute flow deficits. Noted in right upper lobe lung is small ground glass patchy area 1x3 cm c/w possible pneumonia vs tumor. Recommended 3 month follow up imaging. ), considered differential (The patient had onset of clouded vision diffusely on the left eye without any loss of visual field per se. No injury. He said he felt perhaps some slight weakness in the left arm but has chronic neuropathy with weak and numb extremities baseline.), d/w p atient, d/w oncology consultant (Dex Hart, Opthalmology, based on my eval and of my exam, will see pt in office. ) ED course: The patient with onset of impaired visual acuity without visual field loss onset this morning without any pain or injury. Not had any cold or flu symptoms. Does not wear contacts. He does wear glasses. He states he had a new prescription recently and just a regular eye exam from corrective and manual arts therapist in the last month or 2. There was concern for possible cataract so was referred to [facility]. He had not yet made an appointment as a referral just came through. The patient denies similar prior episodes. Initially after onset of this he thought he might have a slight weakness of the left arm but states baseline has neuropathy of some weakness and numbness in all extremities. No note of ataxia, headache, trouble speaking, facial weakness. Eye exam shows cloudy posterior chamber such that I cannot see the fundus well. Visual cruz are intact for pt and he can distinguish number of fingers held up in 4 quadrants. Consideration of posterior chamber bleeding: vitreous hemorrhage, retinal hemorrhage, retinal detachment. He has persistent visual deficit while in ED, not worsening. I talked with Dr. Hart, Opthalmology, who felt followup in office is reasonable time frame and can see pt Tuesday AM (2 days from now). Departure - Departure Disposition: Home, Self Care Clinical Impression: Right upper lobe pulmonary infiltrate, Blurring of visual image of left eye, Anticoagulant long-term use Condition: Stable Record reviewed to determine appropriate education?: Yes Instructions: ED Tear Retinal Follow-Up: KONG BAIN DO [Primary Care Provider] - Dex Hart MD [Provider Admit Priv/Credential] - Prescriptions: Amox/Clav 875/125 [Augmentin] 1 each PO BID #10 tablet Albuterol Sulf [Ventolin Hfa Inhaler] 2 puffs INH QID #1 each Comments: Light activity for the next couple of days until follow-up with ophthalmology on Tuesday. Call the safekeeping clerk office this afternoon for follow-up appointment Tuesday. I talked with Dr. Hart and he recommended that timeframe to see you. Concern is for a small blood vessel in the back of the eye or the retina to have loosened and have bled causing the clumps and cloudiness of vision.Try not to bend over or straining or heavy lift until follow-up. These activities could worsen or cause further bleeding or detachment. Bending over and upright will shake up the blood in the chamber sort of like a "snow globe". I would hold your blood thinner medicine until follow-up on Tuesday. Tylenol if needed for pains. Continue other usual medicines. Return if generally worsening symptoms. Also noted on your CT scan which was done to evaluate for the blood flow to the head and any concerns for bleeding or such in the head, in addition to a normal exam there, it was noted a small patchy area of fluid in the right upper lobe of the lung which may represent mild pneumonia versus a small nodule. Recommendation was to treat with a pneumonia type process with some antibiotics and follow-up through your primary care in a few months for reimaging to see if it is persistent or increased. I sent prescription to your preferred pharmacy. Forms: PCP List Discharge Date/Time: 08/22/24 14:09
--- NOTE | 2024-08-22 12:06 | CT Report ---
PROCEDURE: Angio Head/Neck INDICATIONS: left eye blurring today, on DOAC TECHNIQUE: After the administration of intravenous contrast, 1 mm thick sections acquired from the aortic arch t hrough the [place]. 3-dimensional xgwvjcd-qezddpitv-yydaasmbyz (MIP) and/or volume renderin g reformats were acquired of the central intracranial vasculature and neck separately. For radiation dose reduction, the following was used: automated exposure control, adjustment of mA and/or kV acco rding to patient size. CONTRAST: Omni 300 100ml COMPARISON: CT head from today, CT chest with contrast dated 12/08/2021. FINDINGS: Image quality: Diagnostic. HEAD CT: CSF Spaces: Basal cisterns are patent. No extra-axial fluid collections. Ventricles are normal in size and shape. Brain: No significant abnormality is seen for scanning technique. Skull and face: Calvarium and visualized facial bones appear intact, without suspicious lesions. Sinuses: Visualized sinuses and mastoids are clear. HEAD CT ANGIOGRAPHY: Anterior circulation: Intracranial internal carotid arteries are normal in size and flow. The flow within the paired anterior cerebral arteries is normal and symmetric. The flow within the middle cer ebral arteries is normal and symmetric. The anterior communicating artery is seen. No aneurysms are seen. Posterior circulation: Visualized portions of the vertebral arteries demonstrate normal caliber, and join to form a normal appearing basilar artery. Flow within the posterior cerebral arteries is norm al and symmetric. No aneurysms are seen. NECK CT ANGIOGRAPHY: Carotid system: The great vessels demonstrate a conventional anatomy as they arise from the aortic a rch. The origins of the common carotid arteries appear patent. The common carotid arteries demonstr ate normal caliber and courses. The bifurcation regions are both widely patent. The internal caroti d arteries demonstrate normal calibers and courses. Posterior circulation: The origins of the vertebral arteries both appear widely patent. The more [place] perior extracranial portions of both vertebral arteries also demonstrate normal courses and calibers. They join to form a normal appearing basilar artery. Soft tissues: Visualized neck soft tissues demonstrate no suspicious abnormalities. Bones: No suspicious bony lesions. Visualized cervical spine appears normally aligned. Moderate to severe biapical centrilobular emphysema. Development of a subsolid/groundglass opacity in the right apex measuring approximately 5.7 x 3.6 x 1.1 cm. There was a very minimal subtle opacity present on previous image 66 of series 3 of the 12/08/2021 study. IMPRESSION: 1.No significant intracranial arterial abnormality is seen. 2. No significant abnormality is seen within the arteries of the neck. 3. Moderate to severe centrilobular emphysema. 4. Development of a subsolid/groundglass opacity in the right apex measuring 1.1 x 3.6 cm. Suspect po ssible subtle patchy pneumonia versus adenocarcinoma in situ Comment: Recommend 3 month follow-up CT chest after treatment for presumed pneumonia. If this density remains, at that point would recommend PET/CT. The estimate of stenosis included in the report of the imaging study was calculated using the NASCET method Reviewed by: Bobby Light MD on 08/22/2024 12:05 PM PDT Approved by: Bobby Light MD on 08/22/2024 12:05 PM PDT Station ID: [id number]
[2024-08-22 13:51] VITALS: BP 145/75; O2SAT 98
[2024-08-22] MEDS: AMOX/CLAV 875 MG/125 MG TABLET PO STA (14:00)
== END 2024-08-22 14:09 | disposition home or self-care (01) ==
LOC: ED 09:20
DX: H53.8 Other visual disturbances (principal); R91.8 Other nonspecific abnormal finding of lung field; J44.9 Chronic obstructive pulmonary disease, unspecified; F17.200 Nicotine dependence, unspecified, uncomplicated; Z79.01 Long term (current) use of anticoagulants; Z79.899 Other long term (current) drug therapy
CPT/HCPCS: 36415; 70450; 70496; 70498; 80053; 83690; 83735; 85025; 85610; 93005; 99284; A9270; Q9967